=== PATIENT | female | born 1980 | race Caucasian/White ===

== ENCOUNTER → 2020-05-25 10:41 | Outpatient (BNVA) | payer MEDICAID, SELFPAY | PROVIDERS: PCP Internal Medicine; Referring Provider Internal Medicine; Visit Provider Internal Medicine Cardiovascular Disease | DX: I10 Essential (primary) hypertension (principal); G47.33 Obstructive sleep apnea (adult) (pediatric); E66.01 Morbid (severe) obesity due to excess calories; Z68.39 Body mass index [BMI] 39.0-39.9, adult; Z71.3 Dietary counseling and surveillance; Z79.899 Other long term (current) drug therapy | CPT/HCPCS: 93005; 99214 ==

== ENCOUNTER → 2020-08-18 11:28 | Outpatient (BNVA) | payer MEDICAID, SELFPAY | PROVIDERS: PCP Internal Medicine; Visit Provider Psychiatry & Neurology Neurology ==

== ENCOUNTER → 2021-02-23 08:51 | Outpatient (BNVA) | payer MEDICAID, SELFPAY | PROVIDERS: PCP Internal Medicine; Visit Provider Psychiatry & Neurology Neurology ==

== ENCOUNTER 2021-02-25 08:25 | Outpatient (REF) | payer MEDICAID, SELFPAY ==
--- NOTE | 2021-02-25 | EMG_ITS ---
Bilateral median and ulnar motor and sensory studies were performed. Bilateral radial sensory studies were performed and paraspinal muscles were tested. IMPRESSION: 1. Moderately severe bilateral median neuropathy across carpal tunnel. 2. [id number] bilateral ulnar neuropathy across cubital tunnel. MD LIZ Eagle/AHSAN / [id number]
== END 2021-02-25 08:26 | disposition home or self-care (01) ==
LOC: HO.NEURO 08:25
PROVIDERS: Visit Provider Internal Medicine
DX: R20.0 Anesthesia of skin (principal)
CPT/HCPCS: 95886; 95911

== ENCOUNTER 2021-03-12 09:06 | Outpatient (REF) | payer MEDICAID, SELFPAY ==
--- NOTE | ~2021-03-12 | US_ITS ---
EXAMINATION: US RETROPERITONEAL LIMITED (RENAL ONLY) CLINICAL INFORMATION: Dysuria, abdominal pain. COMPARISON: None TECHNIQUE: Real-time imaging of the kidneys. FINDINGS: RIGHT KIDNEY: 13.0 x 7.4 x 8.2 cm (SAG x AP x TRV). The kidney is normal in size, contour, and echogenicity. Renal cortical thickness is normal. No focal parenchymal lesions or hydronephrosis. Lower pole stone measuring up to 0.3 cm. LEFT KIDNEY: 12.2 x 7.5 x 6.8 cm (SAG x AP x TRV). The kidney is normal in size, contour, and echogenicity. Renal cortical thickness is normal. No renal calculi or focal parenchymal lesions. Minimal left-sided hydronephrosis. US/US renal BI IMPRESSION: 1. Right lower pole renal stone measuring 0.3 cm. No right-sided hydronephrosis. 2. Minimal left-sided hydronephrosis. No left-sided renal stone.
== END 2021-03-12 09:07 | disposition home or self-care (01) ==
LOC: HO.US 09:06
PROVIDERS: PCP Internal Medicine; Visit Provider Internal Medicine
DX: R30.0 Dysuria (principal); R10.9 Unspecified abdominal pain
CPT/HCPCS: 76775

== ENCOUNTER 2021-04-08 12:56 | Outpatient (REF) | payer MEDICAID, SELFPAY ==
--- NOTE | ~2021-04-08 | MM_ITS ---
EXAMINATION: MM SCREENING DIGITAL BREAST TOMOSYNTHESIS, BILATERAL CLINICAL INFORMATION: Screening. Asymptomatic. The lifetime risk of breast cancer based on the Tyrer-Cuzick Model is 16%. COMPARISON: Mammography: 07/05/2019, 04/18/2018 (new baseline) TECHNIQUE: Digital breast tomosynthesis is performed in both the craniocaudal and mediolateral oblique views along with computer-aided detection (CAD). Synthesized 2D images are generated from the tomosynthesis. Additional bilateral exaggerated CC views are provided. FINDINGS: There are scattered areas of fibroglandular density (ACR BI-RADS breast composition Category b). There are no significant masses, abnormal calcifications, or other abnormalities. Parenchymal pattern is similar to prior studies. The axilla and skin contours are unremarkable. MM/MM tomosynthesis screening BI IMPRESSION: No mammographic evidence of malignancy. ASSESSMENT: BI-RADS 1: Negative RECOMMENDATION: Routine annual mammography screening. This patient's information was entered into a reminder system with a target due date for their next mammogram.
== END 2021-04-08 12:57 | disposition home or self-care (01) ==
LOC: HO.MAMMO 12:56
PROVIDERS: Visit Provider Internal Medicine
DX: Z12.31 Encounter for screening mammogram for malignant neoplasm of breast (principal)
CPT/HCPCS: 77063; 77067

== ENCOUNTER → 2021-05-31 07:52 | Outpatient (BNVA) | payer MEDICAID, SELFPAY | PROVIDERS: PCP Internal Medicine; Referring Provider Internal Medicine; Visit Provider Physician Assistant | DX: E66.01 Morbid (severe) obesity due to excess calories (principal); G47.33 Obstructive sleep apnea (adult) (pediatric); I10 Essential (primary) hypertension | CPT/HCPCS: 99202 ==

== ENCOUNTER 2021-06-17 08:36 | Outpatient (REF) | payer MEDICAID, SELFPAY ==
[2021-06-17 08:57] LABS: MANUAL DIFF FLAG NO
[2021-06-17 09:11] LABS: Basophils Percent Auto 0.3 % (0-2); Eosinophils Percent Auto 0.2 % (0-4); Hematocrit 38.9 % (37.0-47.0); Hemoglobin 12.9 g/dl (12.0-16.0); Imm Gran Abs Auto 0.03 X10*3/uL (0.00-0.03); Imm Gran Pct Auto 0.3 % (0.0-0.4); Lymphocytes Absolute Auto 2.5 X10*3/uL (1.2-4.9); Lymphocytes Percent Auto 27.9 % (20-40); Mean Corpuscular HGB Conc 33.2 g/dl (31.0-35.0); Mean Corpuscular Hemoglobin 29.4 pg (27.0-33.0); Mean Corpuscular Volume 88.6 fL (80.0-98.0); Mean Platelet Volume 10.9 fL (9.4-12.3); Monocytes Absolute Auto 0.5 X10*3/uL (0.1-1.2); Monocytes Percent Auto 5.7 % (2-11); Neutrophils Absolute Auto 5.8 x10*3/uL (2.0-8.3); Neutrophils Percent Auto 65.6 % (45-73); Platelet Count 241 X10*3/uL (160-400); Red Blood Count 4.39 X10*6/uL (4.20-5.50); Red Cell Distribution Width 12.6 % (11.0-16.0); White Blood Count 8.8 X10*3/uL (4.8-10.8)
[2021-06-17 09:20] LABS: Estimated Average Glucose 117 mg/dL; Hemoglobin A1c % 5.7 %
[2021-06-17 09:39] LABS: Alanine Aminotransferase 48 U/L (0-31); Albumin Level 4.5 g/dL (3.5-5.0); Alkaline Phosphatase 73 U/L (39-117); Anion Gap 11 (12-20); Aspartate Amino Transferase 35 U/L (5-31); Bilirubin Total 0.8 mg/dL (0.0-1.0); Blood Urea Nitrogen 13 mg/dL (9-16); C Reactive Protein 0.49 mg/dL (< or = 0.50); Calcium 9.5 mg/dL (8.4-10.2); Carbon Dioxide 29 mmol/L (22-29); Chloride 102 mmol/L (96-108); Cholesterol 188 mg/dL; Estimated Glomerular Filt Rate > 60; Glucose Random 91 mg/dL (60-115); HDL Cholesterol 62 mg/dL; Iron 90 mcg/dL (30-160); LDL Cholesterol Calculated 112 mg/dl; Percent Iron Saturation 25 % (15-50); Potassium 4.3 mmol/L (3.3-5.1); Sodium 138 mmol/L (135-145); Total Iron Binding Capacity 361 mcg/dL (228-428); Total Protein 7.6 g/dL (6.5-8.0); Triglycerides 70 mg/dL; Unsaturated Iron Binding 271 ug/dL
[2021-06-17 10:02] LABS: Insulin 46 uU/mL (2-29); TSH reflex Free T4 0.91 uIU/mL (0.32-4.0); Vitamin D 25-OH Total 13.6 ng/mL (>30)
[2021-06-17 10:25] LABS: Folate 9.7 ng/mL (> or = 4.0); Vitamin B12 213 pg/mL (200-900)
[2021-06-17 10:33] LABS: Ferritin 86 ng/mL (10-122)
[2021-06-19 02:50] LABS: Calcium (PTHI) 9.7 mg/dL (8.6-10.2); PTHI 70 pg/mL (14-64)
[2021-06-20 14:10] LABS: Vitamin B1 7 nmol/L (8-30)
[2021-06-22 01:45] LABS: Zinc 82 mcg/dL (60-130)
[2021-06-22 02:01] LABS: Vitamin A 32 mcg/dL (38-98)
== END 2021-06-17 08:37 | disposition home or self-care (01) ==
LOC: HO.LAB 08:36
PROVIDERS: PCP Internal Medicine; Visit Provider Physician Assistant
DX: E66.01 Morbid (severe) obesity due to excess calories (principal); G47.33 Obstructive sleep apnea (adult) (pediatric); I10 Essential (primary) hypertension
CPT/HCPCS: 36415; 80053; 80061; 82306; 82607; 82728; 82746; 83036; 83525; 83540; 83970; 84425; 84443; 84590; 84630; 85025; 86140

== ENCOUNTER → 2021-06-28 09:36 | Outpatient (BNVA) | payer MEDICAID, SELFPAY | PROVIDERS: PCP Internal Medicine; Referring Provider Internal Medicine; Visit Provider Physician Assistant | DX: E66.01 Morbid (severe) obesity due to excess calories (principal); Z68.41 Body mass index [BMI] 40.0-44.9, adult | CPT/HCPCS: 99212 ==

== ENCOUNTER 2021-06-29 10:39 | Outpatient (REF) | payer MEDICAID, SELFPAY ==
--- NOTE | ~2021-06-29 | XR_ITS ---
EXAMINATION: XR CHEST CLINICAL INFORMATION: Encounter for other preprocedural examination COMPARISON: Previous chest x-ray June 2018 TECHNIQUE: 2 views of the chest were obtained. FINDINGS: The cardiac and mediastinal contours are normal. The lungs are clear. There is no pleural effusion or pneumothorax. Bony structures are unremarkable. XR/XR chest 2V IMPRESSION: Unremarkable examination.
--- NOTE | 2021-06-29 11:44 | ECG_ITS ---
Test Reason : preop Blood Pressure : / mmHG Vent. Rate : 074 BPM Atrial Rate : 074 BPM P-R Int : 168 ms QRS Dur : 074 ms QT Int : 382 ms P-R-T Axes : 054 029 018 degrees QTc Int : 424 ms Normal sinus rhythm with sinus arrhythmia Nonspecific T wave abnormality Inferior leads Abnormal ECG No significant changes seen Referred By: Alexandrea Bowman Electronically Signed By:HITESH CARRASCO MD
== END 2021-06-29 10:40 | disposition home or self-care (01) ==
LOC: HO.XRAY 10:39
PROVIDERS: Absent Provider Physician Assistant; PCP Internal Medicine; Referring Provider Internal Medicine; Visit Provider Dietitian, Registered
DX: Z01.818 Encounter for other preprocedural examination (principal); E66.01 Morbid (severe) obesity due to excess calories
CPT/HCPCS: 71046; 93005; 97802

== ENCOUNTER 2021-07-21 08:38 | Outpatient (REF) | payer MEDICAID, SELFPAY ==
--- NOTE | ~2021-07-21 | FL_ITS ---
EXAMINATION: XR FLUOROSCOPY UPPER GI WITH AIR CLINICAL INFORMATION: Moderate obesity. Patient reports prior gastric sleeve procedure. COMPARISON: None TECHNIQUE: Upper GI with air FINDINGS: Normal swallowing reflex. Normal esophageal motility. No mass or mucosal lesions are seen esophagus or stomach. There is prominent gastroesophageal reflux in the supine position. No significant hiatal hernia seen. FLUOROSCOPY TIME: 2.2 minutes DOSE AREA PRODUCT: 42.5 uGy-m2 (microgray-meter squared) FL/FL upper GI w air IMPRESSION: Prominent gastroesophageal reflux.
--- NOTE | ~2021-07-21 | US_ITS ---
EXAMINATION: US COMPLETE ABDOMEN WITH LIVER ELASTOGRAPHY CLINICAL INFORMATION: Preop. Obesity. COMPARISON: Previous renal ultrasound February 2021 TECHNIQUE: Real-time imaging of the abdominal viscera. Noninvasive ultrasound liver fibrosis assessment is performed using Teri ElastPQ point quantification shear wave elastography (pSWE) with a C5-2 MHz transducer. Multiple elastography samples are obtained. FINDINGS: PANCREAS: Normal. ABDOMINAL AORTA: The proximal, middle, and distal aortic segments are normal in caliber. INFERIOR VENA CAVA: Visualized portions are normal. LIVER: Liver echotexture is slightly increased. The liver is upper normal in size. The liver contour is normal. No focal lesion or intrahepatic biliary duct dilatation. The right lobe measures 18 cm in length. The left lobe measures 15 cm in length. Portal flow is normal/hepatopedal Shear wave liver elastography median stiffness is 2.5 m/s (reference: normal median stiffness is 1.3 m/s or less). IQR/median stiffness to assess sampling precision is 0.2 (reference: good quality data set is IQR/median stiffness of 0.15 or less). GALLBLADDER: Normal. The gallbladder is physiologically distended without evidence of stones, sludge, polyps, wall thickening or pericholecystic fluid. COMMON BILE DUCT: Normal in caliber measuring 0.3 cm in diameter. RIGHT KIDNEY: Normal. No hydronephrosis. No renal calculi or focal parenchymal lesions. The kidney measures 12.6 cm in maximum dimension. LEFT KIDNEY: Normal. No hydronephrosis. No renal calculi or focal parenchymal lesions. The kidney measures 12.2 cm in maximum dimension. SPLEEN: Normal. The spleen measures 11.2 cm in maximum dimension. FREE FLUID: None. US/US abdomen comp w elastography IMPRESSION: 1. Impression: Echogenic upper normal-size liver probably representing fatty infiltration. 2. Liver elastography: Limited due to sampling error. Liver stiffness is elevated. REFERENCE: Society of Radiologists in Ultrasound Liver Stiffness Thresholds (2020): LIVER STIFFNESS THRESHOLDS: *Liver Stiffness equal or less than 1.3 m/s: High probability of being normal. *Liver Stiffness less than 1.7 m/s: In the absence of other known clinical signs, rules out compensated advanced chronic liver disease. *Liver Stiffness 1.7-2.1 m/s: Suggestive of compensated advanced chronic liver disease but need further test for confirmation. *Liver Stiffness over 2.1 m/s: Rules in compensated advanced chronic liver disease. *Liver Stiffness over 2.4 m/s: Suggestive of clinically significant portal hypertension. QUALITY OF DATA SET: *IQR/Median value equal or less than 0.15 implies a quality data set. *IQR/Median value over 0.15 implies a poor quality data set. SIGNIFICANT CHANGE FROM PRIOR EXAM: Significant change if liver stiffness measurement is 10% or greater from prior exam. OTHER CONSIDERATIONS: The stage of liver fibrosis may be overestimated in the setting of acute hepatitis, liver inflammation, elevated liver function tests, hepatic vascular congestion, obstructive cholestasis, non-fasting state, and infiltrative diseases such as amyloidosis and lymphoma. In some patients with NAFLD, the liver stiffness thresholds for compensated advanced chronic liver disease may be lower. In causes other than viral hepatitis and NAFLD, liver stiffness thresholds are not well established.
== END 2021-07-21 08:39 | disposition home or self-care (01) ==
LOC: HO.US 08:38
PROVIDERS: PCP Internal Medicine; Visit Provider Physician Assistant
DX: Z01.818 Encounter for other preprocedural examination (principal); E66.01 Morbid (severe) obesity due to excess calories; K21.9 Gastro-esophageal reflux disease without esophagitis
CPT/HCPCS: 74246; 76705; 76981

== ENCOUNTER → 2021-07-22 08:03 | Outpatient (BNVA) | payer MEDICAID, SELFPAY | PROVIDERS: PCP Internal Medicine; Visit Provider Physician Assistant ==

== ENCOUNTER → 2021-07-28 08:58 | Outpatient (BNVA) | payer MEDICAID, SELFPAY | PROVIDERS: PCP Internal Medicine; Visit Provider Physician Assistant ==

== ENCOUNTER 2021-08-02 10:51 | Outpatient (REF) | payer MEDICAID, SELFPAY ==
[2021-08-03 11:53] LABS: H Pylori Breath Test Negative (Negative)
== END 2021-08-02 10:52 | disposition home or self-care (01) ==
LOC: HO.LNP 10:51
PROVIDERS: PCP Internal Medicine; Referring Provider Physician Assistant; Visit Provider Dietitian, Registered
DX: E66.01 Morbid (severe) obesity due to excess calories (principal); G47.33 Obstructive sleep apnea (adult) (pediatric); I10 Essential (primary) hypertension; Z11.0 Encounter for screening for intestinal infectious diseases; Z71.3 Dietary counseling and surveillance; Z68.41 Body mass index [BMI] 40.0-44.9, adult
CPT/HCPCS: 83013; 97803; 99211

== ENCOUNTER → 2021-08-10 08:58 | Outpatient (REF) | payer MEDICAID, SELFPAY | LOC: HO.SL 08:58 | PROVIDERS: PCP Internal Medicine; Visit Provider Internal Medicine | DX: G47.33 Obstructive sleep apnea (adult) (pediatric) (principal) | CPT/HCPCS: 99211 ==

== ENCOUNTER → 2021-09-02 08:27 | Outpatient (BNVA) | payer MEDICAID, SELFPAY | PROVIDERS: PCP Internal Medicine; Referring Provider Physician Assistant; Visit Provider Dietitian, Registered | DX: E66.01 Morbid (severe) obesity due to excess calories (principal); Z71.3 Dietary counseling and surveillance | CPT/HCPCS: 97803 ==

== ENCOUNTER → 2021-09-06 08:15 | Outpatient (BNVA) | payer MEDICAID, SELFPAY | PROVIDERS: PCP Internal Medicine; Referring Provider Internal Medicine; Visit Provider Physician Assistant | DX: E66.01 Morbid (severe) obesity due to excess calories (principal); G47.33 Obstructive sleep apnea (adult) (pediatric); K21.00 Gastro-esophageal reflux disease with esophagitis, without bleeding; I10 Essential (primary) hypertension; Z98.84 Bariatric surgery status; Z68.41 Body mass index [BMI] 40.0-44.9, adult | CPT/HCPCS: 99212 ==

== ENCOUNTER → 2021-09-23 08:15 | Outpatient (BNVA) | payer MEDICAID, SELFPAY | PROVIDERS: PCP Internal Medicine; Referring Provider Physician Assistant; Visit Provider Dietitian, Registered | DX: E66.01 Morbid (severe) obesity due to excess calories (principal); Z68.41 Body mass index [BMI] 40.0-44.9, adult | CPT/HCPCS: 97803 ==

== ENCOUNTER → 2021-10-01 08:17 | Outpatient (BNVA) | payer MEDICAID, SELFPAY | PROVIDERS: PCP Internal Medicine; Referring Provider Internal Medicine; Visit Provider Physician Assistant | DX: E66.01 Morbid (severe) obesity due to excess calories (principal); I10 Essential (primary) hypertension; G47.33 Obstructive sleep apnea (adult) (pediatric); Z98.84 Bariatric surgery status; Z68.41 Body mass index [BMI] 40.0-44.9, adult | CPT/HCPCS: 99212 ==

== ENCOUNTER → 2021-10-19 09:05 | Outpatient (BNVA) | payer MEDICAID, SELFPAY | PROVIDERS: PCP Internal Medicine; Referring Provider Internal Medicine; Visit Provider Internal Medicine Cardiovascular Disease | DX: Z01.818 Encounter for other preprocedural examination (principal); I10 Essential (primary) hypertension | CPT/HCPCS: 93005; 99212 ==

== ENCOUNTER → 2021-10-25 08:11 | Outpatient (BNVA) | payer MEDICAID, SELFPAY | PROVIDERS: PCP Internal Medicine; Referring Provider Physician Assistant; Visit Provider Dietitian, Registered | DX: E66.01 Morbid (severe) obesity due to excess calories (principal) | CPT/HCPCS: 97803 ==

== ENCOUNTER → 2021-10-27 08:13 | Outpatient (BNVA) | payer MEDICAID, SELFPAY | PROVIDERS: PCP Internal Medicine; Referring Provider Internal Medicine; Visit Provider Physician Assistant | DX: E66.01 Morbid (severe) obesity due to excess calories (principal); G47.33 Obstructive sleep apnea (adult) (pediatric); I10 Essential (primary) hypertension; Z98.84 Bariatric surgery status; Z68.41 Body mass index [BMI] 40.0-44.9, adult | CPT/HCPCS: 99212 ==

== ENCOUNTER → 2021-11-16 07:59 | Outpatient (BNVA) | payer MEDICAID, SELFPAY | PROVIDERS: PCP Internal Medicine; Referring Provider Physician Assistant; Visit Provider Dietitian, Registered | DX: Z71.3 Dietary counseling and surveillance (principal) | CPT/HCPCS: 97803 ==

== ENCOUNTER → 2021-11-26 08:07 | Outpatient (BNVA) | payer MEDICAID, SELFPAY | PROVIDERS: PCP Internal Medicine; Visit Provider Physician Assistant | DX: Z13.89 Encounter for screening for other disorder (principal) ==

== ENCOUNTER → 2022-03-04 09:20 | Outpatient (BNVA) | payer MEDICAID, SELFPAY | PROVIDERS: PCP Internal Medicine; Visit Provider Physician Assistant | DX: E66.01 Morbid (severe) obesity due to excess calories (principal); K21.00 Gastro-esophageal reflux disease with esophagitis, without bleeding; G47.33 Obstructive sleep apnea (adult) (pediatric); I10 Essential (primary) hypertension; Z98.84 Bariatric surgery status; Z68.41 Body mass index [BMI] 40.0-44.9, adult | CPT/HCPCS: 99212 ==

== ENCOUNTER → 2022-04-01 09:45 | Outpatient (BNVA) | payer MEDICAID, SELFPAY | PROVIDERS: PCP Internal Medicine; Visit Provider Dietitian, Registered | DX: E66.01 Morbid (severe) obesity due to excess calories (principal); Z68.39 Body mass index [BMI] 39.0-39.9, adult; Z71.3 Dietary counseling and surveillance | CPT/HCPCS: 97803 ==

== ENCOUNTER → 2022-04-11 10:54 | Outpatient (BNVA) | payer MEDICAID, SELFPAY | PROVIDERS: PCP Internal Medicine; Visit Provider Physician Assistant | DX: E66.01 Morbid (severe) obesity due to excess calories (principal); Z68.39 Body mass index [BMI] 39.0-39.9, adult; K21.00 Gastro-esophageal reflux disease with esophagitis, without bleeding; Z98.84 Bariatric surgery status | CPT/HCPCS: 99212 ==

== ENCOUNTER 2022-04-14 12:31 | Outpatient (REF) | payer MEDICAID, SELFPAY ==
--- NOTE | ~2022-04-14 | MM_ITS ---
EXAMINATION: MM SCREENING DIGITAL BREAST TOMOSYNTHESIS, BILATERAL CLINICAL INFORMATION: Screening. Asymptomatic. Family history breast cancer, mother. The lifetime risk of breast cancer based on the Tyrer-Cuzick Model is 16%. COMPARISON: Mammography: 04/08/2021, 07/05/2019, 04/18/2018 (new baseline). TECHNIQUE: Digital breast tomosynthesis is performed in both the craniocaudal and mediolateral oblique views along with computer-aided detection (CAD). Synthesized 2D images are generated from the tomosynthesis. FINDINGS: There are scattered areas of fibroglandular density (ACR BI-RADS breast composition Category b). There are no significant masses, abnormal calcifications, or other abnormalities. Parenchymal pattern is similar to prior studies. There is no developing density or architectural abnormality. The axilla and skin contours are unremarkable. No significant changes. MM/MM tomosynthesis screening BI IMPRESSION: No mammographic evidence of malignancy. ASSESSMENT: BI-RADS 1: Negative RECOMMENDATION: Routine annual mammography screening. This patient's information was entered into a reminder system with a target due date for their next mammogram.
== END 2022-04-14 12:32 | disposition home or self-care (01) ==
LOC: HO.MAMMO 12:31
PROVIDERS: PCP Internal Medicine; Visit Provider Internal Medicine
DX: Z12.31 Encounter for screening mammogram for malignant neoplasm of breast (principal)
CPT/HCPCS: 77063; 77067

== ENCOUNTER → 2022-09-05 15:40 | Outpatient (BNVA) | payer MEDICAID, SELFPAY | PROVIDERS: PCP Internal Medicine; Visit Provider Physician Assistant | DX: E66.01 Morbid (severe) obesity due to excess calories (principal); Z98.84 Bariatric surgery status; Z68.39 Body mass index [BMI] 39.0-39.9, adult | CPT/HCPCS: 99212 ==

== ENCOUNTER → 2022-09-21 11:58 | Outpatient (BNVA) | payer MEDICAID, SELFPAY | PROVIDERS: PCP Internal Medicine; Visit Provider Orthopaedic Surgery | DX: Z13.89 Encounter for screening for other disorder (principal) ==

== ENCOUNTER 2023-04-20 12:30 | Outpatient (REF) | payer MEDICAID, SELFPAY | END 2023-04-20 12:31 | disposition home or self-care (01) | LOC: HO.MAMMO 12:30 | PROVIDERS: PCP Internal Medicine; Visit Provider Internal Medicine | DX: Z12.31 Encounter for screening mammogram for malignant neoplasm of breast (principal) | CPT/HCPCS: 77063; 77067 ==

== ENCOUNTER → 2023-04-20 12:45 | Outpatient (BNV) | payer MEDICAID, SELFPAY | PROVIDERS: PCP Internal Medicine; Visit Provider Radiology Diagnostic Radiology | DX: Z12.31 Encounter for screening mammogram for malignant neoplasm of breast (principal) | CPT/HCPCS: 77063; 77067 ==

== ENCOUNTER 2023-04-27 10:15 | Outpatient (AMB) | payer MEDICAID, SELFPAY ==
--- NOTE | 2023-04-27 10:24 | A.OFFVIS_ITS ---
Intake VS Expanded 04/27/23 10:26 Height 5 ft 11 in Weight 285 lb 12 oz BMI 39.8 BP 134/72 Blood Pressure Location Rt brachial Blood Pressure Position Sitting Respiratory Rate 16 Pulse 86 Pulse Source Pulse Oximeter Temp 96.9 F Temperature Source Temporal Artery Scan Pulse Oximetry 99 Oxygen Delivery Method Room Air Body Fat 106.8 Body Fat Percentage 37.3 Free Fat Mass 179.0 Muscle Mass 170.0 Visceral Mass 10.0 Water Mass 127.8 BMR 2,499 Intake Visit Reasons: (OV) F/U SWL Allergies sulfacetamide Allergy (Unknown, Verified 04/27/23 10:29) BREATHING Medication List - Last Reconciled 04/27/23 by NIKA Crowe blood sugar diagnostic (FreeStyle Lite Strips) As directed cholecalciferol (vitamin D3) 25 mcg PO DAILY cyanocobalamin (vitamin B-12) 500 mcg PO DAILY diclofenac sodium 1% 2 grams topical BID furosemide 20 mg PO Q OTHER DAY lancets (FreeStyle Lancets) As directed loratadine 10 mg PO DAILY metformin ER 1,000 mg PO QPM metoprolol succinate ER 200 mg PO DAILY metoprolol succinate ER 100 mg PO DAILY prednisone 0 mg PO somatropin (Genotropin) 6 mg subcut DAILY thiamine HCl (vitamin B1) 50 mg (1/2 x 100 mg) PO DAILY vitamin A palmitate 20,000 units PO DAILY 2 weeks HPI HPI Comments History of Present Illness Details Pt started our SWL program in May 2021 at 294 lbs, her last appt was Aug 2022 at 283.2lbs. Today 285.8lbs with BMI 39.9. Seen in followup for possible revision of gastric bypass. [facility] ~5 years ago. Reports reflux when she eats, certain things . Found previous meal plans difficult to follow due to cutting out sugar from her diet. Takes metformin, no insulin. Likes Premier, Fairlife shakes; does not care for bars. Likes Chobani yogurts. Wakes at 6am; bedtime at 9. Dinner at 5-6pm. Exercise - went back to treadmill Requested to follow with Kenrick as she has a friend who is also seeing him and recommended him. [facility] Medical History HTN (hypertension) Morbid obesity DANIEL (obstructive sleep apnea) Surgical History History of carpal tunnel release Hx of hysterectomy History of pituitary surgery Hx of gastric bypass Family History Father No problems noted. Mother CVD (cardiovascular disease) HTN (hypertension) Diabetes Sister No problems noted. 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 Physical Exam Vital Signs: Last Vital Signs Temp 96.9 F 04/27/23 10:26 Pulse 86 04/27/23 10:26 Resp 16 04/27/23 10:26 BP 134/72 04/27/23 10:26 Pulse Ox 99 04/27/23 10:26 Oxygen Delivery Method Room Air 04/27/23 10:26 BMI result Body Mass Index 39.8 Assessment & Plan Assessment & Plan (1) Hx of gastric bypass: Code(s): Z98.84 - Bariatric surgery status (2) Morbid obesity: Comment: See above Code(s): E66.01 - Morbid (severe) obesity due to excess calories (3) DANIEL (obstructive sleep apnea): Comment: see above Code(s): G47.33 - Obstructive sleep apnea (adult) (pediatric) (4) HTN (hypertension): Comment: Code(s): I10 - Essential (primary) hypertension (5) Reflux esophagitis: Code(s): K21.00 - Gastro-esophageal reflux disease with esophagitis, without bleeding Plan New meal plan based on pt's preferences: 7-9am Premier or Fairlife shake 11am-1pm Honduran yogurt 2-4pm another shake 5 or 6pm dinner- 3oz protein, 3oz salad/vegetables 7-9pm another yogurt can use fruits from green list in between meals if she feels her blood sugar is running low Initial goal of 4d/week on treadmill with 300 calorie goal to start. Will hold off on repeating any preop testing until pt returns for next visit as she has not been reliably consistent with communication and attending all appointments. RTC 3-4 weeks, can have next visit with Kenrick. Pt will let us know if she is unable to follow the plan or has difficulty for any reason. Patient is obese and is not considered stable at this time. I spent a total of 30 minutes reviewing/updating records, examining the patient and counseling the patient on weight management as detailed above. Coding Level of Care Code Est Pt Level 4 (21058) Diagnoses Hx of gastric bypass Z98.84 Morbid obesity E66.01 DANIEL (obstructive sleep apnea) G47.33 HTN (hypertension) I10 Reflux esophagitis K21.00
[2023-04-27 10:26] VITALS: BP 134/72; PULSE 86; RESP 16; TEMP 36.1; O2SAT 99; BMI 39.8
== END 2023-04-27 11:20 | disposition home or self-care (01) ==
PROVIDERS: PCP Internal Medicine; Visit Provider Physician Assistant Surgical
DX: E66.01 Morbid (severe) obesity due to excess calories (principal); Z68.39 Body mass index [BMI] 39.0-39.9, adult; G47.33 Obstructive sleep apnea (adult) (pediatric); I10 Essential (primary) hypertension; K21.00 Gastro-esophageal reflux disease with esophagitis, without bleeding
CPT/HCPCS: 99214

== ENCOUNTER → 2023-04-27 10:15 | Outpatient (BNVA) | payer MEDICAID, SELFPAY | PROVIDERS: PCP Internal Medicine; Visit Provider Physician Assistant Surgical | DX: E66.01 Morbid (severe) obesity due to excess calories (principal); Z68.39 Body mass index [BMI] 39.0-39.9, adult; G47.33 Obstructive sleep apnea (adult) (pediatric); I10 Essential (primary) hypertension; K21.00 Gastro-esophageal reflux disease with esophagitis, without bleeding; Z98.84 Bariatric surgery status | CPT/HCPCS: 99212 ==

== ENCOUNTER 2023-05-17 15:20 | Outpatient (AMB) | payer MEDICAID, SELFPAY ==
--- NOTE | 2023-05-17 15:22 | MHC.OFFVISWM ---
Intake VS Expanded 05/17/23 15:30 BP 127/75 Blood Pressure Location Rt brachial Blood Pressure Position Sitting Pulse 112 H Pulse Source Pulse Oximeter Temp 97.4 F Temperature Source Temporal Artery Scan Pulse Oximetry 100 Oxygen Delivery Method Room Air Height 5 ft 11 in Weight 283 lb 6.4 oz BMI 39.5 Body Fat % 38.4 Body Fat Mass 108.6 Fat Free Mass 174.6 Visceral Fat Rating 11.0 Body Water % 44.0 Body Water Mass 124.6 Muscle Mass/Score 165.8 Basal Metabolic Rate/Score 2,434 Intake Visit Reasons: (OV) F/U SWL Investigations Manager Required: Yes Investigations Manager Name: office cmi Allergies sulfacetamide Allergy (Unknown, Verified 05/17/23 15:25) BREATHING Medication List - Last Reconciled 05/17/23 by NIKA Hanson blood sugar diagnostic (FreeStyle Lite Strips) As directed cholecalciferol (vitamin D3) 25 mcg PO DAILY cyanocobalamin (vitamin B-12) 500 mcg PO DAILY diclofenac sodium 1% 2 grams topical BID furosemide 20 mg PO Q OTHER DAY lancets (FreeStyle Lancets) As directed loratadine 10 mg PO DAILY metformin ER 1,000 mg PO QPM metoprolol succinate ER 200 mg PO DAILY metoprolol succinate ER 100 mg PO DAILY prednisone 0 mg PO somatropin (Genotropin) 6 mg subcut DAILY thiamine HCl (vitamin B1) 50 mg (1/2 x 100 mg) PO DAILY vitamin A palmitate 20,000 units PO DAILY 2 weeks HPI HPI Comments History of Present Illness Details The patient is a pleasant 43 year old female who returns to the clinic for pre-operative surgical weight loss management. She has a history of bariatric surgery dating back 3 or 4 years at [facility]. She returns to our office as she was looking for skin removal surgery. Her weight has been fairly stable over the last 1 year and she admittedly states she does not want to lose much weight, just several pounds and then have skin removal surgery. We discussed that she remains obese and would need to have a stable healthy weight prior to surgery. Her greater concern is her ongoing back pain and need for spine surgery. The patient reports she is seeing a landing support specialist at [facility] and [facility] [address] a surgery for her back. She is f/u 06/30/23 and has a mass in her back and nerve pinch. Current meal plan includes: RTD fairlife (26 gm) korean yogurt another shake yogurt meal, protein and not measuring, sometimes boiled potato Drinking 32 oz of water Current exercise plan includes: treadmill at the gym, 3-4 days per week, 175-200 calories. limited by back pain. [facility] Medical History HTN (hypertension) Morbid obesity DANIEL (obstructive sleep apnea) Surgical History History of carpal tunnel release Hx of hysterectomy History of pituitary surgery Hx of gastric bypass Family History Father No problems noted. Mother CVD (cardiovascular disease) HTN (hypertension) Diabetes Sister No problems noted. 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 Physical Exam Vital Signs: Last Vital Signs Temp 97.4 F 05/17/23 15:30 Pulse 112 H 05/17/23 15:30 BP 127/75 05/17/23 15:30 Pulse Ox 100 05/17/23 15:30 Oxygen Delivery Method Room Air 05/17/23 15:30 BMI result Body Mass Index 39.5 Const General: healthy appearing and no acute distress; No comfortable (Appeared to be in slight discomfort when getting up from a chair) Resp Effort & Inspection: normal respiratory effort Auscultation: clear to auscultation bilaterally Cardio Rate: regular rate Rhythm: regular rhythm GI Auscultation: normal bowel sounds Extrem General: Yes normal to inspection Assessment & Plan Assessment & Plan (1) Obesity (BMI 30-39.9): Code(s): E66.9 - Obesity, unspecified Plan: At this time, she is going to follow up with Spine surgery at [facility]. She may return to our program if she wishes to pursue skin removal surgery with the understanding that she will likely need to lose 90 lb or more and maintain a stable healthy weight. We also discussed the program guidelines of using powdered protein shake products and protein bars as meal supplements. She will return to the office if she wishes. Coding Level of Care Code Est Pt Level 3 (08862) Diagnoses Obesity (BMI 30-39.9) E66.9
[2023-05-17 15:30] VITALS: BP 127/75; PULSE 112; TEMP 36.3; O2SAT 100; BMI 39.5
== END 2023-05-17 16:02 | disposition home or self-care (01) ==
PROVIDERS: PCP Internal Medicine; Visit Provider Physician Assistant Surgical
DX: E66.9 Obesity, unspecified (principal)
CPT/HCPCS: 99213

== ENCOUNTER → 2023-05-17 15:20 | Outpatient (BNVA) | payer MEDICAID, SELFPAY | PROVIDERS: PCP Internal Medicine; Visit Provider Physician Assistant Surgical | DX: E66.01 Morbid (severe) obesity due to excess calories (principal); I10 Essential (primary) hypertension; G47.33 Obstructive sleep apnea (adult) (pediatric); Z68.39 Body mass index [BMI] 39.0-39.9, adult; Z98.84 Bariatric surgery status | CPT/HCPCS: 99212 ==

== ENCOUNTER 2024-09-17 14:23 | Outpatient (AMB) | payer MEDICAID, SELFPAY ==
--- NOTE | 2024-09-17 14:25 | A.OFFVIS_ITS ---
Vital Signs 3 09/17/24 14:34 Height 6 ft Weight 275 lb BMI 37.3 BP 145/82 H Blood Pressure Location Lt brachial Position Sitting Pulse 88 Intake Visit Reasons: abdominal hematoma Intake Note: Patient is seen in office for evaluation and treatment of an abdominal wall hematoma. Pt c/o: had an abdominoplasty done on 05/23/24 in [place], couple weeks later felt a lump in the area, ultrasound done 08/02/24, currently has fluid in the area, denies redness, discharge, Concreting Supervisor Required: No Accompanied by: Self / Same As Patient Allergies sulfacetamide Allergy (Unknown, Verified 09/17/24 14:51) BREATHING Medication List - Last Reconciled 09/17/24 by Ollie Khan MD blood sugar diagnostic (FreeStyle Lite Strips) As directed cholecalciferol (vitamin D3) 25 mcg PO DAILY cyanocobalamin (vitamin B-12) 500 mcg PO DAILY diclofenac sodium 1% 2 grams topical BID furosemide 20 mg PO Q OTHER DAY lancets (FreeStyle Lancets) As directed loratadine 10 mg PO DAILY metformin ER 1,000 mg PO QPM metoprolol succinate ER 200 mg PO DAILY metoprolol succinate ER 100 mg PO DAILY prednisone 0 mg PO somatropin (Genotropin) 6 mg subcut DAILY thiamine HCl (vitamin B1) 50 mg (1/2 x 100 mg) PO DAILY vitamin A palmitate 20,000 units PO DAILY 2 weeks HPI Comments Details: 44-year-old female patient with a previous history of abdominoplasty performed in [place] in 05/19/2024, complicated by a postoperative hematoma in the right lower quadrant. Patient reports some discomfort associated with the lump. She underwent ultrasound of the abdomen which confirmed a hematoma in the right lower quadrant (performed at [facility]). She presents today for drainage. She denies fever, chills, bleeding or discharge from the incisions. REPLACED BY [facility] Medical History DANIEL (obstructive sleep apnea) Morbid obesity HTN (hypertension) Surgical History Hx of abdominoplasty (05/23/24) History of carpal tunnel release Hx of hysterectomy History of pituitary surgery Hx of gastric bypass Family History Father No problems noted. Mother CVD (cardiovascular disease) HTN (hypertension) Diabetes Sister No problems noted. 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 Review of Systems Const All systems reviewed & are unremarkable except as noted in HPI and below Physical Exam Vital Signs: Last Vital Signs Pulse 88 09/17/24 14:34 BP 145/82 H 09/17/24 14:34 BMI result Body Mass Index 37.3 Const General: cooperative and no acute distress Nutritional Appearance: well nourished Orientation/consciousness: patient oriented x3 Limitations: no limitations HEENT Head: Yes normocephalic and Yes atraumatic Ears: hearing grossly normal bilaterally Resp Effort & Inspection: normal respiratory effort, no audible wheezes, no cough and no respiratory distress Cardio Jugular venous distension: no JVD GI Other: Well-healed abdominoplasty incisions with no evidence of infection. An obvious lump located in the right lower quadrant which is fluctuant in most consistent with a seroma/hematoma. Inspection: Yes normal to inspection Abdomen image: 2 1. Palpable seroma approximately 8 cm in diameter. Skin Other: Warm, dry, no rash Neuro General: patient oriented x3 Extrem General: Yes no clubbing, cyanosis or edema Office Procedures Aspiration of Seroma Details: After assuring informed consent and confirming the site of procedure in the right lower quadrant abdomen the skin was prepped with Betadine in draped in a sterile fashion. Local anesthesia (lidocaine 1% with epinephrine 2 mL) was infiltrated directly over the seroma. An 18 gauge needle was then inserted into the seroma. Approximately 15 mL of brown liquefied hematoma was aspirated. No further fluid could be aspirated. Sterile bandage was applied. The patient tolerated the procedure well. Aspiration of Seroma: 53418 Seroma Aspiration All charges added?: Procedure code (CPT) selection complete Assessment & Plan Assessment & Plan (1) Hematoma of abdominal wall: Code(s): S30.1XXA - Contusion of abdominal wall, initial encounter Category: Medical Plan Patient presents with a large seroma in the right lower quadrant. Attempt at percutaneous drainage at the bedside was performed today in the office. Only a small amount of fluid could be aspirated at this time. Fluid may be loculated therefore I recommended an ultrasound-guided aspiration. She should return following this procedure. Orders: Orders 2 US guided punture aspiration Today S30.1XXA - Contusion of abdominal wall, initial encounter Coding Level of Care Code New Pt Level 4 (71177) Diagnoses Hematoma of abdominal wall S30.1XXA CPT Codes Aspiration of Seroma ([id number])
[2024-09-17 14:34] VITALS: BP 145/82; PULSE 88; BMI 37.3
--- OUTSIDE RECORDS SUMMARY | 2024-09-17 15:25 | XMS_ITS | Encounter Summary ---
Author Organization [employer] Address [address] [place] [address] Care Team Providers Care Microbiological Lab Technician Name Role Phone David Bynum MD Primary Care Provider [phone] Encounter Details Date Type Department Care Team ([facility] st Contact Info) Description 12/13/2022 Orders Only [facility] [address] [place] [address] Gillian Balderrama LPN Social History Tobacco Use Types Packs/Day Years Used Date Smoking Tobacco: Never Passive Smoke Exposure: Never Smokeless Tobacco: Never Alcohol Use Standard Drinks/Week Comments Never 0 (1 standard drink = 0.6 oz pur e alcohol) Depression Answer Date Recorded Patient Health Questionnaire-9 Score 5 08/30/2022 Depression Answer Date Recorded Patient Health Questionnaire-2 Score 1 08/30/2022 Comments Unknown Sex and Gender Information Value Date Recorded Sex Assigned at Female 05/30/2022 10:32 AM EDT Legal Sex Female 10:32 AM EDT Gender Identity Female 05/30/2022 10:32 AM EDT Sexual Orientation Straight 05/30/2022 10 :32 AM EDT COVID-19 Exposure Response Date Recorded In the last 10 days, have yo u been in contact with someone who was confirmed or suspected to have Coronavirus/COVID-19? No / Unsure 11/25/2022 10:27 AM EDT documented as of this encounter Plan of Treatment Not on file documented as of this encounter Visit Diagnoses Not on filedocumented in this encounter Additional Health Concerns Assessment Noted Time PHQ-9 Depression Total Score: 5 08/30/19 23 4:09 PM EST documented as of this encounter Care Teams Microbiological Lab Technician Relationship Specialty Start Date End Date David Bynum MD [address] [place] [id number] PCP - General Internal Medicine 09/22/17 documented as of this encounter
--- OUTSIDE RECORDS SUMMARY | 2024-09-17 15:25 | XMS_ITS | Clinical Summary ---
Author Organization [employer] [facility] Address [address] [place] [address] Care Team Providers Care Tight Rope Walker Name Role Phone David Bynum MD Primary Care Provider [phone] Medical History Medical History Date Comments Hypertension DX:Hypertension Diabetes mellitus type 2, co ntrolled, with complications (CMS/HCC) DX:Diabetes mellitus type 2, controlled, with complications (HCC) Tumor DX:Tumor Social History Tobacco Use Types Packs/Day Years Used Date Smoking Tobacco: Never Smokeless Tobacco: Never Comments Unknown Sex and Gender Information Value Date Recorded Sex Assigned at Not on file Legal Sex Female 8:25 AM EST Gender Identity Not on file Sexual Orientation Not on file Obstetrics History Last Filed Vital Signs Vital Sign Reading Time Taken Comments Blood Pressure 128/76 11/29/2021 10:11 AM EDT Si tting L Arm Pulse 66 11/29/2021 10:11 AM EDT Temperature - - Respiratory Rate - - Oxygen Saturation - - Inhaled Oxygen Concentration - - Weight 135 kg (297 lb) 12/10/2021 11:01 AM EDT Height 180.3 cm (5' 11 ) 12/10/2021 11:01 AM EDT Body Mass Index 41.42 12/10/2021 11:01 AM EDT Plan of Treatment Health Maintenance Due Date Last Done Comments Breast Cancer Screening 1982 Diabetes: Annual GFR (Glomerular Filtration Rate) 1982 Diabetes: Annual Foot Exam 01/26/1992 Diabetes: Annual Retina Eye Exam 01/26/1992 Hepatitis B Vaccines (1 of 3 - 19+ 3-dose series) 2001 Cervical Cancer Screening: Pap Smear 2003 Cholesterol Screening (Lipid Panel) 07/03/2022 Social Influencers of Health Screening 07/03/2022 COVID-19 Vaccine (1 - 2024-25 season) 2024 Influenza Vaccine (#1) 2024 0, 08/05/2019, 07/07/2017, Additional history exists Diabetes: Annual Urine Albumin-Creatinine Ratio (uACR) 09/13/2024 Hypertension/CHF/CAD Annual BMP Blood Test 09/13/2024 Diabetes: Blood Sugar Control Test (HGBA1C) 12/11/2024 06/13/2024 Depression Screening 06/13/2025 06/13/2024 DTaP,Tdap,and Td Vaccines (2 - Td or Tdap) 08/10/2027 08/10/2017 Pneumococcal Vaccine: Pediatrics (0 to 5 Years) and At-Risk Patients (6 to 64 Years) Aged Out 01/17/2018, 06/18/2010 No longer eligibl e based on patient's age to complete this topic HIV Screening Completed 11/25/2022 Hepatitis C Screening Completed 11/25/2022 HIB Vaccines Aged Out No longer eligi ble based on patient's age to complete this topic HPV Vaccines Aged Out No longer eligi ble based on patient's age to complete this topic Hepatitis A Vaccines Aged Out No long er eligible based on patient's age to complete this topic IPV Vaccines Aged Out No longer eligi ble based on patient's age to complete this topic MMR Vaccines Aged Out No longer eligi ble based on patient's age to complete this topic Meningococcal ACWY Vaccine Aged Out N o longer eligible based on patient's age to complete this topic Meningococcal B Vacine Aged Out No lo nger eligible based on patient's age to complete this topic RSV Immunization Patients Under 20 months Aged Out No longer eligible based on patient's age to complete this topic Varicella Vaccines Aged Out No longer eligible based on patient's age to complete this topic Care Teams Tight Rope Walker Relationship Specialty Start Date End Date David Bynum MD [address] [place] [address] PCP - General Internal Medicine 06/22/21
--- OUTSIDE RECORDS SUMMARY | 2024-09-17 15:25 | XMS_ITS | Encounter Summary ---
Author Organization [employer] Address [address] [place] [address] 7 [place] [address] Care Team Providers Care Supervisor Beehive Kiln Name Role Phone David Bynum MD Primary Care Provider [phone] Reason for Referral * Imaging (Routine) - Closed Specialty Diagnoses / Procedures Referred By Contac t Referred To Contact Radiology Diagnoses Intervertebral disc stenosis of neural canal of lumbar region Procedures MR Lumbar Spine w/o Contrast David Bynum MD [address] [place] [address] Phone: tel: fax: [facility] Referral ID Status Reason Start Date Expiration Date Visits Re quested Visits Authorized [id number] Closed 10/16/2023 10/15/2024 1 1 Encounter Details Date Type Department Care Team (Late st Contact Info) Description 10/16/2023 Orders Only [facility] CHC MED & PEDS [address] [place] [address] David Bynum MD [address] [place] [address] Intervertebral disc stenosis of neural canal of lumbar region (Primary Dx) Social History Tobacco Use Types Packs/Day Years Used Date Smoking Tobacco: Never Passive Smoke Exposure: Never Smokeless Tobacco: Never Alcohol Use Standard Drinks/Week Comments Never 0 (1 standard drink = 0.6 oz pur e alcohol) Depression Answer Date Recorded Patient Health Questionnaire-9 Score 5 08/30/2022 Housing Stability Answer Date Recorded What is your housing situation today? I have bucky brothers 10/19/[address] you li ve. Do you have problems with any of the following? None of the above 10/19/2023 Food Insecurity Answer Date Recorded Within the past 12 months, y ou worried that your food would run out before you got money to buy more: Never True 10/19/2023 Within the past 12 months,th e food you bought just didn't last and you didn't have enough money to get more: Never True Transportation Answer Date Recorded In the past 12 months, has l ack of transportation kept you from medical appts, meetings, work or from getting things needed for daily living? No 10/19/2023 Utilities Answer Date Recorded In the past 12 months, has t he electric, gas, oil or water company threatened to shut off services in your home? No 10/19/2023 Depression Answer Date Recorded Patient Health Questionnaire-2 Score 1 08/30/2022 Comments Unknown Sex and Gender Information Value Date Recorded Sex Assigned at Female 05/30/2022 10:32 AM EDT Legal Sex Female 10:32 AM EDT Gender Identity Female 05/30/2022 10:32 AM EDT Sexual Orientation Straight 05/30/2022 10 :32 AM EDT documented as of this encounter Plan of Treatment Not on file documented as of this encounter Procedures Procedure Name Priority Date/Time Associated Diagnosis Comments MR LUMBAR SPINE WO CONTRAST Routine 10/27/2023 Intervertebral disc stenosis of neural canal of lumbar region documented in this encounter Results * MR Lumbar Spine w/o Contrast (10/27/2023) Anatomical Region Laterality Modality Spine, L-spine Magnetic Resonan ce us David Bynum MD IMG MRI PROCEDURES Final Re sult documented in this encounter Visit Diagnoses Diagnosis Intervertebral disc stenosis of neural canal of lumbar region- Primary documented in this encounter Additional Health Concerns Assessment Noted Time PHQ-9 Depression Total Score: 5 08/30/19 23 4:09 PM EST documented as of this encounter Care Teams Supervisor Beehive Kiln Relationship Specialty Start Date End Date David Bynum MD [address] [place] [address] PCP - General Internal Medicine 09/22/17 documented as of this encounter
--- OUTSIDE RECORDS SUMMARY | 2024-09-17 15:25 | XMS_ITS | Encounter Summary ---
Author Organization [employer] Address [address] [facility] 7 [place] [address] Care Team Providers Care Waterfront Director Name Role Phone David Bynum MD Primary Care Provider [phone] Reason for Visit * Reason Onset Date Comments PT1 08/27/2024 Encounter Details Date Type Department Care Team ([facility] Contact Info) Description 08/27/2024 Telephone [facility] CHC MED & PEDS [address] [place] [address] David Bynum MD [address] [place] [address] PT1 Social History Tobacco Use Types Packs/Day Years Used Date Smoking Tobacco: Never Passive Smoke Exposure: Never Smokeless Tobacco: Never Alcohol Use Standard Drinks/Week Comments Never 0 (1 standard drink = 0.6 oz pur e alcohol) Depression Answer Date Recorded Patient Health Questionnaire-9 Score 0 06/13/2024 Patient Health Questionnaire-9 Score 0 06/13/2024 Last PHQ-9: Questionnaire Data Not on file 1 08/13/2023 Housing Stability Answer Date Recorded What is [...] Answer Date Recorded Patient Health Questionnaire-2 Score 0 06/13/2024 Comments Unknown Sex and Gender Information Value Date Recorded Sex Assigned at Female 05/30/2022 10:32 AM EDT Legal Sex Female 10:32 AM EDT Gender Identity Female 05/30/2022 10:32 AM EDT Sexual Orientation Straight 05/30/2022 10 :32 AM EDT documented as of this encounter Miscellaneous Notes * Telephone Encounter - Arlyn Doran - 08/27/2024 12:16 PM EST Patient calling requesting PT1 Home Address verified: Y/N: Yes Provider name or facility name: [facility] Facility Address: [address] [place] [address] Escort needed: Y/N: Yes Do you have a wheelchair: Y/N: No If yes- Manual or electric: Visits: 1-2 times a month for 6 months Date of appt 09/17/24 at 8 am documented in this encounter Plan of Treatment Not on file documented as of this encounter Visit Diagnoses Not on filedocumented in this encounter Additional Health Concerns Assessment Noted Time PHQ-9 Depression Total Score: 0 06/13/20 24 9:57 AM EST documented as of this encounter Care Teams Waterfront Director Relationship Specialty Start Date End Date David Bynum MD [address] [place] [address] PCP - General Internal Medicine 09/22/17 documented as of this encounter
--- OUTSIDE RECORDS SUMMARY | 2024-09-17 15:25 | XMS_ITS | Encounter Summary ---
Author Organization [employer] Address [address] [facility] 7 [place] [address] Care Team Providers Care Personalized Living Manager Name Role Phone David Bynum MD Primary Care Provider [phone] Reason for Visit * Reason Onset Date Comments Nurse Triage 12/20/2023 Encounter Details Date Type Department Care Team ([facility] st Contact Info) Description 12/20/2023 Telephone [facility] MEDICINE [address] [place] [address] David Bynum MD [address] [place] [address] Nurse Triage Social History Tobacco Use Types Packs/Day Years [...] encounter Miscellaneous Notes * Telephone Encounter - Lou Ramos RN - 12/28/2023 2:35 PM EDT Returned call to pt regarding message below. Pt did not go to ED as recommended. Pt states noticingthat symptoms appeared after taking unknown abx bought in [place]. Pt states when she stopped taking this med, symptoms resolved. Pt denies any current symptoms pt was c/o last week. Pt advised if symptoms return to go to ED. Pt agrees with plan. * Telephone Encounter - Shana Meyer LPN - 12/20/2023 11:25 AM EDT Triage call returned to patient with [place] assembly lead person [id number]. Patient reports that she has chestpain right in the middle of breasts. Worsening over last several days. Pain comes and goes and worse when swallowing even last night just her saliva. Feels like when you eat a piece of bread and it is stuck no acid reflux symptoms. No vomiting. Patient with shortness of breath like asthma that is worsened with movement. Speaking in uninterrupted sentences. Chest tightness and shortness of breath resolves with rest. No history of asthma. Feels that she has lots of gas bubbling in chest. Disposition reviewed and patient in agreement with plan. Will seek cardiac evaluation at either [facility] or [facility] ED.Reviewed with pt to contact PCP office after ER evaluation for follow up appt. Pt verbalized understanding and agrees. Team messaged with patient disposition. Protocol Used: Chest Pain (Adult) Protocol-Based Disposition: Go to ED/UCC Now (or to Office with PCP Approval) Positive Triage Question: * Chest pain or angina comes and goes and is happening more often (increasing in frequency) or getting worse (increasing in severity) (Exception: Chest pains that last only a few seconds.) * All higher-acuity triage questions were negative Care Advice Discussed: * Reasons To Call Back - Chest pain increases in frequency, duration or severity - Chest pain lasts over 5 minutes - Chest pains persist over 3 days - Difficulty breathing or unusual sweating occurs - Fever over 100.4 F (38.0 C) - You become worse * Telephone Encounter - Blane Rangel - 12/20/2023 10:38 AM EDT Symptoms: Chest Pain - Adult, Abdominal Pain - Female - Not Outcome: Transfer to a nurse or provider NOW! Reason: Trouble breathing Nigerien Speaker (Accepted assembly lead person) documented in this encounter Plan of Treatment Not on file documented as of this encounter Visit Diagnoses Not on filedocumented in this encounter Additional Health Concerns Assessment Noted Time PHQ-9 Depression Total Score: 5 08/30/19 23 4:09 PM EST documented as of this encounter Care Teams Personalized Living Manager Relationship Specialty Start Date End Date David Bynum MD [address] [place] [address] PCP - General Internal Medicine 09/22/17 documented as of this encounter
--- OUTSIDE RECORDS SUMMARY | 2024-09-17 15:25 | XMS_ITS | Encounter Summary ---
Author Organization [employer] Address [address] [place] [address] 7 [place] [address] Care Team Providers Care Relay Adjuster Name Role Phone David Bynum MD Primary Care Provider [phone] Reason for Referral * Consultation (Routine) - Authorized Specialty Diagnoses / Procedures Referred By Contac t Referred To Contact General Surgery Diagnoses Abdominal wall hematoma, initial encounter Meghann Du NP [address] [place] [address] Phone: tel: fax: Ollie Khan MD [address] [place] [address] Drive [address] [place] [address] Phone: tel: fax: Referral ID Status Reason Start Date Expiration Date Visits Requested Visits Authorized [id number] Authorized Specialty Services Required 09/02/2024 09/02/2025 12 12 Encounter Details Date Type Department Care Team (Late st Contact Info) Description 08/30/2024 Orders Only [facility] MEDICINE [address] [place] [address] Meghann Du NP [address] [place], [place] [phone] Abdominal wall hematoma, initial encounter (Primary Dx) Social History Tobacco Use Types [...] as of this encounter Plan of Treatment Scheduled Referrals Name Type Priority Associated Diagnoses Orde r Schedule Referral to General Surgery Outpatient Referral Routine Abdominal wall hematoma, initial encounter Expected: 08/30/2024 (Approximate), Expires: 08/30/2025 documented as of this encounter Visit Diagnoses Diagnosis Abdominal wall hematoma, initial encounter- Primary documented in this encounter Additional Health Concerns Assessment Noted Time PHQ-9 Depression Total Score: 0 06/13/20 24 9:57 AM EST documented as of this encounter Care Teams Relay Adjuster Relationship Specialty Start Date End Date David Bynum MD [address] [place] [address] PCP - General Internal Medicine 09/22/17 documented as of this encounter
--- OUTSIDE RECORDS SUMMARY | 2024-09-17 15:25 | XMS_ITS | Encounter Summary ---
Author Organization [employer] Address [address] [facility] 7 [place] [address] Care Team Providers Care Woodworking Machine Operator Name Role Phone David Bynum MD Primary Care Provider [phone] Reason for Visit * Reason Comments Care Coordination CHW outreach for SDO H PT-1 and food needs-referral completed Encounter Details Date Type Department Care Team (Latest Contact Info) Description 08/27/2024 Patient Outreach [facility] CHC MED & PEDS [address] [place], [place] [phone] David Bynum MD [address] [place], [place] [phone] Care Coordination (CHW outreach for SDOH PT-1 and food needs-referral completed /) Social History Tobacco Use Types Packs/Day Years [...] AM EDT documented as of this encounter Progress Notes * Thong Thomas - 08/27/2024 1:05 PM EST CHW Thong Thomas, placed outbound call to patient for assistance with SDOH as a referral was received by the provider. Patient's name and were confirmed. Patient screened positive for the following SDOH food insecurities. CHW referral patient to the local list of pantries in the area for help. PT-1 requested was send out in behalf of patient for the [facility] appt. Patient verbalizes understandin g, and able to agree with plan to follow up. Patient educated on extended clinic hours on Mondays through Wednesdays, and Walk-In Urgent Care Located in [facility]. Patient provided with after-hours line for [facility], , which offer night time triage service and option to transfer to engineer gas pumping station provider if needed. documented in this encounter Plan of Treatment Not on file documented as of this encounter Visit Diagnoses Not on filedocumented in this encounter Additional Health Concerns Assessment Noted Time PHQ-9 Depression Total Score: 0 06/13/20 24 9:57 AM EST documented as of this encounter Care Teams Woodworking Machine Operator Relationship Specialty Start Date End Date David Bynum MD [address] [place] [address] PCP - General Internal Medicine 09/22/17 documented as of this encounter
--- OUTSIDE RECORDS SUMMARY | 2024-09-17 15:25 | XMS_ITS | Encounter Summary ---
Author Organization [employer] Address [address] [place] [address] 7 [place] [address] Care Team Providers Care Global Head Advertiser Solutions Name Role Phone David Bynum MD Primary Care Provider [phone]- [phone] Reason for Referral * Imaging (Routine) - Closed Specialty Diagnoses / Procedures Referred By Contac t Referred To Contact Radiology Diagnoses Right lower quadrant abdominal mass Procedures US Abdomen Limited(Soft Tissue) Meghann Du NP [address] [place] [address] Phone: tel: fax: [facility] Referral ID Status Reason Start Date Expiration Date Visits Re quested Visits Authorized [id number] Closed 08/22/2024 08/22/2025 1 1 Encounter Details Date Type Department Care Team (Late st Contact Info) Description 08/22/2024 Orders Only [facility] MEDICINE [address] [place] [address] Meghann Du NP [address] [place], [place] [phone] Right lower quadrant abdominal mass (Primary Dx) Social History Tobacco Use Types [...] as of this encounter Miscellaneous Notes * Result Encounter Note - David Bynum MD - 08/22/2024 10:09 AM EST I reviewed the ultrasound of the abdomen which shows an hematoma. If you agree I will refill to general surgery to consider drainage. documented in this encounter Plan of Treatment Not on file documented as of this encounter Procedures Procedure Name Priority Date/Time Associated Diagnosis Comments US ABDOMEN LIMITED(SOFT TISSUE) Routine 08/29/2024 Right lower quadrant abdominal mass documented in this encounter Results * US Abdomen Limited(Soft Tissue) (08/29/2024) Anatomical Region Laterality Modality Abdomen Ultrasound us Meghann Appram DRIVER LICENSE TECHNICIAN IMG US PROCEDURES Final Result documented in this encounter Visit Diagnoses Diagnosis Right lower quadrant abdominal mass- Primary Abdominal or pelvic swelling, mass, or lump, right lower quadrant documented in this encounter Additional Health Concerns Assessment Noted Time PHQ-9 Depression Total Score: 0 06/13/20 24 9:57 AM EST documented as of this encounter Care Teams Global Head Advertiser Solutions Relationship Specialty Start Date End Date David Bynum MD [address] [place] [address] PCP - General Internal Medicine 09/22/17 documented as of this encounter
--- OUTSIDE RECORDS SUMMARY | 2024-09-17 15:25 | XMS_ITS | Encounter Summary ---
Author Organization [employer] Address [address] [place] [address] [facility] [place] [address] Care Team Providers Care Summer Nanny Name Role Phone David Bynum MD Primary Care Provider [phone]- [phone] Encounter Details Date Type Department Care Team (Late st Contact Info) Description 03/09/2023 Abstract [facility] [address] [place] [address] David Bynum MD [address] [place] [address] Social History Tobacco Use Types Packs/Day Years [...] documented as of this encounter Care Teams Summer Nanny Relationship Specialty Start Date End Date David Bynum MD [address] [place] [address] PCP - General Internal Medicine 09/22/17 documented as of this encounter
--- OUTSIDE RECORDS SUMMARY | 2024-09-17 15:25 | XMS_ITS | Encounter Summary ---
Author Organization [employer] Address 75 [facility] 7t [place] [address] Care Team Providers Care Clinical Account Specialist Name Role Phone David Bynum MD Primary Care Provider [phone]- [phone] Encounter Details Date Type Department Care Team ([facility] st Contact Info) Description 09/02/2024 Telephone [facility] MEDICINE [address] [place] [address] Jennifer Gonzalez, HÉCTOR Social History Tobacco Use Types Packs/Day Years [...] encounter Miscellaneous Notes * Telephone Encounter - Jennifer Gonzalez RN - 09/02/2024 12:03 PM EST Tc to pt via s id: [id number] [id number] to let them know per covering provider Please inform a patient ofUS results revealing hematoma at area of concern. Inform her a referral to general surgery placed for potential drainage. Thanks . Pt advised someone will contact them in regards to scheduling appointment with general surgery. Pt verbalized understanding and no further questions or concerns at thistime. * Telephone Encounter - Jennifer Gonzalez RN - 09/02/2024 12:03 PM EST ----- Message from Meghann Du sent at 08/30/2024 8:28 PM EST ----- Please inform a patient of US results revealing hematoma at area of concern. Inform her a referral to general surgery placed for potential drainage. Thanks documented in this encounter Plan of Treatment Not on file documented as of this encounter Visit Diagnoses Not on filedocumented in this encounter Additional Health Concerns Assessment Noted Time PHQ-9 Depression Total Score: 0 06/13/20 24 9:57 AM EST documented as of this encounter Care Teams Clinical Account Specialist Relationship Specialty Start Date End Date David Bynum MD [address] [place] [address] PCP - General Internal Medicine 09/22/17 documented as of this encounter
--- OUTSIDE RECORDS SUMMARY | 2024-09-17 15:25 | XMS_ITS | Encounter Summary ---
Author Organization [employer] Address [address] [place] [address] [place] [address] Care Team Providers Care Photogrammetric Technician Name Role Phone David Bynum MD Primary Care Provider [phone]- [phone] Reason for Visit * Reason Onset Date Comments Referral 04/07/2023 Encounter Details Date Type Department Care Team ([facility] st Contact Info) Description 04/07/2023 Telephone [facility] CHC MED & PEDS [address] [place] [address] David Bynum MD [address] [place] [address] Referral Social History Tobacco Use Types Packs/Day Years [...] encounter Miscellaneous Notes * Telephone Encounter - Francie Miller - 04/12/2023 1:18 PM EDT referral # faxed to [employer] * Telephone Encounter - Latoya Vuong - 04/07/2023 1:11 PM EDT Tc from pt requesting renewal of referral. Location: [address] Date: n/a Time: n/a Fax: n/a Specialty: orthopedics (knee) documented in this encounter Plan of Treatment Not on file documented as of this encounter Visit Diagnoses Not on filedocumented in this encounter Additional Health Concerns Assessment Noted Time PHQ-9 Depression Total Score: 5 08/30/19 23 4:09 PM EST documented as of this encounter Care Teams Photogrammetric Technician Relationship Specialty Start Date End Date David Bynum MD [address] [place] [address] PCP - General Internal Medicine 09/22/17 documented as of this encounter
--- OUTSIDE RECORDS SUMMARY | 2024-09-17 15:25 | XMS_ITS | Clinical Summary ---
Author Organization [employer] Address [address] [place] [address] 7 [place] [address] Care Team Providers Care Meat Counter Clerk Name Role Phone David Bynum MD Primary Care Provider Allergies Active Allergy Reactions Criticality Noted Date Comments Insulin Glargine 03/26/2022 Latex 12/13/2021 Other reaction(s): skin irritation Sulfa Antibiotics Shortness of breath High 7 Other reaction(s): airway closes , DIFF BREATHING Medications furosemide (Lasix) 20 MG tablet Take 1 tablet by mouth at bed time. 2 Active hydroCHLOROthiazid e (HYDRODiuril) 12.5 MG tablet Take 12.5 mg by mouth in the morning. Active metFORMIN (Glucophage) 1000 MG tablet Take 1,000 mg by mouth 2 times daily. Active Savella 25 MG tablet Take 25 mg by mouth 2 times daily. 2 Active predniSONE (Deltasone) 1 MG tablet 2 Active omeprazole (PriLOSEC) [address] capsule Take 1 capsule by mouth at bed time. 2 Active hydrocortisone 2.5 % creamIndications:E rythema intertrigo APPLY TO THE INGUINAL AND ABDOMINAL FOLDS TWICE DAILY FOR A WEEK 30 g 1 3 Active loratadine (Claritin) 10 MG tablet take 1 tablet by oral route every day 1 Active ibuprofen 600 MG tablet Take 1 tablet (600 mg) by mouth every 8 (eight) hours if needed for mild pain or moderate pain. 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 Remove & discard patch within 12 hours or as directed by . 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 To apply to the affected area 4 times a day 100 g 3 4 Active metoprolol succinate XL (Toprol-XL) 200 MG 24 hr tabletIndications: Primary hypertension TAKE 1 TABLET(200 MG) BY MOUTH IN THE MORNING 90 tablet 3 4 Active metFORMIN XR (Glucophage-XR) 500 MG 24 hr tablet TAKE 2 TABLETS BY MOUTH EVERY DAY WITH THE EVENING MEAL 60 tablet 11 4 Active FreeStyle lancets TEST TWICE DAILY 100 each 11 4 Active glucose blood (FREESTYLE LITE) test strip USE TO TEST BLOOD SUGAR THREE TIMES DAILY 100 strip 11 4 Active gabapentin (Neurontin) 100 MG capsuleIndications :Cervical radiculopathy TAKE 1 CAPSULE(100 MG) BY MOUTH EVERY 8 HOURS 90 capsule 4 Active Active Problems Problem Noted Date Diagnosed Date Paronychia of great toe, left 11/25/2022 Assessment & Plan (11/25/2022 10:58 AM EDT): Patient with paronychia on lateral side of L great big toe and malformation of nail bed. Will refer to Podiatry and start on Keflex ans Cleocin. Routine screening for STI (sexually transmitted infection) 11/25/2022 Dysuria 11/25/2022 Assessment & Plan (11/25/2022 10:59 AM EDT): Patient with multiple urinary symptoms. Will check UA and send out swab. Generalized obesity 04/01/2021 Diabetes mellitus without complication Multinodular goiter 09/30/2019 Sleep apnea 09/30/2019 Hypertensive disorder 07/07/2017 Obesity 07/07/2017 Pituitary adenoma 06/30/2017 Encounters Date Type Department Care Team Description 09/02/2024 Telephone [facility] [address] [place] [id number] Jennifer Gonzalez, RN 08/30/2024 Orders Only [address] [address] Meghann Du NP Abdominal wall hematoma, initial encounter (Primary Dx) 08/27/2024 Patient Outreach [facility] [address] [place] [address] David Bynum MD Care Coordination (CHW outreach for SDOH PT-1 and food needs-referral completed /) 08/27/2024 Telephone [facility] [address] [place] [address] David Bynum MD PT1 08/22/2024 Orders Only [address] [address] Meghann Du NP Right lower quadrant abdominal mass (Primary Dx) 08/16/2024 Telephone [facility] [address] [place] [address] Meghann Du NP 08/02/2024 Travel 07/29/[address] [address] David Bynum MD Nurse Triage 07/19/2024 10:40 AM EST Office Visit [facility] [address] [place] [id number] Meghann Du NP Right lower quadrant abdominal mass (Primary Dx) 07/18/[address] [address] David Bynum MD Lab Orders 07/09/2024 Refill [facility] [address] [place], [place] [phone] David Bynum MD Cervical radiculopathy 06/17/2024 10:00 AM EST Clinical Support [facility] [address] [place] [address] Zan Molina, HÉCTOR Scar of skin after cosmetic surgery 06/17/2024 Travel from Last 3 Months Immunizations Name Administration Dates Next Due Influenza injectable quadriv alent IIV4 with preservative 08/05/2019,07/07/2017 Influenza injectable quadrivalent preservative f ree 07/06/2020 Influenza, IIV3, injectable 06/18/2010 Pneumococcal Polysaccharide PPSV23 01/17/2018, Tdap 08/10/2017 Social History Tobacco Use Types Packs/Day Years Used Date Smoking Tobacco: Never Passive Smoke Exposure: Never Smokeless Tobacco: Never Tobacco Cessation:Counseling Given: Not Answered Alcohol Use Standard Drinks/Week Comments Never 0 [...] Orientation Straight 05/30/2022 10 :32 AM EDT Last Filed Vital Signs Vital Sign Reading Time Taken Comments Blood Pressure 134/85 07/19/2024 10:43 AM EST Pulse 81 07/19/2024 10:43 AM EST Temperature 36.7 ??C (98.1 ??F) 07/19/2024 10:[address] Respiratory Rate 16 07/19/2024 10:43 AM EST Oxygen Saturation 99% 07/19/2024 10:43 AM EST Inhaled Oxygen Concentration - - Weight 122 kg (270 lb) 07/19/2024 10:43 AM EST Height 177.8 cm (5' 10 ) 06/13/2024 9:25 AM EST Body Mass Index 38.74 06/13/2024 9:25 AM EST Plan of Treatment Health Maintenance Due Date Last Done Comments Eye Exam 01/26/1992 Alcohol/Substance Use Screening 1994 Family Planning (PISQ) 1997 Hepatitis B Vaccines (1 of 3 - 19+ 3-dose series) 2001 Diabetes: Urine Protein Screening 07/07/2021 07/07/2020 Lipid Panel 06/17/2022 06/17/2021, 07/07/2020 SDOH Screening 10/18/2024 10/19/2023 Diabetes: Hemoglobin A1C 12/11/2024 024, 03/11/2024, 10/27/2023, Additional history exists Influenza Vaccine (#1) 2025 , 08/05/2019, 07/07/2017, Additional history exists Postponed from 03/31/2024 (Patient Refused) Mammogram 04/20/2025 04/20/2023, 03/31, 04/08/2021, Additional history exists COVID-19 Vaccine ( season) 2025 Postponed from 03/31/2024 (Patient Refused) Depression Screening 06/13/2025 06/13/2024, 06/13/20 Diabetes: Foot Exam 06/13/2025 06/13/2024 Pneumococcal Vaccine: Pediatrics (0 to 5 Years) and At-Risk Patients (6 to 49) Years) (2 of 2 - PCV) 06/13/2025 01/17/2018, 06/18/2010 Postponed f rom 01/17/2019 (Patient Refused) Tobacco Screening 06/13/2025 06/13/2024 Cervical Cancer Screening 10/06/2025 HPV/Cotest 10/06/2025 10/06/2020, 08/15/2017 Pap Smear 10/06/2025 10/06/2020 DTaP/Tdap/Td Vaccines (2 - Td or Tdap) 08/10/2027 08/10/2017 Zoster Vaccines (1 of 2) 01/26/2032 RSV Patients and Patients Aged 60 years or older (1 - 1-dose 75+ series) 2057 HIV Screening Completed 11/25/2022, 10/06/2020 Hepatitis C Screening Completed 11/25/2022, 021 HIB Vaccines Aged Out No longer eligi [...] patient's age to complete this topic Meningococcal Vaccine Aged Out No bekah refugio eligible based on patient's age to complete this topic RSV under 20 months Aged Out No longe r eligible based on patient's age to complete this topic Rotavirus Vaccines Aged Out No longer eligible based on patient's age to complete this topic Procedures Procedure Name Priority Date/Time Associated Diagnosis Comments US ABDOMEN LIMITED(SOFT TISSUE) Routine 08/29/2024 Right lower quadrant abdominal mass POCT GLYCATED HEMOGLOBIN, TOTAL Routine 06/13/2024 11:24 AM EST Diabetes mellitus without complication (CMS/HCC) BI MAMMOGRAM SCREENING TOMOSYNTHESIS BILATERAL Routine 04/20/2023 12:52 PM EDT HEPATITIS C AB W/REFL TO HCV RNA, QN, PCR Routine 11/25/2022 4:11 PM EDT Routine screening for STI (sexually transmitted infection) HIV 1/2 ANTIGEN/ANTIBODY, FOURTH GENERATION W/RFL Routine 11/25/2022 4:11 PM EDT Routine screening for STI (sexually transmitted infection) ZZZ HISTORICAL LIPID PANEL Routine 06/17/2021 8:53 AM EST HPV MRNA E6/E7 Routine 10/06/2020 12:09 PM EST THINPREP PAP Routine 10/06/2020 12:09 PM EST ALBUMIN, RANDOM URINE W/CREATININE Routine 07/07/2020 8:56 AM EST from Last 3 Months or Most Recently Relevant to Health Maintenance Results * US Abdomen Limited(Soft Tissue) (08/29/2024) Anatomical Region Laterality Modality Abdomen Ultrasound us Meghann Du NP IMG US PROCEDURES Final Result * POCT HGB A1C (06/13/2024 11:24 AM EST) Hemoglobin A1C 5.3 4.0 - 6.0 % QC Media Lot # [id number] Lot# Expiration Date [id number] Blood 06/13/2024 11:2 4 AM EST David Bynum MD POINT OF CARE TEST ENTER/ED IT ORDERABLES Final Result * BI Mammogram Screening Tomosynthesis Bilateral (04/20/2023 12:52 PM EDT) Anatomical Region Laterality Modality Breast Bilateral Mammography 04/20/2023 12:5 2 PM EDT Narrative 05/09/2023 1:00 PM EDT ? [facility] ? [address] ?[place] [address] ? Mammography Report ? Signed ? Patient: Alton Jimenez ?MR#: ?? [id number] ? : 1980 ?Acct:[id number] ? Age/Sex: 43 / F ?ADM Date: 09/21/23 ? Loc: HO.MAMMO ? Attending Dr: David Bynum MD ? Ordering Physician: David Bynum MD ?Results: 1 ?? Negative ? Date of Service: 04/20/23 ?Follow Up: 1 Year From Orig ?? inal Mammogram ? Procedure(s): MM tomosynthesis screening BI ?? Accession Number(s): [id number] ? cc: David Bynum MD ? EXAMINATION: ?? MM SCREENING DIGITAL BREAST TOMOSYNTHESIS, BILATERAL ? CLINICAL INFORMATION: ? Screening. Asymptomatic. ? COMPARISON: ?? Mammography: This study is compared with prior exams dating back to ?? 2018. ? TECHNIQUE: ?? Digital breast tomosynthesis is performed in both the craniocaudal and ?? mediolateral oblique views along with computer-aided detection (CAD). ?? Synthesized 2D images are generated from the tomosynthesis. ? FINDINGS: ?? There are scattered areas of fibroglandular density (ACR BI-RADS breast ?? composition Category b). ? There are no significant masses, abnormal calcifications, or other ?? abnormalities. ? MM/MM tomosynthesis screening BI ?? IMPRESSION: ?? No mammographic evidence of malignancy. ? ASSESSMENT: ? BI-RADS BI-RADS 1 - Negative ? RECOMMENDATION: ?? Routine annual mammography screening. ? 1 year F/U ? This examination should not preclude the clinical evaluation of a ?? suspicious palpable abnormality. ? This patient's information was entered into a reminder system with a ?? target due date for their next mammogram. ? Dictated By: ?Angle Madrid MD ? Signed By: ?<Electronically signed by Angle Madrid MD in OV> ? 10//23 1257 ? DD/ 1252 ? TD/TT: ? Post Doctoral Researcher: ? Procedure Note Donotuseinterpreter, Image - 05/09/2023 Luis Daniel [facility] [address] [place] [address] Mammography Report Signed Patient: Ronda Jimenez#: [id number] : 1980Acct:[id number] Age/Sex: 43 / FADM Date: 04/20/23 Loc: HO.MAMMO Attending Dr: David Bynum MD Ordering Physician: David Bynum MDResults: 1 Negative Date of Service: 04/20/23Follow Up: 1 Year From Orig ina Mammogram Procedure(s): MM tomosynthesis screening BI Accession Number(s): [id number] cc: David Bynum MD EXAMINATION: MM SCREENING DIGITAL BREAST TOMOSYNTHESIS, BILATERAL CLINICAL INFORMATION: Screening. Asymptomatic. COMPARISON: Mammography: This study is compared with prior exams dating back to 2018. TECHNIQUE: Digital breast tomosynthesis is performed in both the craniocaudal and mediolateral oblique views along with computer-aided detection (CAD). Synthesized 2D images are generated from the tomosynthesis. FINDINGS: There are scattered areas of fibroglandular density (ACR BI-RADS breast composition Category b). There are no significant masses, abnormal calcifications, or other abnormalities. MM/MM tomosynthesis screening BI IMPRESSION: No mammographic evidence of malignancy. ASSESSMENT: BI-RADS BI-RADS 1 - Negative RECOMMENDATION: Routine annual mammography screening. 1 year F/U This examination should not preclude the clinical evaluation of a suspicious palpable abnormality. This patient's information was entered into a reminder system with a target due date for their next mammogram. Dictated By: Angle Madrid MD Signed By: <Electronically signed by Angle Madrid MD in OV> 05/09/23 1257 DD/ 1252 TD/TT: Post Doctoral Researcher: us David Bynum MD IMG BI PROCEDURES Final Res ult * Hepatitis C Antibody with Reflex to HCV, RNA, Quantitative, Real-Time PCR (11/25/2022 4:11 PM EDT) Hepatitis C Antibody NON-REACT DEDE NON-REACT DEDE [facility] [place] [facility] Index 0.06 <1.00 [facility] [place] [facility] Comment: HCV antibody was non-reactive. There is no laboratory evidence of HCV infection. In most cases, no further action is required. However, if recent HCV exposure is suspected, a test for HCV RNA (test code 86121) is suggested. For additional information please refer to http://education.Tech.eu/faq/MZH31r3 (This link is being provided for informational/ educational purposes only.) Blood Venous blood specimen / Unknown 11/25/2022 4:11 PM EDT 11/25/2022 4:11 PM EDT Narrative [facility] - 11/28/2022 7:24 PM EDT FASTING:NO FASTING: NO us Ashlie Pang MD LAB BLOOD ORDERABLES Final Re sult [facility] [address], [place] [address] [facility] [place] [employer] [address] [place] [address] * HIV-1/2 Antigen and Antibodies, Fourth Generation, with Reflexes (11/25/2022 4:11 PM EDT) HIV Antigen/Antibody, 4th Generation NON-REAC TIVE NON-REAC TIVE [facility] [place] [facility] Comment: HIV-1 antigen and HIV-1/HIV-2 antibodies were not detected. There is no laboratory evidence of HIV infection. PLEASE NOTE: This information has been disclosed to you from records whose confidentiality may be protected by state law. ??If your state requires such protection, then the state law prohibits you from making any further disclosure of the information without the specific written consent of the person to whom it pertains, or as otherwise permitted by law. A general authorization for the release of medical or other information is NOT sufficient for this purpose. ?? For additional information please refer to http://education.MedVentive.Valneva/faq/KIH967 (This link is being provided for informational/ educational purposes only.) The performance of this assay has not been clinically validated in patients less than 2 years old. Blood Venous blood specimen / Unknown 11/25/2022 4:11 PM EDT 11/25/2022 4:11 PM EDT Narrative [facility] - 11/28/2022 7:24 PM EDT FASTING:NO FASTING: NO us Ashlie Pang MD LAB BLOOD ORDERABLES Final Re sult [facility] [address], [place] [address] [facility] [address] [place] [address] * (ABNORMAL) LIPID PANEL (06/17/2021 8:53 AM EST) Cholesterol 188 mg/dL [facility] Comment: Desirable Cholesterol: ?less than 200 mg/dL Borderline High Cholesterol: ??200-239 mg/dL High Cholesterol: ? greater than 239 mg/dL HDL Cholesterol 62 mg/dL [facility] Comment: Desirable HDL: ??greater than 40 mg/dL ?? Note: This HDL assay may give artificially ? low results in patients with liver disease. LDL Cholesterol Calculated 112 mg/dl [facility] Comment: Desirable LDL: ? less than 100 mg/dL Near Optimal/Above Optimal LDL: ??110-129 mg/dL Borderline High LDL: ? 130-159 mg/dL High LDL: ?160-189 mg/dL Very High LDL: ? greater than or equal to ?190 mg/dL Triglycerides 70 mg/dL [facility] Comment: Desirable Triglyceride: ? less than 150 mg/dL Borderline High Triglyceride ??150-199 mg/dL High Triglyceride: ?200-499 mg/dL Very High Triglyceride: ? greater than or equal to ? 5OO mg/dL Alanine Aminotransferase 48(H) 0 - 31 U/L [facility] Albumin Level 4.5 3.5 - 5.0 g/dL [facility] Alkaline Phosphatase 73 39 - 117 U/L [facility] Anion Gap 11(L) 12 - 20 [facility] Aspartate Amino Transferase 35(H) 5 - 31 U/L [facility] Bilirubin Total 0.8 0.0 - 1.0 mg/dL [facility] Blood Urea Nitrogen 13 9 - 16 mg/dL [facility] Calcium 9.5 8.4 - 10.2 mg/dL [facility] Carbon Dioxide 29 22 - 29 mmol/L [facility] Chloride 102 96 - 108 mmol/L [facility] Creatinine, Serum 0.71 0.5 - 1.4 mg/dL [facility] Estimated Glomerular Filt Rate >60 [facility] Comment: NOTE: ??For -Honduran individuals, multiply the result ?by 1.210. ?? Chronic Kidney Disease: ??Estimated GFR < 60 mL/min/1.73m2 Severe Kidney Disease: ??Estimated GFR < 15 mL/min/1.73m2 Glucose Random 91 60 - 115 mg/dL [facility] Potassium 4.3 3.3 - 5.1 mmol/L [facility] Sodium 138 135 - 145 mmol/L [facility] Total Protein 7.6 6.5 - 8.0 g/dL [facility] Iron 90 30 - 160 mcg/dL [facility] Percent Iron Saturation 25 15 - 50 % [facility] Total Iron Binding Capacity 361 228 - 428 mcg/dL [facility] Unsaturated Iron Binding 271 ug/dL [facility] C Reactive Protein 0.49 < or = 0.50 mg/dL [facility] Vitamin D 25-OH Total 13.6 >30 ng/mL [facility] Comment: Health Based Reference Values* ?? < 20 ??ng/mL ??Deficient 20-30 ng/mL ??Insufficient > 30 ??ng/mL ??Sufficient ?? *Hang PANDYA. N Engl J Med. 2007;357:266-280 ?? Care must be taken in interpreting Vitamin D results from different laboratories and methodologies. ??Published data demonstrated that results from patients undergoing hemodialysis may show a negative bias when tested with various automated 25-OH vitamin D assays when compared to LC-MS/MS. ?? When testing samples from patients whose predominant form of Vitamin D is Vitamin D2, such as patients receiving Vitamin D2 supplementation, results that are subtherapeutic should be confirmed with another method such as LC-MS/MS. TSH reflex Free T4 0.91 0.32 - 4.0 uIU/mL [facility] Insulin 46(H) 2 - 29 uU/mL [facility] Comment: ??This test was performed using the Tee chemiluminescent method. ?? Values obtained from different assay methods cannot be used interchangeably. ??This insulin assay shows a possible cross-reactivity with antibodies generated against insulin (immunoreactive insulin and some patients treated with bovine or porcine insulin). ??Insulin levels may be measured lower in patients with insulin autoimmune syndrome or familial high pro-insulinemia. 06/17/2021 8:53 AM EST us Historical Provider HISTORICAL/NON ORDERABLE LABS Final Result [facility] [address] * THINPREP PAP (10/06/2020 12:09 PM EST) Clinical Information: None given [facility] COMMENT SEE COMMENT [facility] Comment: EXPLANATORY NOTE: ? The Pap is a screening test for cervical cancer. It is ?? not a diagnostic test and is subject to false negative ?? and false positive results. It is most reliable when a ?? satisfactory sample, regularly obtained, is submitted ?? with relevant clinical findings and history, and when ?? the Pap result is evaluated along with historic and ?? current clinical information. ?? Fast Food Services Manager : SEE COMMENT [facility] Comment: RK, CT(ASCP) CT screening location: [address] ??[address] Interpretation/R esult: Negative for intraepithelial lesion or malignancy. [facility] LMP: NONE GIVEN [facility] Prev. BX: NONE GIVEN [facility] Prev. PAP: NONE GIVEN [facility] SOURCE: None given [facility] Statement Of Adequacy: SEE COMMENT [facility] Comment: Satisfactory for evaluation. Endocervical/transformation zone component absent. Age and/or menstrual status not provided 10/06/2020 12:0 9 PM EST Elana DE DIOS LAB PATHOLOGY ORDERABLES Final Result Performing Organization Address [facility] [address]/[facility] de Phone Number [facility] [address] * HPV mRNA E6/E7 (10/06/2020 12:09 PM EST) HPV nRNA E6/E7 Not Detected Not Detected [facility] Comment: Methodology: Information Services Consultant-Mediated Amplification This assay detects E6/E7 viral messenger RNA (mRNA) from 14 high-risk HPV types (16,18,31,33,35,39,45,51,52,56,58,59,66,68). ? The analytical performance characteristics of this assay have been determined by [facility]. The modifications have not been cleared or approved by the FDA. This assay has been validated pursuant to the CLIA regulations and is used for clinical purposes. ?? For additional information, please refer to http://education.Tech.eu/faq/DCH937c9 (This link if provided for information/ educational purposes only.) 10/06/2020 12:0 9 PM EST Elana DE DIOS LAB BLOOD ORDERABLES Karine l Result Performing Organization Address [facility] [address]/ZIP Co de Phone Number [facility] [address] * ALBUMIN, RANDOM URINE W/CREATININE (07/07/2020 8:56 AM EST) Microalbumin Urine 2.8 See Note: mg/dL [facility] Comment: Reference Range: ?? Reference Range Not established Microalb/Creat Ratio 15 <30 mcg/mg creat [facility] Comment: ?? The ADA defines abnormalities in albumin excretion as follows: ?? Category ? Result (mcg/mg creatinine) ?? Normal ?<30 Microalbuminuria ? 30-299 ?? Clinical albuminuria ?? > OR = 300 ?? The ADA recommends that at least two of three specimens collected within a 3-6 month period be abnormal before considering a patient to be within a diagnostic category. Creatinine, Urine 193 20 - 275 mg/dL [facility] 07/07/2020 8:56 AM EST us David Bynum MD LAB URINE ORDERABLES Final Result Performing Organization Address [facility] de Phone Number [facility] [address] from Last 3 Months or Most Recently Relevant to Health Maintenance Insurance [facility] C3 Care Teams Meat Counter Clerk Relationship Specialty Start Date End Date David Bynum MD [address] [place] [id number] PCP - General Internal Medicine 09/22/17
== END 2024-09-17 15:15 | disposition home or self-care (01) ==
PROVIDERS: PCP Internal Medicine; Referring Provider Nurse Practitioner; Visit Provider Surgery
DX: L76.34 Postprocedural seroma of skin and subcutaneous tissue following other procedure (principal)
CPT/HCPCS: 10160; 99204

== ENCOUNTER → 2024-09-17 14:23 | Outpatient (BNVA) | payer MEDICAID, SELFPAY | PROVIDERS: PCP Internal Medicine; Referring Provider Nurse Practitioner; Visit Provider Surgery | DX: S30.1XXA Contusion of abdominal wall, initial encounter (principal); X58.XXXA Exposure to other specified factors, initial encounter; Y93.9 Activity, unspecified; Y92.9 Unspecified place or not applicable; Y99.9 Unspecified external cause status | CPT/HCPCS: 10160; 99202 ==

== ENCOUNTER 2025-03-27 09:06 | Outpatient (REF) | payer MEDICAID, SELFPAY ==
--- OUTSIDE RECORDS SUMMARY | 2025-03-26 15:15 | XMS_ITS | Encounter Summary ---
Author Organization [employer] Address [address] [place] [address] Care Team Providers Care Erector Operator Name Role Phone David Bynum MD Primary Care Provider [phone] Reason for Referral * Imaging (Routine) - Authorized Specialty Diagnoses / Procedures Referred By Tanvir dick Referred To Contact Radiology Diagnoses Other dysphagia Hoarseness Procedures US Thyroid David Bynum MD [address] [place] [address] Phone: tel: fax: [facility] Referral ID Status Reason Start Date Expiration Date V isits Requested Visits Authorized [id number] Authorized 03/27/2025 03/27/2026 1 1 * Consultation (Routine) - Pending Review Specialty Diagnoses / Procedures Referred By Tanvir dick Referred To Contact Otolaryngology Diagnoses Other dysphagia Hoarseness David Bynum MD [address] [place] [address] Phone: tel: fax: Referral ID Status Reason Start Date Expiration Date Visits Requested Visits Authorized [id number] Pending Review Specialty Services Required 03/26/2025 03/26/2026 1 1 * Imaging (Routine) - Authorized Specialty Diagnoses / Procedures Referred By Tanvir dick Referred To Contact Radiology Diagnoses Other dysphagia Procedures FL Esophagus Barium Swallow David Bynum MD [address] [place] [address] Phone: tel: fax: [facility] Referral ID Status Reason Start Date Expiration Date Visits Requested Visits Authorized [id number] Authorized Perform Procedure 03/26/2025 03/26/2026 1 1 Encounter Details Date Type Department Care Team ([facility] st Contact Info) Description 03/26/2025 3:15 PM EDT Office Visit [facility] MED & PEDS [address] [place] [address] David Bynum MD [address] [place] [address] Other dysphagia (Primary Dx); Hoarseness; Controlled type 2 diabetes mellitus without complication, without long-term current use of insulin ([facility]); Routine screening for STI (sexually transmitted infection); Epistaxis; Multinodular goiter Social History Tobacco Use Types Packs/Day Years [...] housing situation today? I have bucky brothers 03/26/[address] you li ve. Do you have problems with any of the following? None of the above 03/26/2025 Food Insecurity Answer Date Recorded Within the past 12 months, y ou worried that your food would run out before you got money to buy more: Never True 03/26/2025 Within the past 12 months,th e food you bought just didn't last and you didn't have enough money to get more: Never True Transportation Answer Date Recorded In the past 12 months, has l ack of transportation kept you from medical appts, meetings, work or from getting things needed for daily living? No 03/26/2025 Utilities Answer Date Recorded In the past 12 months, has t he electric, gas, oil or water company threatened to shut off services in your home? No 03/26/2025 Depression Answer Date Recorded Patient Health Questionnaire-2 Score 0 06/13/2024 Internet Access Answer Date Recorded Internet Access Q1 Yes 03/26/2025 Internet Access Q2 Not on file 03/26/2025 Comments Unknown Sex and Gender Information Value Date Recorded Sex Assigned at Female 05/30/2022 10:32 AM EDT Legal Sex Female 10:32 AM EDT Gender Identity Female 05/30/2022 10:32 AM EDT Sexual Orientation Straight 05/30/2022 10 :32 AM EDT documented as of this encounter Last Filed Vital Signs Vital Sign Reading Time Taken Comments Blood Pressure 141/86 03/26/2025 4:10 PM EDT Pulse 80 03/26/2025 4:10 PM EDT Temperature 36.9 C (98.5 F) 03/26/2025 4:10 PM EDT Respiratory Rate 20 03/26/2025 4:10 PM EDT Oxygen Saturation - - Inhaled Oxygen Concentration - - Weight 123 kg (272 lb) 03/26/2025 4:10 PM EDT Height - - Body Mass Index 39.03 01/14/2025 3:40 PM EDT documented in this encounter Progress Notes * David Bynum MD - 03/26/2025 3:15 PM EDT SUBJECTIVE Alton Marlow is a 45 y.o. female who presents for No chief complaint on file.. HPI 1) Pt is very concerned about a finding of thyroid nodules and is c/o difficulty swallowing she feels is getting worse in the last few weeks. Has h/o pituitary adenoma and hypopituitarism, follow up / [facility] in [facility]. Ms Alton Marlow Was contacted on 02/21/25 to arrange a refill of her Genotropin and has not returned any of the calls. An ultrasound of the thyroid was performed and shows on the right lobe a complex, heterogenous vascular nodule in the midpole measuring 1.6 x 1.5 x 1.9 cm (TI-RADS 8= biopsy recommended) and a 1.0 x 1.4 x 1.3 complex but more solid vascular nodule with a small calcification inferiorly (TI-RADS 3 = follow-up recommended) on the left load: Stable heterogeneous nodule measuring 1.5 x 1.5 x 2.5 cm previously biopsied and proven to be benign follicular nodule. Order placed [place] [facility] [place] Michelet Poe. No reported follow up since then. 2) pt is concerned about having an STI. Asymptomatic but has had sexual encounters with male sexualpartners most recently. She would not provide further details. Problem List[1] Allergies[2] Medications Ordered Prior to Encounter[3] Review of Systems Constitutional: Negative for appetite change, chills and diaphoresis. Respiratory: Negative for cough, choking and shortness of breath. Gastrointestinal: Difficulty swallowing. Musculoskeletal: Positive for arthralgias. Negative for back pain, gait problem and joint swelling. OBJECTIVE Vitals: 03/26/25 1610 BP: (!) 141/86 BP Location: Left arm Patient Position: Sitting BP Cuff Size: Adult Pulse: 80 Resp: 20 Temp: 98.5 ??F (36.9 ??C) TempSrc: Oral Weight: 272 lb (123 kg) Physical Exam Constitutional: General: She is not in acute distress. Appearance: Normal appearance. She is obese. She is not ill-appearing, toxic- appearing or diaphoretic. Cardiovascular: Rate and Rhythm: Normal rate. Pulmonary: Effort: Pulmonary effort is normal. Neurological: Mental Status: She is alert. Assessment/Plan Assessment/Plan Diagnoses and all orders for this visit: Other dysphagia - FL Esophagus Barium Swallow; Future - Referral to ENT; Future - US Thyroid; Future Hoarseness - Referral to ENT; Future - US Thyroid; Future Controlled type 2 diabetes mellitus without complication, without long-term current use of insulin ([facility]) Comments: stable No intervention Low carb diet Orders: - POCT Glucose Routine screening for STI (sexually transmitted infection) Comments: safe sexual practices. Orders: - Chlamydia/N. Gonorrhoeae RNA, TMA, Urogenitial - HIV-1/2 Antigen and Antibodies, Fourth Generation, with Reflexes; Future - Hepatitis C Antibody with Reflex to HCV, RNA, Quantitative, Real-Time PCR; Future - RPR (Monitor) with Reflex to Titer; Future - Urinalysis w/reflex microscopic; Future - Trichomonas vaginalis RNA, Qualitative, TMA, Males; Future - Chlamydia/N. Gonorrhoeae, PCR, Urine Epistaxis Comments: resolved. Orders: - CBC auto differential; Future Multinodular goiter Comments: Repeat US. Further management after. [1] Patient Active Problem List Diagnosis Generalized obesity Hypertensive disorder Multinodular goiter Obesity Pituitary adenoma (CMS/HCC) Sleep apnea Diabetes mellitus without complication (CMS/HCC) Paronychia of great toe, left Routine screening for STI (sexually transmitted infection) Dysuria Epistaxis Strep pharyngitis Diarrhea Snoring [2] Allergies Allergen Reactions Sulfa Antibiotics Shortness of breath Other reaction(s): airway closes , DIFF BREATHING Insulin Glargine Latex Other reaction(s): skin irritation [3] Current Outpatient Medications on File Prior to Visit Medication Sig Dispense Refill acetaminophen (Mapap Arthritis Pain) 650 MG ER tablet Take 1 tablet (650 mg) by mouth every 8 (eight) hours if needed for mild pain. Do not crush, chew, or split.TAKE 1 TABLET BY MOUTH EVERY 8 HOURS NEEDED FOR PAIN OR FEVER 60 tablet 0 Diclofenac Sodium 1 % gel To apply to the affected area 4 times a day 100 g 3 ferrous sulfate (Fe Tabs) 325 (65 Fe) MG EC tablet Take 1 tablet (325 mg) by mouth with breakfast. Do not crush, chew, or split. 30 tablet 11 FreeStyle lancets 1 each by Other route 2 times daily. 100 each 11 furosemide (Lasix) 20 MG tablet Take 1 tablet by mouth at bed time. gabapentin (Neurontin) 100 MG capsule TAKE 1 CAPSULE(100 MG) BY MOUTH EVERY 8 HOURS 90 capsule 0 glucose blood (FREESTYLE LITE) test strip USE TO TEST BLOOD SUGAR THREE TIMES DAILY 100 strip 11 hydroCHLOROthiazide (HYDRODiuril) 12.5 MG tablet Take 12.5 mg by mouth in the morning. hydrocortisone 2.5 % cream APPLY TO THE INGUINAL AND ABDOMINAL FOLDS TWICE DAILY FOR A WEEK 30 g 1 ibuprofen 600 MG tablet Take 1 tablet (600 mg) by mouth every 8 (eight) hours if needed for mild pain or moderate pain. 90 tablet 1 lidocaine (Lidoderm) 5 % patch Apply 1 patch topically in the morning. Remove & discard patch within 12 hours or as directed by MD. 30 patch 3 loratadine (Claritin) 10 MG tablet take 1 tablet by oral route every day metFORMIN (Glucophage) 1000 MG tablet Take 1,000 mg by mouth 2 times daily. metFORMIN XR (Glucophage-XR) 500 MG 24 hr tablet TAKE 2 TABLETS BY MOUTH EVERY DAY WITH THE EVENINGMEAL 60 tablet 11 metoprolol succinate XL (Toprol-XL) 200 MG 24 hr tablet TAKE 1 TABLET(200 MG) BY MOUTH IN THE MORNING 90 tablet 3 omeprazole (PriLOSEC) [address] capsule Take 1 capsule by mouth at bed time. predniSONE (Deltasone) 1 MG tablet Savella 25 MG tablet Take 25 mg by mouth 2 times daily. sodium chloride ([place] Nasal [place]) 0.65 % nasal spray Administer 1 spray into each nostril if needed for congestion. 30 mL 12 No current facility-administered medications on file prior to visit. documented in this encounter Plan of Treatment Scheduled Orders Name Type Priority Associated Diagnoses Orde r Schedule FL Esophagus Barium Swallow Imaging Routine Other dysphagia Expected: 03/26/2025, Expires: 03/26/2026 Chlamydia/N. Gonorrhoeae RNA, TMA, Urogenitial Microbiology Routine Routine screening for STI (sexually transmitted infection) Ordered: 03/26/2025 HIV-1/2 Antigen and Antibodies, Fourth Generation, with Reflexes Lab Routine Routine screening for STI (sexually transmitted infection) Expected: 03/26/2025 (Approximate), Expires: 03/26/2026 Hepatitis C Antibody with Reflex to HCV, RNA, Quantitative, Real-Time PCR Lab Routine Routine screening for STI (sexually transmitted infection) Expected: 03/26/2025, Expires: 03/26/2026 RPR (Monitor) with Reflex to Titer Lab Routine Routine screening for STI (sexually transmitted infection) Expected: 03/26/2025, Expires: 03/26/2026 Urinalysis w/reflex microscopic Lab Routine Routine screening for STI (sexually transmitted infection) Expected: 03/26/2025, Expires: 03/26/2026 Trichomonas vaginalis RNA, Qualitative, TMA, Males Lab Routine Routine screening for STI (sexually transmitted infection) Expected: 03/26/2025, Expires: 03/26/2026 CBC auto differential Lab Routine Epistaxis Expected: 03/26/2025 (Approximate), Expires: 03/26/2026 Chlamydia/N. Gonorrhoeae, PCR, Urine Lab Routine Routine screening for STI (sexually transmitted infection) Ordered: 03/26/2025 US Thyroid Imaging Routine Other dysphagia Hoarseness Expected: 03/27/2025, Expires: 03/27/2026 Scheduled Referrals Name Type Priority Associated Diagnoses Orde r Schedule Referral to ENT Outpatient Referral Routine Other dysphagia Hoarseness Expected: 03/26/2025 (Approximate), Expires: 03/26/2026 documented as of this encounter Procedures Procedure Name Priority Date/Time Associated Diagnosis Comments POCT GLUCOSE Routine 03/26/2025 4:14 PM EDT Controlled type 2 diabetes mellitus without complication, without long-term current use of insulin ([facility]) documented in this encounter Results * POCT Glucose (03/26/2025 4:14 PM EDT) Glucose Blood, POC 140 60 - 200 mg/dL QC Media Lot # [id number] Lot# Expiration Date 122 Blood Capillary blood specimen / Unknown 03/26/2025 4:14 PM EDT David Bynum MD POINT OF CARE TEST ENTER/ED IT ORDERABLES Final Result documented in this encounter Visit Diagnoses Diagnosis Other dysphagia- Primary Hoarseness Dysphonia Controlled type 2 diabetes mellitus without complication, without long-term current use of insulin ([facility]) Routine screening for STI (sexually transmitted infection) Screening examination for venereal disease Epistaxis Multinodular goiter Nontoxic multinodular goiter documented in this encounter Additional Health Concerns Assessment Noted Time PHQ-9 Depression Total Score: 0 06/13/20 24 9:57 AM EST documented as of this encounter Care Teams Erector Operator Relationship Specialty Start Date End Date David Bynum MD [address] [place] [address] PCP - General Internal Medicine 09/22/17 documented as of this encounter
--- OUTSIDE RECORDS SUMMARY | 2025-03-27 10:04 | XMS_ITS | Clinical Summary ---
Author Organization [facility] [facility] Address [address] [place] [address] Care Team Providers Care Laboratory Technologist Name Role Phone David Bynum MD Primary Care Provider [phone] Medical History Medical History Date Comments Hypertension DX:Hypertension Diabetes mellitus type 2, co ntrolled, with complications (CMS/HCC V24, CMS/HCC V28) DX:Diabetes mellitus type 2, controlled, with complications [...] Influencers of Health Screening 07/03/2022 COVID-19 Vaccine ( season) 2024 Depression Screening 07/31/2024 Diabetes: Annual Urine Albumin-Creatinine Ratio (uACR) 09/13/2024 Hypertension/CHF/CAD Annual BMP Blood Test 09/13/2024 Diabetes: Blood Sugar Control Test (HGBA1C) 12/11/2024 06/13/2024 Influenza Vaccine (#1) 2025 , 08/05/2019, 07/07/2017, Additional history exists DTaP,Tdap,and Td Vaccines (2 - Td or Tdap) 08/10/2027 08/10/2017 Pneumococcal Vaccine: Pediatrics (0 to 5 Years) and At-Risk Patients (6 to 49 Years) Aged Out 01/17/2018, 06/18/2010 No longer [...] age to complete this topic Meningococcal B Vaccine Aged Out No l onger eligible based on patient's age to complete this topic RSV Immunization Patients Under 20 months Aged Out No longer eligible based on patient's age to complete this topic Varicella Vaccines Aged Out No longer eligible based on patient's age to complete this topic Care Teams Laboratory Technologist Relationship Specialty Start Date End Date David Bynum MD [address] [place] [address] PCP - General Internal Medicine 06/22/21
--- OUTSIDE RECORDS SUMMARY | 2025-03-27 10:04 | XMS_ITS | Encounter Summary ---
Author Organization [facility] Address [address] [facility] [address] [place] [address] Phone Care Team Providers Care National Sales Director Name Role Phone David Bynum MD Primary Care Pr ovider Hero Baltazar MD Unavailable [phone] Encounter Details Date Type Department Care Team (Late st Contact Info) Description 11/19/2018 Procedure Pass [facility] Imaging [address] [place] [address] Social History Tobacco Use Types Packs/Day Years Used Date Smoking Tobacco: Never Assessed Comments Unknown Sex and Gender Information Value Date Recorded Sex Assigned at Female 09/29/2020 7:00 AM EST Legal Sex Female 11:57 AM EDT Gender Identity Female 09/29/2020 7:00 AM EST Sexual Orientation Straight 09/29/2020 7: 00 AM EST documented as of this encounter Plan of Treatment Upcoming Encounters Date Type Department Care Team (Late st Contact Info) Description 07/14/2025 1:30 PM EST Office Visit [facility] [place] [place] [facility] [address] [place] [address], [address] [address] Corby Sanchez MD [address] [place] [phone] [email or web address] documented as of this encounter Visit Diagnoses Not on filedocumented in this encounter Care Teams National Sales Director Relationship Specialty Start Date End Date BeDavid jones MD [address] [address] PCP - General Internal Medicine 05/23/18 Hero Baltazar MD [address] [place] [address] [email or web address] Radiation Oncology 11/28/18 documented as of this encounter Additional Source Comments The information contained in this document represents components of the legal health record. It is not the complete legal health record.[facility]
--- OUTSIDE RECORDS SUMMARY | 2025-03-27 10:04 | XMS_ITS | Encounter Summary ---
Author Organization [facility] Address [address] [place] [address] Phone Care Team Providers Care Puppet Developer Name Role Phone David Bynum MD Primary Care Pr ovider Hero Baltazar MD Unavailable [phone] Encounter Details Date Type Department Care Team (Late st Contact Info) Description 02/06/2019 Procedure Pass MRI, [facility] - [place] [address] [place] [address] Social History Tobacco Use Types Packs/Day Years [...] Description 07/14/2025 1:30 PM EST Office Visit [address], [address] [place] [address] Corby Sanchez MD [address] [place] [address], [address] [place] [address] [email or web address] documented as of this encounter Visit Diagnoses Not on filedocumented in this encounter Care Teams Puppet Developer Relationship Specialty Start Date End Date David Bynum MD [address] [address] PCP - General Internal Medicine 05/23/18 Hero Baltazar MD [address] [place] [address] [email or web address] Radiation Oncology 11/28/18 documented as of this encounter Additional Source Comments The information contained in this document represents components of the legal health record. It is not the complete legal health record.[facility]
--- OUTSIDE RECORDS SUMMARY | 2025-03-27 10:04 | XMS_ITS | Encounter Summary ---
Author Organization [facility] Address [address] [facility] [address] [place] [address] Phone Care Team Providers Care Rail Car Repair Carman Name Role Phone David Bynum MD Primary Care Pr ovider Hero Baltazar MD Unavailable [phone] Encounter Details Date Type Department Care Team (Late st Contact Info) Description 11/19/2018 Procedure Pass [facility] Imaging [address] [place] [address] Social History Tobacco Use Types Packs/Day Years [...] Description 07/14/2025 1:30 PM EST Office Visit [facility] [address] [place] [address], [address] [address] Corby Sanchez MD [address] [place] [phone] [email or web address] documented as of this encounter Visit Diagnoses Not on filedocumented in this encounter Care Teams Rail Car Repair Carman Relationship Specialty Start Date End Date BeDavid jones MD [address] [address] PCP - General Internal Medicine 05/23/18 Hero Baltazar MD [address] [place] [address] [email or web address] Radiation Oncology 11/28/18 documented as of this encounter Additional Source Comments The information contained in this document represents components of the legal health record. It is not the complete legal health record.[facility]
--- OUTSIDE RECORDS SUMMARY | 2025-03-27 10:04 | XMS_ITS | Encounter Summary ---
Author Organization [employer] Address [address] [address] Care Team Providers Care Government Affairs Fellow Name Role Phone David Bynum MD Primary Care Provider [phone] Reason for Visit * Reason Onset Date Comments chart prep 03/25/2025 Encounter Details Date Type Department Care Team ([facility] Contact Info) Description 03/25/2025 Telephone [facility] CHC MED & PEDS [address] [place] [address] David Bynum MD [address] [place] [address] chart prep Social History Tobacco Use Types Packs/Day Years [...] is your housing situation today? I have buckyelsi brothers 03/26/[address] you [...] Telephone Encounter - Lou Ramos RN - 03/25/2025 2:05 PM EDT Chart Prep Labs: not done Images: done Referrals: Pt called multiple times with no return call (sleep study) Vaccines due: Hep B Screenings: LMP Overdue care gaps: SDOH and Disability screen documented in this encounter Plan of Treatment Not on file documented as of this encounter Visit Diagnoses Not on filedocumented in this encounter Additional Health Concerns Assessment Noted Time PHQ-9 Depression Total Score: 0 06/13/20 24 9:57 AM EST documented as of this encounter Care Teams Government Affairs Fellow Relationship Specialty Start Date End Date David Bynum MD [address] [place] [address] PCP - General Internal Medicine 09/22/17 documented as of this encounter
--- OUTSIDE RECORDS SUMMARY | 2025-03-27 10:04 | XMS_ITS | Encounter Summary ---
Author Organization [facility] Address [address] [facility] 7 [place] [address] Care Team Providers Care Verification Clerk Name Role Phone David Bynum MD Primary Care Provider [phone] Encounter Details Date Type Department Care Team ([facility] st Contact Info) Description 01/10/2025 Orders Only [facility] CHC MED & PEDS [address] [place], [place] [phone] David Bynum MD [address] [place] [address] Diarrhea, unspecified type (Primary Dx); Normocytic anemia Social History Tobacco Use Types Packs/Day Years [...] your housing situation today? I have bucky deneen 10/19/[address] you li [...] Procedure Name Priority Date/Time Associated Diagnosis Comments CBC WITH AUTO DIFFERENTIAL Routine 01/14/2025 Diarrhea, unspecified type documented in this encounter Results * CBC auto differential (01/14/2025) Blood Venous blood specimen / Unknown us David Bynum MD LAB BLOOD ORDERABLES Final Result [facility] [address] [place] [address] [phone] documented in this encounter Visit Diagnoses Diagnosis Diarrhea, unspecified type- Primary Normocytic anemia Unspecified anemia documented in this encounter Additional Health Concerns Assessment Noted Time PHQ-9 Depression Total Score: 0 06/13/20 24 9:57 AM EST documented as of this encounter Care Teams Verification Clerk Relationship Specialty Start Date End Date David Bynum MD [address] [place] [address] PCP - General Internal Medicine 09/22/17 documented as of this encounter
--- OUTSIDE RECORDS SUMMARY | 2025-03-27 10:04 | XMS_ITS | Encounter Summary ---
Author Organization [facility] Address [address] [facility] [address] [place] [address] Phone Care Team Providers Care Institutional Aide Name Role Phone David Bynum MD Primary Care Pr ovider Hreo Baltazar MD Unavailable [phone] Encounter Details Date Type Department Care Team (Late st Contact Info) Description 11/19/2018 Procedure Pass [facility] Imaging [address] [place] [address] Social History Tobacco Use Types Packs/Day Years [...] Description 07/14/2025 1:30 PM EST Office [place] [facility] [address] [place] [address], [address] [address] Corby Sanchez MD [address] [place] [phone] [email or web address] documented as of this encounter Visit Diagnoses Not on filedocumented in this encounter Care Teams Institutional Aide Relationship Specialty Start Date End Date BeDavid jones MD [address] [address] PCP - General Internal Medicine 05/23/18 Hero Baltazar MD [address] [place] [address] [email or web address] Radiation Oncology 11/28/18 documented as of this encounter Additional Source Comments The information contained in this document represents components of the legal health record. It is not the complete legal health record.[facility]
--- OUTSIDE RECORDS SUMMARY | 2025-03-27 10:04 | XMS_ITS | Encounter Summary ---
Author Organization [facility] Address [address] [facility] [address] [place] [address] Phone Care Team Providers Care Casting Coordinator Name Role Phone David Bynum MD Primary Care Pr ovider Hero Baltazar MD Unavailable [phone] Encounter Details Date Type Department Care Team (Late st Contact Info) Description 06/04/2018 Procedure Pass [facility] [address] [place] [address] Social History Tobacco Use Types Packs/Day Years [...] Description 07/14/2025 1:30 PM EST Office Visit [facility] [address] [place] [address], [address] [address] Corby Sanchez MD [address] [place] [phone] [email or web address] documented as of this encounter Visit Diagnoses Not on filedocumented in this encounter Care Teams Casting Coordinator Relationship Specialty Start Date End Date BeDavid jones MD [address] [address] PCP - General Internal Medicine 05/23/18 Hero Baltazar MD [address] [place] [address] [email or web address] Radiation Oncology 11/28/18 documented as of this encounter Additional Source Comments The information contained in this document represents components of the legal health record. It is not the complete legal health record.[facility]
--- OUTSIDE RECORDS SUMMARY | 2025-03-27 10:04 | XMS_ITS | Clinical Summary ---
Author Organization [facility] Address [address] [facility] [address] [place] [address] Phone Care Team Providers Care Burr Filer Name Role Phone David Bynum MD Primary Care Pr ovider Hero Baltazar MD Unavailable [phone] Allergies Active Allergy Reactions Criticality Noted Date Comments Latex 12/13/2021 Sulfa (Sulfonamide Antibiotics) 11/28 Medications metFORMIN (GLUCOPHAGE) 1000 MG tablet Take 1,000 mg by mouth 2 (two) times a day with meals. Active metoprolol succinate (TOPROL-XL) 200 MG 24 hr tablet Take 200 mg by mouth daily. Active DULoxetine (CYMBALTA) 20 MG capsule Take 20 mg by mouth daily. Active hydroCHLOROthia zide (HYDRODIURIL) 12.5 MG tablet Take 12.5 mg by mouth daily. Active estradioL (CLIMARA) 0.1 mg/[address] 1 patch onto the skin once a week. 12 patch 3 07/15/2024 Active predniSONE (DELTASONE) 1 MG tablet Take 3 tablets (3 mg total) by mouth daily with breakfast. 270 tablet 3 07/15/2024 Active insulin pen needles, disposable, 31 gauge x 5/16 Ndle Inject 1 each under the skin daily. For growth hormone injections. 26 each 11 07/22/2024 Active insulin pen needles, disposable, (BD ULTRA-FINE MINI PEN NEEDLE) 31 gauge x 3/16 Ndle Inject 1 each as directed daily. 90 each 07/22/2024 Active GENOTROPIN 12 mg/mL (36 unit/mL) Crtg INJECT 1.4MG UNDER THE SKIN DAILY 3 each 5 12/25/2024 Active Active Problems Problem Noted Date Diagnosed Date Pituitary adenoma 12/07/2018 Encounters Date Type Department Care Team Description 02/21/2025 Documentation [facility] [address] [place] [address], [address] [place] [address] Ashlie Chou RN from Last 3 Months Social History Tobacco Use Types Packs/Day Years Used Date Smoking Tobacco: Never Assessed Education Answer Date Recorded Are you interested in more education? Not on tiffanie e 11/25/2022 Are you concerned about learning? Not on file 11/25/2022 No 11/25/2022 No 11/25/2022 Digital Access Answer Date Recorded No 12/27/2022 No 12/27/2022 No 12/27/2022 Reliable internet access at home? Not on file 12/27/2022 Device with a working camera? Not on file Comments Unknown Sex and Gender Information Value Date Recorded Sex Assigned at Female 09/29/2020 7:00 AM EST Legal Sex Female 11:57 AM EDT Gender Identity Female 09/29/2020 7:00 AM EST Sexual Orientation Straight 09/29/2020 7: 00 AM EST Last Filed Vital Signs Vital Sign Reading Time Taken Comments Blood Pressure 128/74 06/01/2023 10:41 AM EDT Pulse 80 06/01/2023 10:41 AM EDT Temperature - - Respiratory Rate - - Oxygen Saturation - - Inhaled Oxygen Concentration - - Weight 133.8 kg (295 lb) 06/01/2023 10:41 AM EDT Height 175.3 cm (5' 9 ) 06/01/2023 10:41 AM EDT Body Mass Index 43.56 06/01/2023 10:41 AM EDT Plan of Treatment Upcoming Encounters Date Type Department Care Team (Late st Contact Info) Description 07/14/2025 1:30 PM EST Office Visit [facility] [address] [place] [address], [address] [place] [address] Corby Sanchez MD [address] [facility], [address] [place] [address] [email or web address] Health Maintenance Due Date Last Done Comments CREATININE LEVEL 1982 POTASSIUM LEVEL 1982 DEPRESSION SCREENING 1994 SMOKING Hx and SMOKELESS TOBACCO SCREENING 1995 HEPATITIS C SCREENING 01/26/2000 HIV ONE-TIME SCREENING (18-65 YEARS) 01/26/2000 PAP SMEAR 2003 COVID-19 VACCINE ( season) 2024 INFLUENZA VACCINE (#1) 2025 0, 08/05/2019, 07/07/2017 MAMMOGRAM 04/20/2025 04/20/2023, 12/0 03/2019, 04/19/2018 SCREENING FOR DIABETES 06/13/2027 4, 05/12/2020, 05/12/2020, Additional history exists Adult Td,Tdap Booster 08/10/2027 08/10/2017 PNEUMOCOCCAL VACCINES (0-49 years) Aged Out 01/17/2018, 06/18/2010 No longer eligibl e based on patient's age to complete this topic HEPATITIS A VACCINES Aged Out No long er eligible based on patient's age to complete this topic HIB VACCINES Aged Out No longer eligi ble based on patient's age to complete this topic MENINGOCOCCAL VACCINES (ACWY) Aged Out No longer eligible based on patient's age to complete this topic MENINGOCOCCAL VACCINES (B) Aged Out N o longer eligible based on patient's age to complete this topic Medical Devices Not on file Procedures Procedure Name Priority Date/Time Associated Diagnosis Comments GLUCOSE Routine 05/12/2020 8:00 AM EDT Pituitary adenoma Hypopituitarism from Last 3 Months or Most Recently Relevant to Health Maintenance Results * Glucose (05/12/2020 8:00 AM EDT) GLUCOSE 93 70 - 110 mg/dL [facility] 05/12/2020 8:00 AM EDT 05/12/2020 7:48 PM EDT us Corby Sanchez MD LAB BLOOD ORDERABLES Final R esult [address] [address] from Last 3 Months or Most Recently Relevant to Health Maintenance [place] [address] [place] [address] [place] [address] [place] [address] [place] [address] [address] [place] [address] [employer] Care Teams Burr Filer Relationship Specialty Start Date End Date David Bynum MD [address] [place] [address] PCP - General Internal Medicine 05/23/18 Hero Baltazar MD [address] [place] [address] [email or web address] Radiation Oncology 11/28/18 Additional Source Comments The information contained in this document represents components of the legal health record. It is not the complete legal health record.[facility]
--- OUTSIDE RECORDS SUMMARY | 2025-03-27 10:04 | XMS_ITS | Encounter Summary ---
Author Organization [facility] Address [address] [address] Care Team Providers Care Chair Spring Assembler Name Role Phone David Bynum MD Primary Care Provider [phone] Reason for Visit * Reason Onset Date Comments Appointment Request 12/26/2024 Encounter Details Date Type Department Care Team ([facility] st Contact Info) Description 12/26/2024 Telephone [facility] [address] [place] [address] David Bynum MD [address] [place] [address] Appointment Request Social History Tobacco Use Types Packs/Day Years [...] your housing situation today? I have bucky sing 10/19/[address] you li [...] encounter Miscellaneous Notes * Telephone Encounter - Jackelin Marlow - 12/26/2024 9:16 AM EDT Tc from pt requesting appt with pcp documented in this encounter Plan of Treatment Not on file documented as of this encounter Visit Diagnoses Not on filedocumented in this encounter Additional Health Concerns Assessment Noted Time PHQ-9 Depression Total Score: 0 06/13/20 24 9:57 AM EST documented as of this encounter Care Teams Chair Spring Assembler Relationship Specialty Start Date End Date David Bynum MD [address] [place] [phone] PCP - General Internal Medicine 09/22/17 documented as of this encounter
--- OUTSIDE RECORDS SUMMARY | 2025-03-27 10:04 | XMS_ITS | Encounter Summary ---
Author Organization [facility] Address [address] [address] Care Team Providers Care Oracle Adf Developer Name Role Phone David Bynum MD Primary Care Provider [phone] Reason for Visit * Reason Onset Date Comments Referral 02/24/2025 Encounter Details Date Type Department Care Team (Late st Contact Info) Description 02/24/2025 Telephone [facility] [address] [place] [address] David Bynum MD [address] [place] [address] Referral Social History Tobacco Use Types Packs/Day [...] * Telephone Encounter - Francie Miller - 02/24/2025 3:20 PM EDT Referral faxed as requested.to Dr. Childs office. Letter mailed to patient with information. * Telephone Encounter - Tavo Streeter - 02/24/2025 2:26 PM EDT TC from pt reports recently got referred to Referrals: [facility] Services Location: [address] [place] [address] [place] [address] Who are scheduling out for mid to end of April. Pt contacted a different office who would be ableto see her sooner. Pt would like referral modified so she can see : Dr Rosemary Lopez ( neurologist ) [address] [facility] (P) [phone] documented in this encounter Plan of Treatment Not on file documented as of this encounter Visit Diagnoses Not on filedocumented in this encounter Additional Health Concerns Assessment Noted Time PHQ-9 Depression Total Score: 0 06/13/20 24 9:57 AM EST documented as of this encounter Care Teams Oracle Adf Developer Relationship Specialty Start Date End Date David Bynum MD [address] [place] [address] PCP - General Internal Medicine 09/22/17 documented as of this encounter
--- OUTSIDE RECORDS SUMMARY | 2025-03-27 10:04 | XMS_ITS | Clinical Summary ---
Author Organization [employer] Address [address] [place] [address] 7 [place] [address] Care Team Providers Care Railway Signal Operator Name Role Phone David Bynum MD Primary Care Provider [phone] Allergies Active Allergy Reactions Criticality Noted Date Comments Insulin Glargine 03/26/2022 Latex 12/13/2021 Other reaction(s): skin irritation Sulfa Antibiotics Shortness of breath High 7 Other reaction(s): airway closes , DIFF BREATHING Medications furosemide (Lasix) 20 MG tablet Take 1 tablet by mouth at bed time. 02/12/20 22 Active hydroCHLOROthiaz yoselyn (HYDRODiuril) 12.5 MG tablet Take 12.5 mg by mouth in the morning. Active metFORMIN (Glucophage) 1000 MG tablet Take 1,000 mg by mouth 2 times daily. Active Savella 25 MG tablet Take 25 mg by mouth 2 times daily. 10/26/19 22 Active predniSONE (Deltasone) 1 MG tablet 05/29/20 22 Active omeprazole (PriLOSEC) [address] capsule Take 1 capsule by mouth at bed time. 10/26/19 22 Active hydrocortisone 2.5 % creamIndications :Erythema intertrigo APPLY TO THE INGUINAL AND ABDOMINAL FOLDS TWICE DAILY FOR A WEEK 30 g 1 12/14/19 23 Active loratadine (Claritin) 10 MG tablet take 1 tablet by oral route every day 01/05/20 21 Active ibuprofen 600 MG tablet Take 1 tablet (600 mg) by mouth every 8 (eight) hours if needed for mild pain or moderate pain. 90 tablet 1 03/28/20 23 Active lidocaine (Lidoderm) 5 % patchIndications :Intervertebral disc stenosis of neural canal of lumbar region Apply 1 patch topically in the morning. Remove & discard patch within 12 hours or as directed by . 30 patch 3 10/27/19 24 Active Diclofenac Sodium 1 % gelIndications:I ntervertebral disc stenosis of neural canal of lumbar region To apply to the affected area 4 times a day 100 g 3 10/27/19 24 Active metoprolol succinate XL (Toprol-XL) 200 MG 24 hr tabletIndication s:Primary hypertension TAKE 1 TABLET(200 MG) BY MOUTH IN THE MORNING 90 tablet 3 10/30/19 24 Active metFORMIN XR (Glucophage-XR) 500 MG 24 hr tablet TAKE 2 TABLETS BY MOUTH EVERY DAY WITH THE EVENING MEAL 60 tablet 11 03/18/20 24 Active glucose blood (FREESTYLE LITE) test strip USE TO TEST BLOOD SUGAR THREE TIMES DAILY 100 strip 04/23/20 24 Active gabapentin (Neurontin) 100 MG capsuleIndicatio ns:Cervical radiculopathy TAKE 1 CAPSULE(100 MG) BY MOUTH EVERY 8 HOURS 90 capsule 07/10/20 24 Active FreeStyle lancets 1 each by Other route 2 times daily. 100 each 01/01/20 25 Active sodium chloride (Bennett Nasal Sweetwater) 0.65 % nasal spray Administer 1 spray into each nostril if needed for congestion. 30 mL 01/01/20 25 2025 Active ferrous sulfate (Fe Tabs) 325 (65 Fe) MG EC tabletIndication s:Normocytic anemia Take 1 tablet (325 mg) by mouth with breakfast. Do not crush, chew, or split. 30 tablet 01/16/20 25 2025 Active acetaminophen (Mapap Arthritis Pain) 650 MG ER tablet Take 1 tablet (650 mg) by mouth every 8 (eight) hours if needed for mild pain. Do not crush, chew, or split.TAKE 1 TABLET BY MOUTH EVERY 8 HOURS NEEDED FOR PAIN OR FEVER 60 tablet 03/06/20 25 Active Mapap Arthritis Pain 650 MG ER tablet TAKE 1 TABLET BY MOUTH EVERY 8 HOURS NEEDED FOR PAIN OR FEVER 60 tablet 04/28/20 23 2024 Discontinued(R eorder (will not trigger notification to Pharmacy)) Active Problems Problem Noted Date Diagnosed Date Epistaxis 12/31/2024 Strep pharyngitis 12/31/2024 Diarrhea 12/31/2024 Snoring 12/31/2024 Paronychia of great toe, left 11/25/2022 Assessment [...] Encounters Date Type Department Care Team Description 03/26/2025 3:15 PM EDT Office Visit [facility] [address] [place] [address] David Bynum MD Other dysphagia (Primary Dx); Hoarseness; Controlled type 2 diabetes mellitus without complication, without long-term current use of insulin ([facility]); Routine screening for STI (sexually transmitted infection); Epistaxis; Multinodular goiter 03/26/2025 Travel 03/25/2025 Telephone [facility] [address] [place] [address] David Bynum MD chart prep 03/06/2025 Telephone [facility] [address] [place] [phone] David Bynum MD Referral 03/06/2025 Refill [facility] [address] [place] [phone] David Bynum MD 02/24/2025 Telephone [facility] [address] [place] [phone] David Bynum MD Referral 02/11/[address] [phone] David Bynum MD Nurse Triage 01/28/[address] [phone] David Bynum MD Nurse Triage 01/15/2025 Orders Only [facility] [address] [place] [phone] Noa Randolph MD 01/15/2025 Results Follow-Up [facility] [address] [place], [place] [phone] Lisbet Orr, HÉCTOR CBC auto differential 01/14/2025 3:40 PM EDT Office Visit [facility] [address] [place], [place] [phone] David Bynum MD Controlled type 2 diabetes mellitus without complication, without long-term current use of insulin ([facility]) (Primary Dx); Diarrhea, unspecified type; Strep pharyngitis; Dry mouth; Scar of skin after cosmetic surgery; Nasal bleeding 01/14/2025 Travel 01/13/2025 Telephone [facility] [address] [place], [place] [phone] David Bynum MD Results 01/13/[address] [phone] Davdi Bynum MD Nurse Triage 01/10/2025 Orders Only [facility] [address] [place], [place] [phone] David Bynum MD Diarrhea, unspecified type (Primary Dx); Normocytic anemia 01/10/2025 Orders Only [facility] [address] [place], [place] [phone] Noa Randolph MD 01/02/2025 Telephone [facility] [address] [place], [place] [phone] David Bynum MD Results 12/31/2024 3:15 PM EDT Office Visit [facility] [address] [place], [place] [phone] David Bynum MD Diarrhea, unspecified type (Primary Dx); Epistaxis; Strep pharyngitis; Diabetes mellitus without complication ([facility]/HCC); Snoring 12/31/2024 Travel 12/26/[address] [phone] David Bynum MD Appointment Request 12/26/[address] [phone] David Bynum MD Referral 12/25/[address] [phone] David Bynum MD Referral from Last 3 Months Immunizations Immunization Administration Dates Next Due Influenza injectable quadriv [...] 20 03/26/2025 4:10 PM EDT Oxygen Saturation 98% 01/14/2025 3:40 PM EDT Inhaled Oxygen Concentration - - Weight 123 kg (272 lb) 03/26/2025 4:10 PM EDT Height 177.8 cm (5' 10 ) 01/14/2025 3:40 PM EDT Body Mass Index 39.03 01/14/2025 3:40 PM EDT Plan of Treatment Health Maintenance Due Date Last Done Comments Family Planning (PISQ) 1997 HPV Vaccines (1 - 3-dose series) 1997 Hepatitis B Vaccines (1 of 3 - 19+ 3-dose series) 2001 Diabetes: Urine Protein Screening 07/07/2021 07/07/2020 Lipid Panel 06/17/2022 06/17/2021, 07/07/2020 Influenza Vaccine (#1) 2025 , 08/05/2019, 07/07/2017, Additional history exists Mammogram 04/20/2025 04/20/2023, 04/01, 04/14/2022, Additional history exists COVID-19 Vaccine ( season) 2025 Postponed from 03/31/2024 (Patient Refused) Depression Screening 06/13/2025 06/13/2024, 06/13/20 Diabetes: Foot Exam 06/13/2025 06/13/2024 Pneumococcal Vaccine: Pediatrics (0 to 5 Years) and At-Risk Patients (6 to 49) Years (2 of 2 - PCV) 06/13/2025 01/17/2018, 06/18/2010 Postponed fr om 01/17/2019 (Patient Refused) Diabetes: Hemoglobin A1C 07/02/2025 025, 06/13/2024, 03/11/2024, Additional history exists Cervical Cancer Screening 10/06/2025 HPV/Cotest 10/06/2025 10/06/2020, 08/15/2017 Pap Smear 10/06/2025 10/06/2020 Alcohol/Substance Use Screening 03/26/2026 03/26/2025 Disability Screening 03/26/2026 03/26/2025 SDOH Screening 03/26/2026 03/26/2025 Tobacco Screening 03/27/2026 03/27/2025 Eye Exam 12/31/2026 12/31/2024 DTaP/Tdap/Td Vaccines (2 - Td or Tdap) [...] complication, without long-term current use of insulin (CMS/HCC) POCT GLUCOSE Routine 01/14/2025 4:22 PM EDT Controlled type 2 diabetes mellitus without complication, without long-term current use of insulin (CMS/HCC) CBC WITH AUTO DIFFERENTIAL Routine 01/14/2025 Diarrhea, unspecified type CLOSTRIDIOIDES DIFFICILE TOXINS A AND B, EIA Routine 01/14/2025 Diarrhea, unspecified type CBC WITH AUTO DIFFERENTIAL Routine 01/09/2025 Diarrhea, unspecified type XR ABDOMEN COMP INC DECUB AND/OR ERECT Routine 01/01/2025 11:55 AM EDT POCT GLUCOSE Routine 12/31/2024 4:30 PM EDT Diabetes mellitus without complication (CMS/HCC) POCT GLYCATED HEMOGLOBIN, TOTAL Routine 12/31/2024 4:26 PM EDT Diabetes mellitus without complication (CMS/HCC) HM DIABETES EYE EXAM Routine 12/31/2024 9:53 AM EDT BI MAMMOGRAM SCREENING TOMOSYNTHESIS BILATERAL Routine 04/20/2023 [...] Recently Relevant to Health Maintenance Results * POCT Glucose (03/26/2025 4:14 PM EDT) Only the most recent of3 resultswithin the time period is included. Glucose Blood, POC 140 60 - 200 mg/dL QC Media Lot # [id number] Lot# Expiration Date 122 Blood Capillary blood specimen / Unknown 03/26/2025 4:14 PM EDT David Bynum MD POINT OF CARE TEST ENTER/ED IT ORDERABLES Final Result * CBC auto differential (01/14/2025) Only the most recent of2 resultswithin the time period is included. Blood Venous blood specimen / Unknown us David Bynum MD LAB BLOOD ORDERABLES Final Result Performing Organization Address [facility]/ZIP Co de Phone Number [facility] [address] [place] [address] [phone] * Clostridium difficile EIA (01/14/2025) Stool Rectal contents / Unknown us Sally SANTOSP LAB MICROBIOLOGY - GENERAL ORD ERABLES Final Result EXTERNAL LAB * XR ABDOMEN COMP INC DECUB AND/OR ERECT (01/01/2025 11:55 AM EDT) Anatomical Region Laterality Modality Abdomen Radiographic Agnes ging us Historical Provider IMG XR PROCEDURES Final R esult * POCT HGB A1C (12/31/2024 4:26 PM EDT) Hemoglobin A1C 5.7 4.0 - 6.0 % QC Media Lot # [id number] Lot# Expiration Date ,763 Blood 12/31/2024 4:26 PM EDT Sally Pereira IRRIGATIONIST DESIGNER POINT OF CARE TEST ENTER/EDIT ORDERABLES Final Result * Hm Diabetes Eye Exam (12/31/2024 9:53 AM EDT) Historical Provider HEALTH MAINTENANCE Final Result * BI Mammogram Screening Tomosynthesis Bilateral (04/20/2023 12:52 PM EDT) Anatomical Region Laterality Modality Breast Bilateral Mammography 04/20/2023 12:5 2 PM EDT Narrative 05/09/2023 1:00 PM EDT [facility] [place] [address] Mammography Report Signed Patient: Alton Jimenez MR#: [id number] : 1980 Acct:[id number] Age/Sex: 43 / F ADM Date: 04/20/23 Loc: HO.MAMMO Attending Dr: David Bynum MD Ordering Physician: David Bynum MD Results: 1 Negative Date of Service: 04/20/23 Follow Up: 1 Year From [facility] Mammogram Procedure(s): MM tomosynthesis screening BI Accession Number(s): [id number] cc: David Bynum MD EXAMINATION: MM SCREENING [...] in OV> 05/09/23 1257 DD/ 1252 TD/TT: Drill Punch Operator: Procedure Note Donotuseinterpreter, Image - 05/09/2023 [facility] [address] [place] [address] Mammography Report Signed Patient: Ronda Jimenez#: [id number] : 1980Acct:[id number] Age/Sex: 43 / FADM Date: 04/20/23 Loc: HO.MAMMO Attending Dr: David Bynum MD Ordering Physician: David Bynum MDResults: 1 Negative Date of Service: 04/20/23Follow Up: 1 Year From Orig inal Mammogram Procedure(s): MM tomosynthesis screening BI Accession Number(s): [id number] cc: David Bynum MD EXAMINATION: MM SCREENING [...] in OV> 05/09/23 1257 DD/ 1252 TD/TT: Drill Punch Operator: us David Bynum MD IMG BI PROCEDURES Final Res ult * Hepatitis C Antibody with Reflex to HCV, RNA, Quantitative, Real-Time PCR (11/25/2022 4:11 PM EDT) Hepatitis C Antibody NON-REACT DEDE NON-REACT DEDE [facility] Index 0.06 <1.00 [facility] Comment: HCV antibody was non-reactive. There is no laboratory evidence of HCV infection. In most cases, no further action is required. However, if recent HCV exposure is suspected, a test for HCV RNA (test code 15464) is suggested. For additional information please refer to http://education.[employer] L[employer]/faq/BOZ92k0 (This link is being provided for informational/ educational purposes only.) Blood Venous blood specimen / Unknown 11/25/2022 4:11 PM EDT 11/25/2022 4:11 PM EDT Narrative [facility] - 11/28/2022 7:24 PM EDT FASTING:NO FASTING: NO Ashlie Pang MD LAB BLOOD ORDERABLES Final Re sult [facility] [address], [place] [address] [employer] [place] [facility] [address] [place] [address] * HIV-1/2 Antigen and Antibodies, Fourth Generation, with Reflexes (11/25/2022 4:11 PM EDT) Pathologist [facility] HIV Antigen/Antibody, 4th Generation NON-REAC TIVE NON-REAC TIVE [facility] Comment: HIV-1 antigen and HIV-1/HIV-2 antibodies were not detected. There is no laboratory evidence of HIV infection. PLEASE NOTE: This information has been disclosed to you from records whose confidentiality may be protected by state law. If your state requires such protection, then the state law prohibits you from making any further disclosure of the information without the specific written consent of the person to whom it pertains, or as otherwise permitted by law. A general authorization for the release of medical or other information is NOT sufficient for this purpose. For additional information please refer to http://education.[employer] L[employer]/faq/AKX977 (This link is being provided for informational/ educational purposes only.) The performance of this assay has not been clinically validated in patients less than 2 years old. Blood Venous blood specimen / Unknown 11/25/2022 4:11 PM EDT 11/25/2022 4:11 PM EDT Narrative [facility] - 11/28/2022 7:24 PM EDT FASTING:NO FASTING: NO us Ashlie Pang MD LAB BLOOD ORDERABLES Final Re sult [facility] [address], [place] [address] [facility] [address] [place] [address] * (ABNORMAL) LIPID PANEL (06/17/2021 8:53 AM EST) Cholesterol 188 mg/dL [facility] Comment: Desirable Cholesterol: less than 200 mg/dL Borderline High Cholesterol: 200-239 mg/dL High Cholesterol: greater than 239 mg/dL HDL Cholesterol 62 mg/dL [facility] Comment: Desirable HDL: greater than 40 mg/dL Note: This HDL assay may give artificially low results in patients with liver disease. LDL Cholesterol Calculated 112 mg/dl [facility] Comment: Desirable LDL: less than 100 mg/dL Near Optimal/Above Optimal LDL: 110-129 mg/dL Borderline High LDL: 130-159 mg/dL High LDL: 160-189 mg/dL Very High LDL: greater than or equal to 190 mg/dL Triglycerides 70 mg/dL [facility] Comment: Desirable Triglyceride: less than 150 mg/dL Borderline High Triglyceride 150-199 mg/dL High Triglyceride: 200-499 mg/dL Very High Triglyceride: greater than or equal to 5OO mg/dL Alanine Aminotransferase 48(H) 0 - 31 U/L [facility] Albumin Level 4.5 3.5 - 5.0 g/dL [facility] Alkaline Phosphatase 73 39 - 117 U/L [facility] Anion Gap 11(L) 12 - 20 [facility] Aspartate Amino Transferase 35(H) 5 - 31 U/L [facility] Bilirubin Total 0.8 0.0 - 1.0 mg/dL [facility] Blood Urea Nitrogen 13 9 - 16 mg/dL [facility] Calcium 9.5 8.4 - 10.2 mg/dL [facility] Carbon Dioxide 29 22 - 29 mmol/L [facility] Chloride 102 96 - 108 mmol/L [facility] Creatinine, Serum 0.71 0.5 - 1.4 mg/dL [facility] Estimated Glomerular Filt Rate >60 [facility] Comment: NOTE: For -Indian individuals, multiply the result by 1.210. Chronic Kidney Disease: Estimated GFR < 60 mL/min/1.73m2 Severe Kidney Disease: Estimated GFR < 15 mL/min/1.73m2 Glucose Random 91 [...] Binding Capacity 361 228 - 428 mcg/dL [facility] Unsaturated Iron Binding 271 ug/dL [facility] C Reactive Protein 0.49 < or = 0.50 mg/dL [facility] Vitamin D 25-OH Total 13.6 >30 ng/mL [facility] Comment: Health Based Reference Values* < 20 ng/mL Deficient 20-30 ng/mL Insufficient > 30 ng/mL Sufficient *Hang PANDYA. N Engl J Med. 2007;357:266-280 Care must be taken in interpreting Vitamin D results from different laboratories and methodologies. Published data demonstrated that results from patients undergoing hemodialysis may show a negative bias when tested with various automated 25-OH vitamin D assays when compared to LC-MS/MS. When testing samples from patients whose predominant form of Vitamin D is Vitamin D2, such as patients receiving Vitamin D2 supplementation, results that are subtherapeutic should be confirmed with another method such as LC-MS/MS. TSH reflex Free T4 0.91 0.32 - 4.0 uIU/mL [facility] Insulin 46(H) 2 - 29 uU/mL [facility] Comment: This test was performed using the Tee chemiluminescent method. Values obtained from different assay methods cannot be used interchangeably. This insulin assay shows a possible cross-reactivity with antibodies generated against insulin (immunoreactive insulin and some patients treated with bovine or porcine insulin). Insulin levels may be measured lower in patients with insulin autoimmune syndrome or familial high pro-insulinemia. 06/17/2021 8:53 AM EST Historical Provider MD HISTORICAL/NON ORDERABLE LABS Final Result Performing Organization Address [facility] Co de Phone Number [facility] [address] [place] [address], * THINPREP PAP (10/06/2020 12:09 PM EST) Clinical Information: None given [facility] COMMENT SEE COMMENT [facility] Comment: EXPLANATORY NOTE: The Pap is a screening test for cervical cancer. It is not a diagnostic test and is subject to false negative and false positive results. It is most reliable when a satisfactory sample, regularly obtained, is submitted with relevant clinical findings and history, and when the Pap result is evaluated along with historic and current clinical information. Mentally Retarded Teacher : SEE COMMENT [facility] Comment: RK, CT(ASCP) CT screening location: [place] [address] Interpretation/R esult: Negative for intraepithelial lesion or malignancy. [facility] LMP: NONE GIVEN [facility] Prev. BX: NONE GIVEN [facility] Prev. PAP: NONE GIVEN [facility] SOURCE: None given [facility] Statement Of Adequacy: SEE COMMENT [facility] Comment: Satisfactory for evaluation. Endocervical/transformation zone component absent. Age and/or menstrual status not provided 10/06/2020 12:0 9 PM EST Elana Patricio CNM LAB PATHOLOGY ORDERABLES Final Result Performing Organization Address City/[facility]/ZIP Co de Phone Number [facility] [address] * HPV mRNA E6/E7 (10/06/2020 12:09 PM EST) HPV nRNA E6/E7 Not Detected Not Detected [facility] Comment: Methodology: Research Technologist-Mediated Amplification This assay detects E6/E7 viral messenger RNA (mRNA) from 14 high-risk HPV types (16,18,31,33,35,39,45,51,52,56,58,59,66,68). The analytical performance characteristics of this assay have been determined by [facility]. The modifications have not been cleared or approved by the FDA. This assay has been validated pursuant to the CLIA regulations and is used for clinical purposes. For additional information, please refer to http://education.Gold Lasso/faq/LSB211d6 (This link if provided for information/ educational purposes only.) 10/06/2020 12:0 9 PM EST Elana DE DIOS LAB BLOOD ORDERABLES Karine l Result Performing Organization Address [facility] Phone Number [facility] [address] * ALBUMIN, RANDOM URINE W/CREATININE (07/07/2020 8:56 AM EST) Pathologist [facility] Microalbumin Urine 2.8 See Note: mg/dL [facility] Comment: Reference Range: Reference Range Not established Microalb/Creat Ratio 15 <30 mcg/mg creat [facility] Comment: The ADA defines abnormalities in albumin excretion as follows: Category Result (mcg/mg creatinine) Normal <30 Microalbuminuria 30-299 Clinical albuminuria > OR = 300 The ADA recommends that at least two of three specimens collected within a 3-6 month period be abnormal before considering a patient to be within a diagnostic category. Creatinine, Urine 193 20 - 275 mg/dL [facility] 07/07/2020 8:56 AM EST David Bynum MD LAB URINE ORDERABLES Final Result Performing Organization Address [facility]/ZIP Co de Phone Number [facility] [address] from Last 3 Months or Most Recently Relevant to Health Maintenance [place] [address] [place] [address] C3 Care Teams Railway Signal Operator Relationship Specialty Start Date End Date David Bynum MD [address] [place] [phone] PCP - General Internal Medicine 09/22/17
--- OUTSIDE RECORDS SUMMARY | 2025-03-27 10:04 | XMS_ITS | Encounter Summary ---
Author Organization [employer] Address [address] [facility] [address] [place] [address] Care Team Providers Care Routing Machine Operator Name Role Phone David Bynum MD Primary Care Provider [phone] Encounter Details Date Type Department Care Team ([facility] st Contact Info) Description 01/10/2025 Orders Only [facility] [address] [place] [address] Provider, MD Noa Social History Tobacco Use Types Packs/Day Years [...] Procedure Name Priority Date/Time Associated Diagnosis Comments DIABETES EYE EXAM Routine 12/31/2024 9:53 AM EDT documented in this encounter Results * Diabetes Eye Exam (12/31/2024 9:53 AM EDT) us Historical Provider HEALTH MAINTENANCE Final Result documented in this encounter Visit Diagnoses Not on filedocumented in this encounter Additional Health Concerns Assessment Noted Time PHQ-9 Depression Total Score: 0 06/13/20 24 9:57 AM EST documented as of this encounter Care Teams Routing Machine Operator Relationship Specialty Start Date End Date David Bynum MD [address] [place] [phone] PCP - General Internal Medicine 09/22/17 documented as of this encounter
--- OUTSIDE RECORDS SUMMARY | 2025-03-27 10:04 | XMS_ITS | Encounter Summary ---
Author Organization [facility] Address [address] [employer] [facility] [address] [place] [address] Phone Care Team Providers Care Science And Operations Officer Name Role Phone David Bynum MD Primary Care Pr ovider Hero Baltazar MD Unavailable [phone] Encounter Details Date Type Department Care Team (Late st Contact Info) Description 12/14/2018 Radiation Completion Encounter [facility] [place] of Radiation Oncology [facility], [address] [address] Hero Baltazar MD [address] [place] [address] [email or web address] Social History Tobacco Use Types Packs/Day Years [...] Encounters Date Type Department Care Team (Late Contact Info) Description 07/14/2025 1:30 PM EST Office Visit [facility] [address] [place] [address], [facility] [address] [place] [address] Corby Sanchez MD 100 [facility], [facility] [address] [place] [address] [email or web address] documented as of this encounter Visit Diagnoses Not on filedocumented in this encounter Care Teams Science And Operations Officer Relationship Specialty Start Date End Date David Bynum MD [address] [place] [address] PCP - General Internal Medicine 05/23/18 Hero Baltazar MD [address] [place] [address] [email or web address] Radiation Oncology 11/28/18 documented as of this encounter Additional Source Comments The information contained in this document represents components of the legal health record. It is not the complete legal health record.[facility]
--- OUTSIDE RECORDS SUMMARY | 2025-03-27 10:04 | XMS_ITS | Encounter Summary ---
Author Organization [employer] Address [address] [address] Care Team Providers Care Family And Marriage Counsellor Name Role Phone David Bynum MD Primary Care Provider [phone] Reason for Visit * Reason Onset Date Comments Referral 12/26/2024 Encounter Details Date Type Department Care Team ([facility] st Contact Info) Description 12/26/2024 Telephone [facility] 230 [place] [address] David Bynum MD 505 [place] [address] Referral Social History Tobacco Use Types Packs/Day [...] housing situation today? I have buckyelsi brothers 10/19/[address] you [...] Telephone Encounter - Jackelin Marlow - 12/26/2024 9:05 AM EDT TC from pt requesting new referral : DATE: n/a TIME: n/a Address: [address] [place] [address] [address], [place] [address] Visits: 2 x Year Facility Name: Type of Specialist: Neurologist DX: Sleep omnia Provider : Dr. Rosemary Lopez Provider NPI : [id number] Facility NPI: [id number] Phone # : n/a Fax #: n/a Pt stated that , advised that the referral needs to say that she was seen once before in 2020, needs to be send as Follow up. documented in this encounter Plan of Treatment Not on file documented as of this encounter Visit Diagnoses Not on filedocumented in this encounter Additional Health Concerns Assessment Noted Time PHQ-9 Depression Total Score: 0 06/13/20 9:57 AM EST documented as of this encounter Care Teams Family And Marriage Counsellor Relationship Specialty Start Date End Date David Bynum MD [address] [place] [address] PCP - General Internal Medicine 09/22/17 documented as of this encounter
--- OUTSIDE RECORDS SUMMARY | 2025-03-27 10:05 | XMS_ITS | Encounter Summary ---
Author Organization [employer] Address [address] [address] Care Team Providers Care Library Information Technician Name Role Phone David Bynum MD Primary Care Provider [phone]- [phone] Reason for Visit * Reason Onset Date Comments PT1 08/27/2024 Encounter Details Date Type Department Care Team ([facility] Contact Info) Description 08/27/2024 Telephone [facility] MED & PEDS [address] [place], [place] [phone] David Bynum MD 505 [place] [address] PT1 Social History Tobacco Use Types Packs/Day [...] facility name: [facility] Facility Address: [address] [place] [address] Escort needed: Y/N: Yes Do you have [...] documented as of this encounter Care Teams Library Information Technician Relationship Specialty Start Date End Date David Bynum MD [address] [place] [address] PCP - General Internal Medicine 09/22/17 documented as of this encounter
--- OUTSIDE RECORDS SUMMARY | 2025-03-27 10:05 | XMS_ITS | Encounter Summary ---
Author Organization [facility] Address [address] [place] [address] Phone Care Team Providers Care Tattoo And Body Artist Name Role Phone David Bynum MD Primary Care Pr ovider Hero Baltazar MD Unavailable [phone] Encounter Details Date Type Department Care Team (Late st Contact Info) Description 08/06/2021 Procedure Pass MRI, [facility] - [place] [address] [place] [address] Social History Tobacco Use Types Packs/Day Years [...] Description 07/14/2025 1:30 PM EST Office Visit [address], [address] [place] [address] Corby Sanchez MD [address] [place] [address], [address] [place] [address] [email or web address] documented as of this encounter Visit Diagnoses Not on filedocumented in this encounter Care Teams Tattoo And Body Artist Relationship Specialty Start Date End Date David Bynum MD [address] [address] PCP - General Internal Medicine 05/23/18 Hero Baltazar MD 100 [place] [address] [email or web address] Radiation Oncology 11/28/18 documented as of this encounter Additional Source Comments The information contained in this document represents components of the legal health record. It is not the complete legal health record.[facility]
--- OUTSIDE RECORDS SUMMARY | 2025-03-27 10:05 | XMS_ITS | Encounter Summary ---
Author Organization [employer] Address [address] [place] [address] Care Team Providers Care Bagger And Stock Handler Helper Name Role Phone David Bynum MD Primary Care Provider [phone] Reason for Visit * Reason Onset Date Comments Referral 04/07/2023 Encounter Details Date Type Department Care Team ([facility] st Contact Info) Description 04/07/2023 Telephone [facility] CH[facility] MED & PEDS 505 [place], [place] [phone] David Bynum MD 505 [place] [address] Referral Social History Tobacco Use Types Packs/Day [...] 1:18 PM EDT referral # faxed to [employer] * Telephone Encounter - Latoya Vuong - 04/07/2023 1:11 PM EDT Tc from pt requesting renewal of referral. Location: [address] Date: n/a Time: n/a Fax: n/a Specialty: orthopedics (knee) documented in this encounter Plan of Treatment Not on file documented as of this encounter Visit Diagnoses Not on filedocumented in this encounter Additional Health Concerns Assessment Noted Time PHQ-9 Depression Total Score: 5 08/30/19 23 4:09 PM EST documented as of this encounter Care Teams Bagger And Stock Handler Helper Relationship Specialty Start Date End Date David Bynum MD [address] [place] [address] PCP - General Internal Medicine 09/22/17 documented as of this encounter
--- OUTSIDE RECORDS SUMMARY | 2025-03-27 10:05 | XMS_ITS | Encounter Summary ---
Author Organization [employer] Address 75 [facility] 7 [place] [address] Care Team Providers Care Belt Splicer Name Role Phone David Bynum MD Primary Care Provider [phone] Encounter Details Date Type Department Care Team (Latest Contact Info) Description 03/26/2025 Travel Social History Tobacco Use Types Packs/Day Years [...] documented as of this encounter Care Teams Belt Splicer Relationship Specialty Start Date End Date David Bynum MD 505 [place] [address] PCP - General Internal Medicine 09/22/17 documented as of this encounter
--- OUTSIDE RECORDS SUMMARY | 2025-03-27 10:05 | XMS_ITS | Encounter Summary ---
Author Organization [employer] Address 75 [facility] [address] [address] Care Team Providers Care Tube Filler Name Role Phone David Bynum MD Primary Care Provider [phone] Reason for Visit * Reason Onset Date Comments Nurse Triage 12/20/2023 Encounter Details Date Type Department Care Team ([facility] st Contact Info) Description 12/20/2023 Telephone [facility] 230 [place] [address] David Bynum MD 505 [place] [address] Nurse Triage Social History Tobacco Use Types [...] appeared after taking unknown abx bought in [place]. Pt states when she stopped taking this med, symptoms resolved. Pt denies any current symptoms pt was c/o last week. Pt advised if symptoms return to go to ED. Pt agrees with plan. * Telephone Encounter - Shana Meyer LPN - 12/20/2023 11:25 AM EDT Triage call returned to patient with [place] planimeter operator [id number]. Patient reports that she has chestpain right [...] plan. Will seek cardiac evaluation at either [facility] or [facility] ED.Reviewed with pt to contact PCP office [...] nurse or provider NOW! Reason: Trouble breathing Uzbek Speaker (Accepted planimeter operator) documented in this encounter Plan of Treatment Not on file documented as of this encounter Visit Diagnoses Not on filedocumented in this encounter Additional Health Concerns Assessment Noted Time PHQ-9 Depression Total Score: 5 08/30/19 23 4:09 PM EST documented as of this encounter Care Teams Tube Filler Relationship Specialty Start Date End Date David Bynum MD [address] [place] [address] PCP - General Internal Medicine 09/22/17 documented as of this encounter
--- OUTSIDE RECORDS SUMMARY | 2025-03-27 10:05 | XMS_ITS | Encounter Summary ---
Author Organization [employer] Address [address] [place] [address] [facility] [place] [address] Care Team Providers Care Affiliate Marketing Specialist Name Role Phone David Bynum MD Primary Care Provider [phone] Reason for Referral * Imaging (Routine) - Closed Specialty Diagnoses / Procedures Referred By Contac t Referred To Contact Radiology Diagnoses Intervertebral disc stenosis of neural canal of lumbar region Procedures MR Lumbar Spine w/o Contrast David Bynum MD [address] [place] [address] Phone: tel: fax: [facility] Referral ID Status Reason Start Date Expiration Date Visits Re quested Visits Authorized [id number] Closed 10/16/2023 10/15/2024 1 1 Encounter Details Date Type Department Care Team (Late st Contact Info) Description 10/16/2023 Orders Only [facility] CHC MED & PEDS 505 [place] [address] David Bynum MD 505 [place] [address] Intervertebral disc stenosis of neural canal of [...] documented as of this encounter Care Teams Affiliate Marketing Specialist Relationship Specialty Start Date End Date David Bynum MD [address] [place] [phone] PCP - General Internal Medicine 09/22/17 documented as of this encounter
--- OUTSIDE RECORDS SUMMARY | 2025-03-27 10:05 | XMS_ITS | Encounter Summary ---
Author Organization [employer] Address 75 [facility] 7 [place] [address] Care Team Providers Care Epidemiologist Name Role Phone David Bynum MD Primary Care Provider [phone] Encounter Details Date Type Department Care Team ([facility] st Contact Info) Description 12/13/2022 Orders Only [facility] CHC MED & PEDS 505 [place] [address] Gillian Balderrama LPN Social History Tobacco Use [...] documented as of this encounter Care Teams Epidemiologist Relationship Specialty Start Date End Date David Bynum MD [address] [place] [address] PCP - General Internal Medicine 09/22/17 documented as of this encounter
--- OUTSIDE RECORDS SUMMARY | 2025-03-27 10:05 | XMS_ITS | Encounter Summary ---
Author Organization [employer] Address 75 [facility] 7 [place] [address] Care Team Providers Care Weather Algorithm Scientist Name Role Phone David Bynum MD Primary Care Provider [phone] Encounter Details Date Type Department Care Team ([facility] st Contact Info) Description 01/15/2025 Orders Only [facility] [address] [place] [address] ProviderNoa MD Social History Tobacco Use Types Packs/Day Years [...] Procedure Name Priority Date/Time Associated Diagnosis Comments XR ABDOMEN COMP INC DECUB AND/OR ERECT Routine 01/01/2025 11:55 AM EDT documented in this encounter Results * XR ABDOMEN COMP INC DECUB AND/OR ERECT (01/01/2025 11:55 AM EDT) Anatomical Region Laterality Modality Abdomen Radiographic Agnes ging us Historical Provider MD ROJAS XR PROCEDURES Final R esult documented in this encounter Visit Diagnoses Not on filedocumented in this encounter Additional Health Concerns Assessment Noted Time PHQ-9 Depression Total Score: 0 06/13/20 24 9:57 AM EST documented as of this encounter Care Teams Weather Algorithm Scientist Relationship Specialty Start Date End Date David Bynum MD [address] [place] [address] PCP - General Internal Medicine 09/22/17 documented as of this encounter
--- OUTSIDE RECORDS SUMMARY | 2025-03-27 10:05 | XMS_ITS | Encounter Summary ---
Author Organization [employer] Address [address] [place] [address] Care Team Providers Care Rx Specialist Name Role Phone David Bynum MD Primary Care Provider [phone] Encounter Details Date Type Department Care Team (Late st Contact Info) Description 03/09/2023 [facility] 230 [place] [address] David Bynum MD 505 [place] [address] Social History Tobacco Use Types Packs/Day Years [...] documented as of this encounter Care Teams Rx Specialist Relationship Specialty Start Date End Date David Bynum MD [address] [place] [address] PCP - General Internal Medicine 09/22/17 documented as of this encounter
[2025-03-27 14:52] LABS: MANUAL DIFF FLAG NO
[2025-03-27 15:00] LABS: Hematocrit 35.9 % (37.0-47.0); Hemoglobin 11.9 g/dl (12.0-16.0); Imm Gran Abs Auto 0.01 X10*3/uL (0.00-0.03); Imm Gran Pct Auto 0.2 % (0.0-0.4); Lymphocytes Absolute Auto 2.2 X10*3/uL (1.2-4.9); Mean Corpuscular HGB Conc 33.1 g/dl (31.0-35.0); Mean Corpuscular Hemoglobin 30.2 pg (27.0-33.0); Mean Corpuscular Volume 91.1 fL (80.0-98.0); NRBC Abs Auto 0.020 X10*3/uL (0.0-0.012); NRBC Pct Auto 0.5 /100WBC (0.0-0.2); Platelet Count 111 X10*3/uL (160-400); Red Blood Count 3.94 X10*6/uL (4.20-5.50); White Blood Count 4.4 X10*3/uL (4.8-10.8)
[2025-03-28 03:48] LABS: HIV Num 1 0.08 S/CO (0.00-0.99); ~HepC Num1 0.15 S/CO (0.00-0.79); ~Hepatitis C Antibody Nonreactive (Nonreactive)
== END 2025-03-27 09:07 | disposition home or self-care (01) ==
LOC: HO.CHCLDS 09:06
PROVIDERS: Visit Provider Internal Medicine
DX: Z11.3 Encounter for screening for infections with a predominantly sexual mode of transmission (principal); Z11.4 Encounter for screening for human immunodeficiency virus [HIV]; Z11.59 Encounter for screening for other viral diseases; R04.0 Epistaxis
CPT/HCPCS: 36415; 85025; 86592; 86803; 87389

== ENCOUNTER 2025-04-01 14:10 | Outpatient (REF) | payer MEDICAID, SELFPAY ==
[2025-04-01 14:20] LABS: Appearance Urine Clear; Glucose Urine UA Negative (Negative); PH 6.0 (5.0-9.0); Specific Gravity - Urine 1.020 (1.005-1.025); UMIC TRIGGER UACC YES
--- OUTSIDE RECORDS SUMMARY | 2025-04-01 15:25 | XMS_ITS | Encounter Summary ---
Author Organization [facility] Address 399 [facility] [address] [place] [address] Phone Care Team Providers Care Card Hand Name Role Phone David Bynum MD Primary Care Pr ovider Hero Baltazar MD Unavailable [phone] Encounter Details Date Type Department Care Team (Late st Contact Info) Description 11/19/2018 Procedure Pass [facility] [address] [place] [address] Social History Tobacco Use Types Packs/Day Years [...] Description 07/14/2025 1:30 PM EST Office Visit [facility] [place] [facility] [address] [place] [address], [address] [address] Corby Sanchez MD [address] [place] [address] [email or web address] documented as of this encounter Visit Diagnoses Not on filedocumented in this encounter Care Teams Card Hand Relationship Specialty Start Date End Date BeDavid jones MD [address] [address] PCP - General Internal Medicine 05/23/18 Hero Baltazar MD [address] [place] [phone] [email or web address] Radiation Oncology 11/28/18 documented as of this encounter Additional Source Comments The information contained in this document represents components of the legal health record. It is not the complete legal health record.[facility]
--- OUTSIDE RECORDS SUMMARY | 2025-04-01 15:25 | XMS_ITS | Encounter Summary ---
Author Organization [facility] Address 399 [facility] [address] [place] [address] Phone Care Team Providers Care Military Personnel Specialist Name Role Phone David Bynum MD Primary Care Pr ovider Hero Baltazar MD Unavailable [phone] Encounter Details Date Type Department Care Team (Late st Contact Info) Description 12/14/2018 Radiation Completion Encounter [facility] [place] [facility], [address] [address] Hero Baltazar MD [address] [place] [address] [email or web address] Social History Tobacco Use Types Packs/Day Years [...] 1:30 PM EST Office Visit [facility] [address] [place] [address], [facility] 140 [place] [address] Corby Sanchez MD 100 [facility], [facility] [address] [place] [address] [email or web address] u documented as of this encounter Visit Diagnoses Not on filedocumented in this encounter Care Teams Military Personnel Specialist Relationship Specialty Start Date End Date David Bynum MD [address] [place] [address] PCP - General Internal Medicine 05/23/18 Hero Baltazar MD [address] [place] [address] [email or web address] Radiation Oncology 11/28/18 documented as of this encounter Additional Source Comments The information contained in this document represents components of the legal health record. It is not the complete legal health record.[facility]
--- OUTSIDE RECORDS SUMMARY | 2025-04-01 15:25 | XMS_ITS | Encounter Summary ---
Author Organization [facility] Address 399 [facility] [address] [place] [address] Phone Care Team Providers Care Administrative Underwriter Name Role Phone David Bynum MD Primary Care Pr ovider Hero Baltazar MD Unavailable [phone] Encounter Details Date Type Department Care Team (Late st Contact Info) Description 11/19/2018 Procedure Pass [facility] [address] [place] [address] Social History Tobacco Use Types Packs/Day Years [...] Description 07/14/2025 1:30 PM EST Office Visit [facility] [address] [place] [address], [address] [address] Corby Sanchez MD [address] [place] [address] [email or web address] documented as of this encounter Visit Diagnoses Not on filedocumented in this encounter Care Teams Administrative Underwriter Relationship Specialty Start Date End Date BeDavid jones MD [address] [address] PCP - General Internal Medicine 05/23/18 Hero Baltazar MD [address] [place] [address] [email or web address] Radiation Oncology 11/28/18 documented as of this encounter Additional Source Comments The information contained in this document represents components of the legal health record. It is not the complete legal health record.[facility]
--- OUTSIDE RECORDS SUMMARY | 2025-04-01 15:25 | XMS_ITS | Encounter Summary ---
Author Organization [employer] Address [address] [place] [address] Care Team Providers Care Category Director Name Role Phone David Bynum MD Primary Care Provider [phone] Reason for Referral * Consultation (Routine) - Pending Review Specialty Diagnoses / Procedures Referred By Contac t Referred To Contact Hematology and Oncology Diagnoses Pancytopenia (CMS/HCC) David Bynum MD 505 [place] [address] Phone: tel: fax: Referral ID Status Reason Start Date Expiration Date Visits Requested Visits Authorized [id number] Pending Review Specialty Services Required 03/28/2025 03/28/2026 1 1 Encounter Details Date Type Department Care Team ([facility] st Contact Info) Description 03/28/2025 Orders Only [facility] CH[facility] MED & PEDS [address] [place] [address] David Bynum MD 505 [place] [address] Pancytopenia (CMS/HCC) (Primary Dx) Social History Tobacco Use Types [...] Upcoming Encounters Date Type Department Care Team ([facility] st Contact Info) Description 05/09/2025 2:30 PM EDT Office Visit [facility] MED & PEDS [address] [place] [address] David Bynum MD 505 [place] [address] Scheduled Referrals Name Type Priority Associated Diagnoses Order Schedule Referral to Hematology / Oncology Outpatient Referral Routine Pancytopenia (CMS/HCC) Expected: 03/28/2025 (Approximate), Expires: 03/28/2026 documented as of this encounter Visit Diagnoses Diagnosis Pancytopenia (CMS/HCC)- Primary documented in this encounter Additional Health Concerns Assessment Noted Time PHQ-9 Depression Total Score: 0 06/13/20 24 9:57 AM EST documented as of this encounter Care Teams Category Director Relationship Specialty Start Date End Date David Bynum MD [address] [place] [address] PCP - General Internal Medicine 09/22/17 documented as of this encounter
--- OUTSIDE RECORDS SUMMARY | 2025-04-01 15:25 | XMS_ITS | Encounter Summary ---
Author Organization [employer] Address 75 [facility] 7 [place] [address] Care Team Providers Care Attorney General Name Role Phone David Bynum MD Primary Care Provider [phone] Encounter Details Date Type Department Care Team ([facility] st Contact Info) Description 04/01/2025 Orders Only [facility] CHC MED & PEDS 505 [place], [place] [phone] David Bynum MD 505 [place] [address] Social History Tobacco Use Types Packs/Day Years [...] Care Team (Late st Contact Info) Description 05/09/2025 2:30 PM EDT Office Visit [facility] MED & PEDS [address] [place] [address] David Bynum MD [address] [place] [address] documented as of this encounter Procedures Procedure Name Priority Date/Time Associated Diagnosis Comments URINALYSIS, COMPLETE, WITH REFLEX TO CULTURE Routine 04/01/2025 8:55 AM EDT documented in this encounter Results * (ABNORMAL) Urinalysis, Complete, with Reflex to Culture (04/01/2025 8:55 AM EDT) Color Urine Yellow [facility] Appearance Urine Clear [facility] PH 6.0 5.0 - 9.0 [facility] Glucose Urine UA Negative Negative mg/dL [facility] Urine Blood Trace(A) Negative [facility] Specific [place] - Urine 1.020 1.005 - 1.025 [facility] Urine Protein Negative Neg-Trace mg/dL [facility] Urine Ketones Negative Negative mg/dL [facility] Nitrite Urine Negative Negative [facility] Leukocyte Esterase Urine Negative Negative [facility] RBC Urine 0-2 0 - 2 /HPF [facility] Urine WBC 0-5 0 - 5 /HPF [facility] Urine Squamous Epithelial Cell 0-2 0 - 2 /HPF [facility] Urine Bacteria None Seen None Seen [facility] Hyaline Casts, Urine 0-2 0 - 2 /LPF [facility] 04/01/2025 8:55 AM EDT 04/01/2025 2:11 PM EDT Narrative [facility] - 04/01/2025 2:23 PM EDT Urine, Clean Catch us David Bynum MD LAB URINE ORDERABLES Final Result [facility] [address] [place] [address] [phone] documented in this encounter Visit Diagnoses Not on filedocumented in this encounter Additional Health Concerns Assessment Noted Time PHQ-9 Depression Total Score: 0 06/13/20 24 9:57 AM EST documented as of this encounter Care Teams Attorney General Relationship Specialty Start Date End Date David Bynum MD [address] [place] [address] PCP - General Internal Medicine 09/22/17 documented as of this encounter
--- OUTSIDE RECORDS SUMMARY | 2025-04-01 15:25 | XMS_ITS | Clinical Summary ---
Author Organization [facility] Address [address] [place] [address] Care Team Providers Care Parts Person Name Role Phone David Bynum MD Primary Care Provider [phone] Medical History Medical History Date Comments Hypertension [...] 07/03/2022 Social Influencers of Health Screening 07/03/2022 Depression Screening 07/31/2024 Diabetes: Annual Urine Albumin-Creatinine Ratio (uACR) 09/13/2024 Hypertension/CHF/CAD Annual BMP Blood Test 09/13/2024 Diabetes: Blood Sugar Control Test (HGBA1C) 12/11/2024 06/13/2024 COVID-19 Vaccine ( season) 2025 Influenza Vaccine (#1) 2025 , 08/05/2019, 07/07/2017, [...] age to complete this topic Care Teams Parts Person Relationship Specialty Start Date End Date David Bynum MD [address] [place] [address] PCP - General Internal Medicine 06/22/21
--- OUTSIDE RECORDS SUMMARY | 2025-04-01 15:25 | XMS_ITS | Encounter Summary ---
Author Organization [facility] Address [address] [facility] [address] [place] [address] Phone Care Team Providers Care Clip Loading Machine Adjuster Name Role Phone David Bynum MD Primary Care Pr ovider Hero Baltazar MD Unavailable [phone] Encounter Details Date Type Department Care Team (Late st Contact Info) Description 06/04/2018 Procedure [facility] [address] [place] [address] Social History Tobacco Use Types Packs/Day Years [...] Description 07/14/2025 1:30 PM EST Office Visit [facility] [address] [place] [address], [address] [address] Corby Sanchez MD [address] [place] [address] [email or web address] documented as of this encounter Visit Diagnoses Not on filedocumented in this encounter Care Teams Clip Loading Machine Adjuster Relationship Specialty Start Date End Date BeDavid jones MD [address] [address] PCP - General Internal Medicine 05/23/18 Hero Baltazar MD [address] [place] [address] [email or web address] Radiation Oncology 11/28/18 documented as of this encounter Additional Source Comments The information contained in this document represents components of the legal health record. It is not the complete legal health record.[facility]
--- OUTSIDE RECORDS SUMMARY | 2025-04-01 15:25 | XMS_ITS | Clinical Summary ---
Author Organization [facility] Address [address] [facility] [facility] [address] [place] [address] Phone Care Team Providers Care Coach Mechanic Name Role Phone David Bynum MD Primary Care Pr ovider Hero Baltazar MD Unavailable [phone] Allergies Active Allergy Reactions Criticality Noted Date [...] Type Department Care Team Description 02/21/2025 Documentation [facility] [address] [place] [address], [address] [place] [address] Ashlie Chou RN from Last 3 Months [...] Description 07/14/2025 1:30 PM EST Office Visit [facility] [address] [place] [address], [address] [place] [address] Corby Sanchez MD [address] [facility], [address] [place] [address] [email or web address] Health Maintenance Due Date Last Done [...] EDT) GLUCOSE 93 70 - 110 mg/dL [facility] 05/12/2020 8:00 AM EDT 05/12/2020 7:48 PM EDT us Corby Sanchez MD LAB BLOOD ORDERABLES Final R esult [address] [address] from Last 3 Months or Most Recently Relevant to Health Maintenance [place] [address] [address] [address] [place] [address] [place] [address] [place] [address] [address] [place] [address] C3 ACO Care Teams Coach Mechanic Relationship Specialty Start Date End Date David Bynum MD [address] [place] [address] PCP - General Internal Medicine 05/23/18 Hero Baltazar MD [address] [place] [address] [email or web address] Radiation Oncology 11/28/18 Additional Source Comments The information contained in this document represents components of the legal health record. It is not the complete legal health record.[facility]
--- OUTSIDE RECORDS SUMMARY | 2025-04-01 15:25 | XMS_ITS | Clinical Summary ---
Author Organization [employer] Address [address] [place] [address] 7 [place] [address] Care Team Providers Care Linen Folder Name Role Phone David Bynum MD Primary Care Provider [phone] Allergies Active Allergy Reactions Criticality Noted Date [...] 100 each 01/01/20 25 Active sodium chloride (Ward Nasal [place]) 0.65 % nasal spray Administer 1 spray [...] Encounters Date Type Department Care Team Description 04/01/2025 Orders Only [facility] [address] [place] [address] David Bynum MD 03/28/2025 Orders Only [facility] [address] [place] [address] David Bynum MD Pancytopenia (CMS/HCC) (Primary Dx) 03/26/2025 3:15 PM EDT Office Visit [facility] [address] [place] [address] David Bynum MD Other dysphagia (Primary Dx); Hoarseness; Controlled type 2 diabetes mellitus without complication, without long-term current use of insulin (CMS/HCC); Routine screening for STI (sexually transmitted infection); Epistaxis; Multinodular goiter 03/26/2025 Travel 03/25/2025 Telephone [facility] [address] [place] [address] David Bynum MD chart prep 03/06/[address] [phone] David Bynum MD Referral 03/06/[address] [address] David Bynum MD 02/24/[address] [address] David Bynum MD Referral 02/11/[address] [address] David Bynum MD Nurse Triage 01/28/[address] [address] David Bynum MD Nurse Triage 01/15/2025 Orders Only [facility] [address] [place] [address] Noa Randolph MD 01/15/2025 Results Follow-Up [facility] [address] [place] [address] Lisbet Orr, HÉTCOR CBC auto differential 01/14/2025 3:40 PM EDT Office Visit [facility] [address] [place] [address] David Bynum MD Controlled type 2 diabetes mellitus without complication, without long-term current use of insulin ([facility]) (Primary Dx); Diarrhea, unspecified type; Strep pharyngitis; Dry mouth; Scar of skin after cosmetic surgery; Nasal bleeding 01/14/2025 Travel 01/13/2025 Telephone [facility] [address] [place] [address] David Bynum MD Results 01/13/[address] [phone] David Bynum MD Nurse Triage 01/10/2025 Orders Only [facility] [address] [place] [address] David Bynum MD Diarrhea, unspecified type (Primary Dx); Normocytic anemia 01/10/2025 Orders Only [facility] [address] [place], [place] Ash[place] [phone] ProviderNoa MD 01/02/2025 Telephone [facility] [address] [facility] LJ Rice [phone] David Bynum MD Results 12/31/2024 3:15 PM EDT Office Visit [facility] [address] [facility] [address] [place] [phone] David Bynum MD Diarrhea, unspecified type (Primary Dx); Epistaxis; Strep pharyngitis; Diabetes mellitus without complication ([facility]/HCC); Snoring 12/31/2024 Travel from Last 3 Months Immunizations Immunization Administration [...] 01/14/2025 3:40 PM EDT Plan of Treatment Upcoming Encounters Date Type Department Care Team (Late st Contact Info) Description 05/09/2025 2:30 PM EDT Office Visit [facility] [address] [place] [address] David Bynum MD [address] [place] [address] Health Maintenance Due Date Last Done Comments Family Planning (PISQ) 1997 HPV Vaccines (1 - 3-dose series) 1997 Hepatitis B Vaccines (1 of 3 - 19+ 3-dose series) 2001 Diabetes: Urine Protein Screening 07/07/2021 07/07/2020 Lipid Panel 06/17/2022 06/17/2021, 07/07/2020 COVID-19 Vaccine (1 - season) 2025 Influenza Vaccine (#1) 2025 , 08/05/2019, 07/07/2017, Additional history exists Mammogram 04/20/2025 04/20/2023, 04/01, 04/14/2022, Additional history exists Depression Screening 06/13/2025 06/13/2024, 06/13/20 Diabetes: Foot [...] 1-dose 75+ series) 2057 HIV Screening Completed 03/27/2025, 10/30, 10/06/2020 Hepatitis C Screening Completed 03/27/2025 , 11/25/2022, 10/06/2020 HIB Vaccines Aged Out No longer eligi [...] TO CULTURE Routine 04/01/2025 8:55 AM EDT CBC WITH AUTO DIFFERENTIAL Routine 03/27/2025 9:08 AM EDT Epistaxis RPR (MONITOR) W/REFL TITER Routine 03/27/2025 9:08 AM EDT Routine screening for STI (sexually transmitted infection) HEPATITIS C AB W/REFL TO HCV RNA, QN, PCR Routine 03/27/2025 9:08 AM EDT Routine screening for STI (sexually transmitted infection) HIV 1/2 ANTIGEN/ANTIBODY, FOURTH GENERATION W/RFL Routine 03/27/2025 9:08 AM EDT Routine screening for STI (sexually transmitted infection) POCT GLUCOSE Routine 03/26/2025 4:14 PM EDT Controlled type 2 diabetes mellitus without complication, without long-term current use of insulin (CMS/[facility]) POCT GLUCOSE Routine 01/14/2025 4:22 PM EDT [...] TOMOSYNTHESIS BILATERAL Routine 04/20/2023 12:52 PM EDT ZZZ HISTORICAL LIPID PANEL Routine 06/17/2021 8:53 AM EST HPV MRNA E6/E7 Routine 10/06/2020 12:09 PM EST THINPREP PAP Routine 10/06/2020 12:09 PM EST ALBUMIN, RANDOM URINE W/CREATININE Routine 07/07/2020 8:56 AM EST from Last 3 Months or Most Recently Relevant to Health Maintenance Results * (ABNORMAL) Urinalysis, Complete, with Reflex to Culture (04/01/2025 8:55 AM EDT) Color Urine Yellow [facility] Appearance Urine Clear [facility] PH 6.0 5.0 - 9.0 [facility] Glucose Urine UA Negative Negative mg/dL [facility] Urine Blood Trace(A) Negative [facility] Specific [place] - Urine 1.020 1.005 - 1.025 [facility] Urine Protein Negative Neg-Trace mg/dL [facility] Urine Ketones Negative Negative mg/dL [facility] Nitrite Urine Negative Negative [facility] Leukocyte Esterase Urine Negative Negative [facility] RBC Urine 0-2 0 - 2 /HPF [facility] Urine WBC 0-5 0 - 5 /HPF [facility] Urine Squamous Epithelial Cell 0-2 0 - 2 /HPF [facility] Urine Bacteria None Seen None Seen [facility] Hyaline Casts, Urine 0-2 0 - 2 /LPF [facility] 04/01/2025 8:55 AM EDT 04/01/2025 2:11 PM EDT Narrative [facility] - 04/01/2025 2:23 PM EDT Urine, Clean Catch us David Bynum MD LAB URINE ORDERABLES Final Result [facility] [address] [place], [place] [phone] * (ABNORMAL) CBC auto differential (03/27/2025 9:08 AM EDT) Only the most recent of3 resultswithin the time period is included. White Blood Count 4.4(L) 4.8 - 10.8 X10*3/uL [facility] Red Blood Count 3.94(L) 4.20 - 5.50 X10*6/uL [facility] Hemoglobin 11.9(L) 12.0 - 16.0 g/dl [facility] Hematocrit 35.9(L) 37.0 - 47.0 % [facility] Mean Corpuscular Volume 91.1 80.0 - 98.0 fL [facility] Mean Corpuscular Hemoglobin 30.2 27.0 - 33.0 pg [facility] Mean Corpuscular HGB Conc 33.1 31.0 - 35.0 g/dl [facility] Red Cell Distribution Width 12.6 11.0 - 16.0 % [facility] Platelet Count 111(L) 160 - 400 X10*3/uL [facility] Mean Platelet Volume 11.4 9.4 - 12.3 fL [facility] Neutrophils Percent Auto 42.9(L) 45 - 73 % [facility] Imm Gran Pct Auto 0.2 0.0 - 0.4 % [facility] Lymphocytes Percent Auto 50.1(H) 20 - 40 % [facility] Monocytes Percent Auto 5.6 2 - 11 % [facility] Eosinophils Percent Auto 0.7 0 - 4 % [facility] Basophils Percent Auto 0.5 0 - 2 % [facility] NRBC Pct Auto 0.5(H) 0.0 - 0.2 /100WBC [facility] Neutrophils Absolute Auto 1.9(L) 2.0 - 8.3 x10*3/uL [facility] Imm Gran Abs Auto 0.01 0.00 - 0.03 X10*3/uL [facility] Lymphocytes Absolute Auto 2.2 1.2 - 4.9 X10*3/uL [facility] Monocytes Absolute Auto 0.3 0.1 - 1.2 X10*3/uL [facility] Eosinophils Absolute Auto 0.0 0.0 - 0.4 X10*3/uL [facility] Basophils Absolute Auto 0.0 0.0 - 0.2 X10*3/uL [facility] NRBC Abs Auto 0.020(H) 0.0 - 0.012 X10*3/uL [facility] Blood Venous blood specimen / Unknown 03/27/2025 9:08 AM EDT 03/27/2025 2:41 PM EDT us David Bynum MD LAB BLOOD ORDERABLES Final Result Performing Organization Address [facility] de Phone Number [facility] [address] [place] [phone] * Hepatitis C Antibody with Reflex to HCV, RNA, Quantitative, Real-Time PCR (03/27/2025 9:08 AM EDT) Hepatitis C Antibody Nonreactive Nonreactive [facility] Comment:Antibodies to HCV no t detected; does not exclude early acuteHCV infection. Blood Venous blood specimen / Unknown 03/27/2025 9:08 AM EDT 03/27/2025 2:41 PM EDT David Bynum MD LAB BLOOD ORDERABLES Final Result Performing Organization Address [facility]/ZIP Co de Phone Number [facility] [address] [place] [phone] * RPR (Monitor) with Reflex to??Titer (03/27/2025 9:08 AM EDT) RPR (Monitor) w/Refl Titer NON-REACTI VE NON-REACT DEDE [facility] Comment:THIS TEST WAS PERFOR MED AT:[facility] [place] [phone] STAPLES MD Rapid Plasma Reagin Ab Titer TNP [facility] Blood Venous blood specimen / Unknown 03/27/2025 9:08 AM EDT 03/27/2025 2:41 PM EDT us David Bynum MD LAB BLOOD ORDERABLES Final Result [facility] [address] [place] [address] [phone] * HIV-1/2 Antigen and Antibodies, Fourth Generation, with Reflexes (03/27/2025 9:08 AM EDT) HIV AB/AG Nonreactive Nonreactive [facility] Comment:HIV-1 p24 Ag and/or HIV-1/HIV-2 Ab not detected.A test result that is nonreactive does not exclude thepossibility of exposure to or infection with HIV-1 and/orHIV-2. Nonreactive results in this assay for individualswith prior exposure to HIV-1 and/or HIV-2 may be due toantigen and antibody levels that are below the limit ofdetection of this assay.The TransactivniAddThis HIV Ag/Ab Combo assay result andsupplemental assay results should be interpreted inconjunction with the patient's clinical presentation,history and other laboratory results. If the results areinconsistent with clinical evidence, additional testing issuggested to confirm the result. Blood Venous blood specimen / Unknown 03/27/2025 9:08 AM EDT 03/27/2025 2:41 PM EDT us David Bynum MD LAB BLOOD ORDERABLES Final Result [facility] [address] [place] [address] [phone] * POCT Glucose (03/26/2025 4:14 PM EDT) Only the most recent of3 resultswithin the time period is included. Glucose Blood, POC 140 60 - 200 mg/dL QC Media Lot # [id number] Lot# Expiration Date [id number] Blood Capillary blood specimen / Unknown 03/26/2025 4:14 PM EDT David Bynum MD POINT OF CARE TEST ENTER/ED IT ORDERABLES Final Result * Clostridium difficile EIA (01/14/2025) Stool Rectal contents / Unknown Sally Pereira [facility] MICROBIOLOGY - GENERAL ORD ERABLES Final Result Performing Organization Address City/[facility] Co de Phone Number EXTERNAL LAB * XR ABDOMEN COMP INC DECUB AND/OR ERECT (01/01/2025 11:55 AM EDT) Anatomical Region Laterality Modality Abdomen Radiographic Agnes ging Historical Provider IMG XR PROCEDURES Final R esult * POCT HGB A1C (12/31/2024 4:26 PM EDT) Hemoglobin A1C 5.7 4.0 - 6.0 % QC Media Lot # [id number] Lot# Expiration Date [id number] Blood 12/31/2024 4:26 PM EDT Sally AMOS POINT OF CARE TEST ENTER/EDIT ORDERABLES Final Result * Hm Diabetes Eye Exam (12/31/2024 9:53 AM EDT) Historical Provider HEALTH MAINTENANCE Final Result * BI Mammogram Screening Tomosynthesis Bilateral (04/20/2023 12:52 PM EDT) Anatomical Region Laterality Modality Breast Bilateral Mammography 04/20/2023 12:5 2 PM EDT Narrative 05/09/2023 1:00 PM EDT [facility] [address] [place] [address] Mammography Report Signed Patient: Alton Jimenez MR#: [id number] : 1980 Acct:[id number] Age/Sex: 43 / F ADM Date: 04/20/23 Loc: HO.MAMMO Attending Dr: David Bynum MD Ordering Physician: David Bynum MD Results: 1 Negative Date of Service: 04/20/23 Follow Up: 1 Year From Orig inal Mammogram Procedure(s): MM tomosynthesis screening BI Accession Number(s): [id number] cc: David Bynum MD EXAMINATION: MM SCREENING [...] in OV> 05/09/23 1257 DD/ 1252 TD/TT: Entry Level Receptionist: Procedure Note Donotuseinterpreter, Image - 10/10/2023 [facility] [address] [place] [address] [place] [address] Mammography Report Signed Patient: Ronda Jimenez#: [id number] : 1980Acct:[id number] Age/Sex: 43 / FADM Date: 04/20/23 Loc: HO.MAMMO Attending Dr: David Bynum MD Ordering Physician: David Bynum MDResults: 1 Negative Date of Service: 04/20/23Follow Up: 1 Year From Orig ina Mammogram Procedure(s): MM tomosynthesis screening BI Accession Number(s): [id number] cc: David Bynum MD EXAMINATION: MM SCREENING [...] in OV> 05/09/23 1257 DD/ 1252 TD/TT: Entry Level Receptionist: David Bynum MD IMG BI PROCEDURES Final Res ult * (ABNORMAL) LIPID PANEL (06/17/2021 8:53 AM [...] liver disease. LDL Cholesterol Calculated 112 mg/dl [facility] Comment: Desirable LDL: less than [...] >60 [facility] Comment: NOTE: For -Kittitian individuals, multiply the result by 1.210. Chronic [...] Binding Capacity 361 228 - 428 mcg/dL [facility] Unsaturated Iron Binding 271 ug/dL [facility] C Reactive Protein 0.49 < or = 0.50 mg/dL [facility] Vitamin D 25-OH Total 13.6 >30 ng/mL [facility] Comment: Health Based Reference Values* [...] Free T4 0.91 0.32 - 4.0 uIU/mL [facility] Insulin 46(H) 2 - 29 uU/mL [facility] Comment: This test was performed [...] Historical Provider HISTORICAL/NON ORDERABLE LABS Final Result [facility] [address] * THINPREP PAP (10/06/2020 12:09 PM EST) Clinical Information: None given [facility] COMMENT SEE COMMENT [facility] [...] along with historic and current clinical information. Resident Assistant : SEE COMMENT [facility] Comment: RK, CT(ASCP) CT screening location: [address] [address] Interpretation/R esult: Negative for intraepithelial lesion or malignancy. [facility] LMP: NONE GIVEN [facility] Prev. BX: NONE GIVEN [facility] Prev. PAP: NONE GIVEN [facility] SOURCE: None given [facility] Statement Of Adequacy: SEE COMMENT [facility] Comment: Satisfactory for evaluation. Endocervical/transformation zone component absent. Age and/or menstrual status not provided 10/06/2020 12:0 9 PM EST Elana DE DIOS LAB PATHOLOGY ORDERABLES Final Result Performing Organization Address [facility] de Phone Number [facility] [address] * HPV mRNA E6/E7 (10/06/2020 12:09 PM EST) HPV nRNA E6/E7 Not Detected Not Detected [facility] Comment: Methodology: Extrusion Die Corrector-Mediated Amplification This assay detects E6/E7 viral messenger RNA (mRNA) from 14 high-risk HPV types (16,18,31,33,35,39,45,51,52,56,58,59,66,68). The analytical performance characteristics of this assay have been determined by [employer]. The modifications have not been cleared or approved by the FDA. This assay has been validated pursuant to the CLIA regulations and is used for clinical purposes. For additional information, please refer to http://education.Gig[employer].sendwithus/faq/AXQ638x8 (This link if provided for information/ educational purposes only.) 10/06/2020 12:0 9 PM EST Elana Patricio [facility] LAB BLOOD ORDERABLES Karine l Result Performing Organization Address [facility] de Phone Number [facility] [address] [place] [address], * ALBUMIN, RANDOM URINE W/CREATININE (07/07/2020 8:56 AM EST) Pathologist [facility] Microalbumin Urine 2.8 See Note: mg/dL [facility] [...] Bynum MD LAB URINE ORDERABLES Final Result [facility] [address] from Last 3 Months or Most Recently Relevant to Health Maintenance [place] [address] [address] C3 Care Teams Linen Folder Relationship Specialty Start Date End Date David Bynum MD [address] [place] [phone] PCP - General Internal Medicine 09/22/17
--- OUTSIDE RECORDS SUMMARY | 2025-04-01 15:25 | XMS_ITS | Encounter Summary ---
Author Organization [facility] Address [address] [facility] [address] [place] [phone] Phone Care Team Providers Care Car Examiner Name Role Phone David Bynum MD Primary Care Pr ovider Hero Baltazar MD Unavailable [phone] Encounter Details Date Type Department Care Team (Late st Contact Info) Description 11/19/2018 Procedure Pass [facility] Imaging [address] [place] [address] Social History Tobacco Use Types Packs/Day Years [...] Description 07/14/2025 1:30 PM EST Office Visit [facility] [address] [place] [address], [address] [address] Corby Sanchez MD [address] [place] [phone] [email or web address] documented as of this encounter Visit Diagnoses Not on filedocumented in this encounter Care Teams Car Examiner Relationship Specialty Start Date End Date BeDavid jones MD [address] [address] PCP - General Internal Medicine 05/23/18 Hero Baltazar MD [address] [place] [phone] [email or web address] Radiation Oncology 11/28/18 documented as of this encounter Additional Source Comments The information contained in this document represents components of the legal health record. It is not the complete legal health record.[facility]
--- OUTSIDE RECORDS SUMMARY | 2025-04-01 15:26 | XMS_ITS | Encounter Summary ---
Author Organization [employer] Address [address] [address] Care Team Providers Care Iron Melter Name Role Phone David Bynum MD Primary Care Provider [phone]- [phone] Reason for Visit * Reason Onset Date Comments Nurse Triage 12/20/2023 Encounter Details Date Type Department Care Team ([facility] st Contact Info) Description 12/20/2023 Telephone [facility] MEDICINE [address] [place] [address] David Bynum MD 505 [place] [address] Nurse Triage Social History Tobacco Use Types [...] appeared after taking unknown abx bought in [place]. Pt states when she stopped taking this med, symptoms resolved. Pt denies any current symptoms pt was c/o last week. Pt advised if symptoms return to go to ED. Pt agrees with plan. * Telephone Encounter - Shana Meyer LPN - 12/20/2023 11:25 AM EDT Triage call returned to patient with [place] wash driller [id number]. Patient reports that she has chestpain right [...] plan. Will seek cardiac evaluation at either [facility] or [facility] ED.Reviewed with pt to contact PCP office after ER evaluation for follow up appt. Pt verbalized understanding and agrees. Team messaged with patient disposition. Protocol Used: Chest Pain (Adult) Protocol-Based Disposition: Go to ED/C Now (or to Office with PCP Approval) [...] nurse or provider NOW! Reason: Trouble breathing Macedonian Speaker (Accepted wash driller) documented in this encounter Plan of Treatment Upcoming Encounters Date Type Department Care Team (Late st Contact Info) Description 05/09/2025 2:30 PM EDT Office Visit [facility] MED & PEDS [address] [place] [address] David Bynum MD 505 [place] [address] documented as of this encounter Visit Diagnoses Not on filedocumented in this encounter Additional Health Concerns Assessment Noted Time PHQ-9 Depression Total Score: 5 08/30/19 23 4:09 PM EST documented as of this encounter Care Teams Iron Melter Relationship Specialty Start Date End Date David Bynum MD 505 [place] [address] PCP - General Internal Medicine 09/22/17 documented as of this encounter
--- OUTSIDE RECORDS SUMMARY | 2025-04-01 15:26 | XMS_ITS | Encounter Summary ---
Author Organization [facility] Address [address] [place] [address] Phone Care Team Providers Care Leather Repairer Name Role Phone David Bynum MD Primary Care Pr ovider Hero Baltazar MD Unavailable [phone] Encounter Details Date Type Department Care Team (Late st Contact Info) Description 08/06/2021 Procedure Pass MRI, [facility] Imaging - [place] [address] [place] [address] Social History Tobacco Use Types Packs/Day Years [...] Description 07/14/2025 1:30 PM EST Office Visit [address], [address] [place] [address] Corby Sanchez MD [address] [place] [address], [address] [place] [address] [email or web address] documented as of this encounter Visit Diagnoses Not on filedocumented in this encounter Care Teams Leather Repairer Relationship Specialty Start Date End Date David Bynum MD [address] [address] PCP - General Internal Medicine 05/23/18 Hero Baltazar MD [address] [place] [address] [email or web address] Radiation Oncology 11/28/18 documented as of this encounter Additional Source Comments The information contained in this document represents components of the legal health record. It is not the complete legal health record.[facility]
--- OUTSIDE RECORDS SUMMARY | 2025-04-01 15:26 | XMS_ITS | Encounter Summary ---
Author Organization [employer] Address [address] [place] [address] Care Team Providers Care Band Instrument Repairer Name Role Phone David Bynum MD Primary Care Provider [phone] Encounter Details Date Type Department Care Team ([facility] Contact Info) Description 03/09[facility]23 [email or web address] [address] [place], [place] [phone] David Bynum MD [address] [place], [place] [phone] Social History Tobacco Use Types Packs/Day Years [...] Upcoming Encounters Date Type Department Care Team ([facility] Contact Info) Description 05/09/2025 2:30 PM EDT Office Visit [facility] CHC MED & PEDS [address] [place], [place] [phone] David Bynum MD [address] [place] [address] documented as of this encounter Visit Diagnoses Not on filedocumented in this encounter Additional Health Concerns Assessment Noted Time PHQ-9 Depression Total Score: 5 08/30/19 23 4:09 PM EST documented as of this encounter Care Teams Band Instrument Repairer Relationship Specialty Start Date End Date David Bynum MD [address] [place] [address] PCP - General Internal Medicine 09/22/17 documented as of this encounter
--- OUTSIDE RECORDS SUMMARY | 2025-04-01 15:26 | XMS_ITS | Encounter Summary ---
Author Organization [facility] Address [address] [place] [address] Phone Care Team Providers Care Bioinformatics Computer Scientist Name Role Phone David Bynum MD Primary Care Pr ovider Hero Baltazar MD Unavailable [phone] Encounter Details Date Type Department Care Team (Late st Contact Info) Description 02/06/2019 Procedure Pass MRI, [facility] Imaging - [place] [address] [place] [address] Social History Tobacco Use Types Packs/Day Years [...] Description 07/14/2025 1:30 PM EST Office Visit [address], [address] [place] [address] Corby Sanchez MD [address] [place] [address], [address] [place] [address] [email or web address] documented as of this encounter Visit Diagnoses Not on filedocumented in this encounter Care Teams Bioinformatics Computer Scientist Relationship Specialty Start Date End Date David Bynum MD [address] [address] PCP - General Internal Medicine 05/23/18 Hero Baltazar MD [address] [place] [address] [email or web address] Radiation Oncology 11/28/18 documented as of this encounter Additional Source Comments The information contained in this document represents components of the legal health record. It is not the complete legal health record.[facility]
--- OUTSIDE RECORDS SUMMARY | 2025-04-01 15:26 | XMS_ITS | Encounter Summary ---
Author Organization [employer] Address [address] [address] Care Team Providers Care Heel Burnisher Name Role Phone David Bynum MD Primary Care Provider [phone] Reason for Visit * Reason Onset Date Comments Referral 02/24/2025 Encounter Details Date Type Department Care Team (Late st Contact Info) Description 02/24/2025 Telephone [facility] MEDICINE 230 [place] [address] David Bynum MD [address] [place] [address] Referral Social History Tobacco Use Types Packs/Day [...] Evaluate and treat Sleep Medicine Services Location: [address] [place] [address] 2nd Floor [address] [place] [address] Who are scheduling out for mid to end of April. Pt contacted a different office who would be ableto see her sooner. Pt would like referral modified so she can see : Dr Rosemary Lopez ( neurologist ) [address] [facility] (P) [phone] documented in this encounter Plan of Treatment Upcoming Encounters Date Type Department Care Team ([facility] st Contact Info) Description 05/09/2025 2:30 PM EDT Office Visit [facility] MED & PEDS [address] [place] [address] David Bynum MD [address] [place] [address] documented as of this encounter Visit Diagnoses Not on filedocumented in this encounter Additional Health Concerns Assessment Noted Time PHQ-9 Depression Total Score: 0 06/13/20 24 9:57 AM EST documented as of this encounter Care Teams Heel Burnisher Relationship Specialty Start Date End Date David Bynum MD [address] [place] [address] PCP - General Internal Medicine 09/22/17 documented as of this encounter
--- OUTSIDE RECORDS SUMMARY | 2025-04-01 15:26 | XMS_ITS | Encounter Summary ---
Author Organization [employer] Address [address] [place] [address] [place] [address] Care Team Providers Care Venetian Blind Tape Cutter Name Role Phone David Bynum MD Primary Care Provider [phone]- [phone] Reason for Referral * Imaging (Routine) - Closed Specialty Diagnoses / Procedures Referred By Contac t Referred To Contact Radiology Diagnoses Intervertebral disc stenosis of neural canal of lumbar region Procedures MR Lumbar Spine w/o Contrast David Bynum MD [address] [place] [address] Phone: tel: fax: [facility] Referral ID Status Reason Start Date Expiration Date Visits Re quested Visits Authorized [id number] Closed 10/16/2023 10/15/2024 1 1 Encounter Details Date Type Department Care Team (Late st Contact Info) Description 10/16/2023 Orders Only [facility] CHC MED & PEDS [address] [place] [address] David Bynum MD [address] [place] [address] Intervertebral disc stenosis of neural canal of [...] Upcoming Encounters Date Type Department Care Team ([facility] st Contact Info) Description 05/09/2025 2:30 PM EDT Office Visit [facility] MED & PEDS [address] [place] [address] David Bynum MD [address] [place] [address] documented as of this encounter Procedures Procedure [...] documented as of this encounter Care Teams Venetian Blind Tape Cutter Relationship Specialty Start Date End Date David Bynum MD [address] [place] [address] PCP - General Internal Medicine 09/22/17 documented as of this encounter
--- OUTSIDE RECORDS SUMMARY | 2025-04-01 15:26 | XMS_ITS | Encounter Summary ---
Author Organization [employer] Address [address] [place] [address] [address] [place] [address] Care Team Providers Care Workers Compensation Attorney Name Role Phone David Bynum MD Primary Care Provider [phone] Encounter Details Date Type Department Care Team ([facility] Contact Info) Description 12/13/2022 Orders Only [facility] MED & PEDS [address] [place] [address] Gillian Balderrama LPN Social History Tobacco Use [...] Upcoming Encounters Date Type Department Care Team ([facility] Contact Info) Description 05/09/2025 2:30 PM EDT Office Visit [facility] MED & PEDS [address] [place] [address] David Bynum MD 505 [place] [address] documented as of this encounter Visit Diagnoses Not on filedocumented in this encounter Additional Health Concerns Assessment Noted Time PHQ-9 Depression Total Score: 5 08/30/19 23 4:09 PM EST documented as of this encounter Care Teams Workers Compensation Attorney Relationship Specialty Start Date End Date David Bynum MD 505 [place] [address] PCP - General Internal Medicine 09/22/17 documented as of this encounter
--- OUTSIDE RECORDS SUMMARY | 2025-04-01 15:26 | XMS_ITS | Encounter Summary ---
Author Organization [employer] Address 75 [facility] 7 [place] [address] Care Team Providers Care Big Data Admin Name Role Phone David Bynum MD Primary Care Provider [phone] Encounter Details Date Type Department Care Team ([facility] st Contact Info) Description 01/15/2025 Orders Only [facility] Information Management [address] [place] [address] ProviderNoa MD Social History Tobacco Use Types [...] Description 05/09/2025 2:30 PM EDT Office Visit [facility] MED & PEDS 505 [place] [address] David Bynum MD [address] [place] [address] documented as of this encounter Procedures Procedure Name Priority Date/Time Associated Diagnosis Comments XR ABDOMEN COMP INC DECUB AND/OR ERECT Routine 01/01/2025 11:55 AM EDT documented in this encounter Results * XR ABDOMEN COMP INC DECUB AND/OR ERECT (01/01/2025 11:55 AM EDT) Anatomical Region Laterality Modality Abdomen Radiographic Agnes ging Historical Provider MD ROJAS XR PROCEDURES Final R esult documented in this encounter Visit Diagnoses Not on filedocumented in this encounter Additional Health Concerns Assessment Noted Time PHQ-9 Depression Total Score: 0 06/13/20 24 9:57 AM EST documented as of this encounter Care Teams Big Data Admin Relationship Specialty Start Date End Date David Bynum MD [address] [place] [address] PCP - General Internal Medicine 09/22/17 documented as of this encounter
--- OUTSIDE RECORDS SUMMARY | 2025-04-01 15:26 | XMS_ITS | Encounter Summary ---
Author Organization [employer] Address 75 [facility] 7t [place] [address] Care Team Providers Care Production Material Coordinator Name Role Phone David Bynum MD Primary Care Provider [phone] Encounter Details Date Type Department Care Team ([facility] st Contact Info) Description 01/10/2025 Orders Only [facility] CHC MED & PEDS [address] [place] [address] Provider, MD Noa Social History Tobacco Use [...] 05/09/2025 2:30 PM EDT Office Visit [facility] MED & PEDS 505 [place] [address] David Bynum MD 505 [place] [address] documented as of this encounter Procedures Procedure Name Priority Date/Time Associated Diagnosis Comments DIABETES EYE EXAM Routine 12/31/2024 9:53 AM EDT documented in this encounter Results * Diabetes Eye Exam (12/31/2024 9:53 AM EDT) Historical Provider HEALTH MAINTENANCE Final Result documented in this encounter Visit Diagnoses Not on filedocumented in this encounter Additional Health Concerns Assessment Noted Time PHQ-9 Depression Total Score: 0 06/13/20 24 9:57 AM EST documented as of this encounter Care Teams Production Material Coordinator Relationship Specialty Start Date End Date David Bynum MD [address] [place] [address] PCP - General Internal Medicine 09/22/17 documented as of this encounter
--- OUTSIDE RECORDS SUMMARY | 2025-04-01 15:26 | XMS_ITS | Encounter Summary ---
Author Organization [employer] Address [address] [address] Care Team Providers Care Lace Roller Operator Name Role Phone David Bynum MD Primary Care Provider [phone] Reason for Visit * Reason Onset Date Comments Referral 12/26/2024 Encounter Details Date Type Department Care Team ([facility] st Contact Info) Description 12/26/2024 Telephone [facility] MEDICINE [address] [place] [address] David Bynum MD [address] [place] [address] Referral Social History Tobacco Use Types Packs/Day [...] referral : DATE: n/a TIME: n/a Address: [address] [place] [address] [address], [place] [address] Visits: 2 x Year Facility Name: Type of Specialist: Neurologist DX: Sleep omnia Provider : Dr. Rosemary Lopez Provider NPI : [phone] Facility NPI: [id number] Phone # : n/a Fax #: n/a Pt stated that , advised that the referral needs to say that she was seen once before in 2020, needs to be send as Follow up. documented in this encounter Plan of Treatment Upcoming Encounters Date Type Department Care Team ([facility] st Contact Info) Description 05/09/2025 2:30 PM EDT Office Visit [facility] CHC MED & PEDS [address] [place] [address] David Bynum MD [address] [place] [address] documented as of this encounter Visit Diagnoses Not on filedocumented in this encounter Additional Health Concerns Assessment Noted Time PHQ-9 Depression Total Score: 0 06/13/20 24 9:57 AM EST documented as of this encounter Care Teams Lace Roller Operator Relationship Specialty Start Date End Date David Bynum MD [address] [place] [address] [place] [address] PCP - General Internal Medicine 09/22/17 documented as of this encounter
--- OUTSIDE RECORDS SUMMARY | 2025-04-01 15:26 | XMS_ITS | Encounter Summary ---
Author Organization [employer] Address 75 [facility] [address] [place] [address] Care Team Providers Care Stock Holder Name Role Phone David Bynum MD Primary Care Provider [phone]- [phone] Encounter Details Date Type Department Care Team ([facility] st Contact Info) Description 01/10/2025 Orders Only [facility] CHC MED & PEDS [address] [place], [place] [phone] David Bynum MD [address] [place] [address] Diarrhea, unspecified type (Primary Dx); Normocytic anemia [...] 2:30 PM EDT Office Visit [facility] MED & PEDS [address] [place] [address] David Bynum MD [address] [place] [address] documented as of this encounter Procedures Procedure Name Priority Date/Time Associated Diagnosis Comments CBC WITH AUTO DIFFERENTIAL Routine 01/14/2025 Diarrhea, unspecified type documented in this encounter Results * CBC auto differential (01/14/2025) Blood Venous blood specimen / Unknown David Bynum MD LAB BLOOD ORDERABLES Final Result [facility] [address] [place] [address] [phone] documented in this encounter Visit Diagnoses Diagnosis Diarrhea, unspecified type- Primary Normocytic anemia Unspecified anemia documented in this encounter Additional Health Concerns Assessment Noted Time PHQ-9 Depression Total Score: 0 06/13/20 24 9:57 AM EST documented as of this encounter Care Teams Stock Holder Relationship Specialty Start Date End Date David Bynum MD [address] [place] [address] PCP - General Internal Medicine 09/22/17 documented as of this encounter
--- OUTSIDE RECORDS SUMMARY | 2025-04-01 15:26 | XMS_ITS | Encounter Summary ---
Author Organization [employer] Address [address] [address] Care Team Providers Care Sales Lead Name Role Phone David Bynum MD Primary Care Provider [phone]- [phone] Reason for Visit * Reason Onset Date Comments PT1 08/27/2024 Encounter Details Date Type Department Care Team ([facility] Contact Info) Description 08/27/2024 Telephone [facility] CHC MED & PEDS [address] [place], [place] [phone] David Bynum MD 505 [place] [address] PT1 Social History Tobacco Use Types Packs/Day [...] facility name: [facility] Facility Address: [address] [place] [address] Escort needed: Y/N: Yes Do you have a wheelchair: Y/N: No If yes- Manual or electric: Visits: 1-2 times a month for 6 months Date of appt 09/17/24 at 8 am documented in this encounter Plan of Treatment Upcoming Encounters Date Type Department Care Team ([facility] st Contact Info) Description 05/09/2025 2:30 PM EDT Office Visit [facility] MED & PEDS [address] [place] [address] David Bynum MD [address] [place] [address] documented as of this encounter Visit Diagnoses Not on filedocumented in this encounter Additional Health Concerns Assessment Noted Time PHQ-9 Depression Total Score: 0 06/13/20 24 9:57 AM EST documented as of this encounter Care Teams Sales Lead Relationship Specialty Start Date End Date David Bynum MD [address] [place] [address] PCP - General Internal Medicine 09/22/17 documented as of this encounter
--- OUTSIDE RECORDS SUMMARY | 2025-04-01 15:26 | XMS_ITS | Encounter Summary ---
Author Organization [employer] Address [address] [place] [address] Care Team Providers Care Customer Loyalty Representative Name Role Phone David Bynum MD Primary Care Provider [phone]- [phone] Reason for Visit * Reason Onset Date Comments Referral 04/07/2023 Encounter Details Date Type Department Care Team ([facility] st Contact Info) Description 04/07/2023 Telephone [facility] CHC MED & PEDS [address] [place], [place] [phone] David Bynum MD [address] [place] [address] Referral Social History Tobacco Use Types Packs/Day [...] 1:18 PM EDT referral # faxed to [employer] * Telephone Encounter - Latoya Vuong - 04/07/2023 1:11 PM EDT Tc from pt requesting renewal of referral. Location: [address] Date: n/a Time: n/a Fax: n/a Specialty: orthopedics (knee) documented in this encounter Plan of Treatment Upcoming Encounters Date Type Department Care Team (Late st Contact Info) Description 05/09/2025 2:30 PM EDT Office Visit [facility] CHC MED & PEDS [address] [place] [address] David Bynum MD [address] [place] [address] documented as of this encounter Visit Diagnoses Not on filedocumented in this encounter Additional Health Concerns Assessment Noted Time PHQ-9 Depression Total Score: 5 08/30/19 23 4:09 PM EST documented as of this encounter Care Teams Customer Loyalty Representative Relationship Specialty Start Date End Date David Bynum MD [address] [place] [address] PCP - General Internal Medicine 09/22/17 documented as of this encounter
--- OUTSIDE RECORDS SUMMARY | 2025-04-01 15:26 | XMS_ITS | Encounter Summary ---
Author Organization [employer] Address [address] [address] Care Team Providers Care Bi Manager Name Role Phone David Bynum MD Primary Care Provider +1- [phone] Reason for Visit * Reason Onset Date Comments Appointment Request 12/26/2024 Encounter Details Date Type Department Care Team ([facility] st Contact Info) Description 12/26/2024 Telephone [facility] MEDICINE [address] [place] [address] David Bynum MD [address] [place] [address] Appointment Request Social History Tobacco Use Types [...] housing situation today? I have bucky sing 03/26/[address] you li [...] Upcoming Encounters Date Type Department Care Team ([facility] st Contact Info) Description 05/09/2025 2:30 PM EDT Office Visit [facility] MED & PEDS [address] [place] [address] David Bynum MD [address] [place] [address] documented as of this encounter Visit Diagnoses Not on filedocumented in this encounter Additional Health Concerns Assessment Noted Time PHQ-9 Depression Total Score: 0 06/13/20 24 9:57 AM EST documented as of this encounter Care Teams Bi Manager Relationship Specialty Start Date End Date David Bynum MD [address] [place] [address] PCP - General Internal Medicine 09/22/17 documented as of this encounter
== END 2025-04-01 14:11 | disposition home or self-care (01) ==
LOC: HO.HHCLNP 14:10
PROVIDERS: Visit Provider Internal Medicine
DX: Z11.3 Encounter for screening for infections with a predominantly sexual mode of transmission (principal)
CPT/HCPCS: 81001

== ENCOUNTER 2025-04-25 13:25 | Outpatient (REF) | payer MEDICAID, SELFPAY ==
--- OUTSIDE RECORDS SUMMARY | 2025-04-25 14:43 | XMS_ITS | Clinical Summary ---
Author Organization [employer] Address [address] [place] [address] 7 [place] [address] Care Team Providers Care Merchandising Lead Name Role Phone David Bynum MD Primary Care Provider [phone] Allergies Active Allergy Reactions Criticality Noted Date Comments Insulin Glargine 03/26/2022 Latex 12/13/2021 Other reaction(s): skin irritation Sulfa Antibiotics Shortness of breath High 7 Other reaction(s): airway closes , DIFF BREATHING Medications furosemide (Lasix) 20 MG tablet Take 1 tablet by mouth at bed time. 2 Active hydroCHLOROthiazi de (HYDRODiuril) 12.5 MG tablet Take 12.5 mg [...] bed time. 2 Active hydrocortisone 2.5 % creamIndications: Erythema intertrigo APPLY TO THE INGUINAL AND ABDOMINAL FOLDS TWICE DAILY FOR A WEEK 30 g 1 3 Active loratadine (Claritin) 10 MG tablet take 1 tablet by oral route every day 1 Active ibuprofen 600 MG tablet Take 1 tablet (600 mg) by mouth every 8 (eight) hours if needed for mild pain or moderate pain. 90 tablet 1 3 Active lidocaine (Lidoderm) 5 % patchIndications: Intervertebral disc stenosis of neural canal of lumbar region Apply 1 patch topically in the morning. Remove & discard patch within 12 hours or as directed by . 30 patch 3 4 Active Diclofenac Sodium 1 % gelIndications:In tervertebral disc stenosis of neural canal of lumbar region To apply to the affected area 4 times a day 100 g 3 4 Active metoprolol succinate XL (Toprol-XL) 200 MG 24 hr tabletIndications :Primary hypertension TAKE 1 TABLET(200 MG) BY MOUTH IN THE MORNING 90 tablet 3 4 Active metFORMIN XR (Glucophage-XR) 500 MG 24 hr tablet TAKE 2 TABLETS BY MOUTH EVERY DAY WITH THE EVENING MEAL 60 tablet 11 4 Active glucose blood (FREESTYLE LITE) test strip USE TO TEST BLOOD SUGAR THREE TIMES DAILY 100 strip 11 4 Active gabapentin (Neurontin) 100 MG capsuleIndication s:Cervical radiculopathy TAKE 1 CAPSULE(100 MG) BY MOUTH EVERY 8 HOURS 90 capsule 4 Active FreeStyle lancets 1 each by Other route 2 times daily. 100 each 11 5 Active sodium chloride (Titus Nasal [place]) 0.65 % nasal spray Administer 1 spray into each nostril if needed for congestion. 30 mL 12 5 01/01/20 26 Active ferrous sulfate (Fe Tabs) 325 (65 Fe) MG EC tabletIndications :Normocytic anemia Take 1 tablet (325 mg) by mouth with breakfast. Do not crush, chew, or split. 30 tablet 11 5 01/16/20 26 Active acetaminophen (Mapap Arthritis Pain) 650 MG ER tablet Take 1 tablet (650 mg) by mouth every 8 (eight) hours if needed for mild pain. Do not crush, chew, or split.TAKE 1 TABLET BY MOUTH EVERY 8 HOURS NEEDED FOR PAIN OR FEVER 60 tablet 5 Active Active Problems Problem Noted Date Diagnosed [...] Encounters Date Type Department Care Team Description 04/21/2025 Results Follow-Up [facility] [address] [place] [address] Carmencita Boyd RN Urinalysis, Complete, with Reflex to Culture 04/18/2025 Orders Only [facility] 505 [facility] [place] Ashleigh Vogel [phone] David Bynum MD Dysuria (Primary Dx) 04/08/2025 Telephone [facility] [place] Ash[place] Vogel [phone] Street MD 04/04/2025 Telephone [facility] 505 [facility] [place] Ash[place] Vogel [phone] Rojas MD 04/01/2025 Orders Only [facility] [place] [phone] Rojas MD 03/28/2025 Orders Only [facility] 505 [facility] [place] Ashleigh Vogel [phone] Street MD Pancytopenia ([facility]) (Primary Dx) 03/26/2025 3:15 PM EDT Office Visit [facility] [place] Ash[place] Vogel [phone] Street MD Other dysphagia (Primary Dx); Hoarseness; Controlled type 2 diabetes mellitus without complication, without long-term current use of insulin ([facility]); Routine screening for STI (sexually transmitted infection); Epistaxis; Multinodular goiter 03/26/2025 Travel 03/25/2025 Telephone [facility] [address] [place] [address] David Bynum MD chart prep 03/06/[address] [address] David Bynum MD Referral 03/06/[address] [address] David Bynum MD 02/24/[address] [address] David Bynum MD Referral 02/11/[address] [address] David Bynum MD Nurse Triage 01/28/[address] [address] David Bynum MD Nurse Triage from Last 3 Months Immunizations Immunization Administration [...] 2:30 PM EDT Office Visit [facility] [address] [place] [address] David Bynum MD [address] [place] [address] Health Maintenance Due Date Last Done Comments Family Planning (PISQ) 1997 HPV Vaccines (1 - 3-dose series) 1997 Hepatitis B Vaccines (1 of 3 - 19+ 3-dose series) 2001 Diabetes: Urine Protein Screening 07/07/2021 07/07/2020 Lipid Panel 06/17/2022 06/17/2021, 07/07/2020 COVID-19 Vaccine ( season) 2025 Influenza Vaccine [...] Name Priority Date/Time Associated Diagnosis Comments US THYROID Routine 04/15/2025 Other dysphagia Hoarseness URINALYSIS, COMPLETE, WITH REFLEX TO CULTURE Routine [...] complication, without long-term current use of insulin ([facility]) POCT GLYCATED HEMOGLOBIN, TOTAL Routine 12/31/2024 4:26 [...] Relevant to Health Maintenance Results * US Thyroid (04/15/2025) Anatomical Region Laterality Modality Head, Neck Ultrasound us David Bynum MD IMG US PROCEDURES Final Res ult * (ABNORMAL) Urinalysis, Complete, with Reflex to Culture (04/01/2025 8:55 AM EDT) Color Urine Yellow [facility] Appearance Urine Clear [facility] PH 6.0 5.0 - 9.0 [facility] Glucose Urine UA Negative Negative mg/dL [facility] Urine Blood Trace(A) Negative [facility] Specific [place] - Urine 1.020 1.005 - 1.025 [facility] Urine Protein Negative Neg-Trace mg/dL [facility] Urine Ketones Negative Negative mg/dL [facility] Nitrite Urine Negative Negative [facility] Leukocyte Esterase Urine Negative Negative [facility] RBC Urine 0-2 0 - 2 /HPF [facility] Urine WBC 0-5 0 - 5 /HPF [facility] Urine Squamous Epithelial Cell 0-2 0 - 2 /HPF [facility] Urine Bacteria None Seen None Seen [facility] Hyaline Casts, Urine 0-2 0 - 2 /LPF [facility] 04/01/2025 8:55 AM EDT 04/01/2025 2:11 PM EDT Narrative [facility] - 04/01/2025 2:23 PM EDT Urine, Clean Catch David Bynum MD LAB URINE ORDERABLES Final Result [facility] [address] [place] [address] [phone] * (ABNORMAL) CBC auto differential (03/27/2025 9:08 AM EDT) White Blood Count 4.4(L) 4.8 - 10.8 X10*3/uL [facility] Red Blood Count 3.94(L) 4.20 - 5.50 X10*6/uL [facility] Hemoglobin 11.9(L) 12.0 - 16.0 g/dl [facility] Hematocrit 35.9(L) 37.0 - 47.0 % [facility] Mean Corpuscular Volume 91.1 80.0 - 98.0 fL [facility] Mean Corpuscular Hemoglobin 30.2 27.0 - 33.0 pg [facility] Mean Corpuscular HGB Conc 33.1 31.0 - 35.0 g/dl [facility] Red Cell Distribution Width 12.6 11.0 - 16.0 % [facility] Platelet Count 111(L) 160 - 400 X10*3/uL [facility] Mean Platelet Volume 11.4 9.4 - 12.3 fL [facility] Neutrophils Percent Auto 42.9(L) 45 - 73 % [facility] Imm Gran Pct Auto 0.2 0.0 - 0.4 % [facility] Lymphocytes Percent Auto 50.1(H) 20 - 40 % [facility] Monocytes Percent Auto 5.6 2 - 11 % [facility] Eosinophils Percent Auto 0.7 0 - 4 % [facility] Basophils Percent Auto 0.5 0 - 2 % [facility] NRBC Pct Auto 0.5(H) 0.0 - 0.2 /100WBC [facility] Neutrophils Absolute Auto 1.9(L) 2.0 - 8.3 x10*3/uL [facility] Imm Gran Abs Auto 0.01 0.00 - 0.03 X10*3/uL [facility] Lymphocytes Absolute Auto 2.2 1.2 - 4.9 X10*3/uL [facility] Monocytes Absolute Auto 0.3 0.1 - 1.2 X10*3/uL [facility] Eosinophils Absolute Auto 0.0 0.0 - 0.4 X10*3/uL [facility] Basophils Absolute Auto 0.0 0.0 - 0.2 X10*3/uL [facility] NRBC Abs Auto 0.020(H) 0.0 - 0.012 X10*3/uL [facility] Blood Venous blood specimen / Unknown 03/27/2025 9:08 AM EDT 03/27/2025 2:41 PM EDT David yBnum MD LAB BLOOD ORDERABLES Final Result [facility] [address] [place] [phone] * Hepatitis C Antibody with Reflex to HCV, RNA, Quantitative, Real-Time PCR (03/27/2025 9:08 AM EDT) Hepatitis C Antibody Nonreactive Nonreactive [facility] Comment:Antibodies to HCV no t detected; does not exclude early acuteHCV infection. Blood Venous blood specimen / Unknown 03/27/2025 9:08 AM EDT 03/27/2025 2:41 PM EDT David Bynum MD LAB BLOOD ORDERABLES Final Result [facility] [address] [place] [address] [phone] * RPR (Monitor) with Reflex to??Titer (03/27/2025 9:08 AM EDT) RPR (Monitor) w/Refl Titer NON-REACTI VE NON-REACT DEDE [facility] Comment:THIS TEST WAS PERFOR MED AT:[employer] [place] [id number] STAPLES MD Rapid Plasma Reagin Ab Titer TNP [facility] Blood Venous blood specimen / Unknown 03/27/2025 9:08 AM EDT 03/27/2025 2:41 PM EDT David Bynum MD LAB BLOOD ORDERABLES Final Result [facility] [address] [place] [address] [phone] * HIV-1/2 Antigen and Antibodies, Fourth Generation, with Reflexes (03/27/2025 9:08 AM EDT) HIV AB/AG Nonreactive Nonreactive [facility] Comment:HIV-1 p24 Ag and/or HIV-1/HIV-2 Ab not detected.A test result that is nonreactive does not exclude thepossibility of exposure to or infection with HIV-1 and/orHIV-2. Nonreactive results in this assay for individualswith prior exposure to HIV-1 and/or HIV-2 may be due toantigen and antibody levels that are below the limit ofdetection of this assay.[employer] HIV Ag/Ab Combo assay result andsupplemental assay results should be interpreted inconjunction with the patient's clinical presentation,history and other laboratory results. If the results areinconsistent with clinical evidence, additional testing issuggested to confirm the result. Blood Venous blood specimen / Unknown 03/27/2025 9:08 AM EDT 03/27/2025 2:41 PM EDT David Bynum MD LAB BLOOD ORDERABLES Final Result [facility] [address] [place] [address] [phone] * POCT Glucose (03/26/2025 4:14 PM EDT) Glucose Blood, POC 140 60 - 200 mg/dL [employer] Lot # [id number] Lot# Expiration Date 122,025 Blood Capillary blood specimen / Unknown 03/26/2025 4:14 PM EDT David Bynum MD POINT OF CARE TEST ENTER/ED IT ORDERABLES Final Result * POCT HGB A1C (12/31/2024 4:26 PM EDT) Hemoglobin A1C 5.7 4.0 - 6.0 % [employer] Lot # [id number] Lot# Expiration Date , Blood 12/31/2024 4:26 PM EDT Sally Pereira GUARD RANGE POINT OF CARE TEST ENTER/EDIT ORDERABLES Final Result * Hm Diabetes Eye Exam (12/31/2024 9:53 AM EDT) Historical Provider HEALTH MAINTENANCE Final Result * BI Mammogram Screening Tomosynthesis Bilateral (04/20/2023 12:52 PM EDT) Anatomical Region Laterality Modality Breast Bilateral Mammography 04/20/2023 12:5 2 PM EDT Narrative 05/09/2023 1:00 PM EDT [facility] [address] [place] [address] Mammography Report Signed Patient: Alton Jimenez MR#: [id number] : 1980 Acct:[id number] Age/Sex: 43 / F ADM Date: 04/20/23 Loc: MAMMO Attending Dr: David Bynum MD Ordering Physician: David Bynum MD Results: 1 Negative Date of Service: 04/20/23 Follow Up: 1 Year From Orig ina Mammogram Procedure(s): MM tomosynthesis screening BI Accession Number(s): [id number] cc: David Bynum MD EXAMINATION: MM SCREENING [...] in OV> 05/09/23 1257 DD/ 1252 TD/TT: Cnc Mill Programmer: Procedure Note Donotuseinterpreter, Image - 05/09/2023 [facility] [address] [place] [address] [place] [address] Mammography Report Signed Patient: Ronda Jimenez#: [id number] : 1980Acct:[id number] Age/Sex: 43 / FADM Date: 04/20/23 Loc: DIANA Attending Dr: David Bynum MD Ordering Physician: David Bynum MDResults: 1 Negative Date of Service: 04/20/23Follow Up: 1 Year From Orig inal Mammogram Procedure(s): MM tomosynthesis screening BI Accession Number(s): [id number] cc: David Bynum MD EXAMINATION: MM SCREENING [...] in OV> 05/09/23 1257 DD/ 1252 TD/TT: Cnc Mill Programmer: David Bynum MD IMG BI PROCEDURES Final [...] SYSTEM Chloride 102 96 - 108 mmol/L [facility] Creatinine, Serum 0.71 0.5 - 1.4 mg/dL [facility] Estimated Glomerular Filt Rate >60 [facility] Comment: NOTE: For -Bahraini individuals, multiply the result by 1.210. Chronic [...] Binding Capacity 361 228 - 428 mcg/dL [facility] Unsaturated Iron Binding 271 ug/dL [facility] C Reactive Protein 0.49 < or = 0.50 mg/dL [facility] Vitamin D 25-OH Total 13.6 [...] Free T4 0.91 0.32 - 4.0 uIU/mL [facility] Insulin 46(H) 2 - 29 [...] 06/17/2021 8:53 AM EST us Historical Provider MD HISTORICAL/NON ORDERABLE LABS Final Result Performing Organization Address City/State/[facility] Co de Phone Number [facility] [address] * THINPREP PAP (10/06/2020 12:09 PM EST) Clinical Information: None given [facility] COMMENT SEE COMMENT [facility] [...] along with historic and current clinical information. Battery Wrecker Operator : SEE COMMENT [facility] Comment: RK CT(ASCP) CT screening location: [place] [address] Interpretation/R esult: Negative for intraepithelial lesion or malignancy. [facility] LMP: NONE GIVEN [facility] Prev. BX: NONE GIVEN [facility] Prev. PAP: NONE GIVEN [facility] SOURCE: None given [facility] Statement Of Adequacy: SEE COMMENT [facility] Comment: Satisfactory for evaluation. Endocervical/transformation zone component absent. Age and/or menstrual status not provided 10/06/2020 12:0 9 PM EST Elana Samskarma [facility] LAB PATHOLOGY ORDERABLES Final Result Performing Organization Address [facility] Phone Number [facility] [address] * HPV mRNA E6/E7 (10/06/2020 12:09 PM EST) HPV nRNA E6/E7 Not Detected Not Detected [facility] Comment: Methodology: Endodontics Dentist-Mediated Amplification This assay detects E6/E7 viral messenger RNA (mRNA) from 14 high-risk HPV types (16,18,31,33,35,39,45,51,52,56,58,59,66,68). The analytical performance characteristics of this assay have been determined by [employer]. The modifications have not been cleared or approved by the FDA. This assay has been validated pursuant to the CLIA regulations and is used for clinical purposes. For additional information, please refer to http://education.HubChilla/faq/UPM162u3 (This link if provided for information/ educational purposes only.) 10/06/2020 12:0 9 PM EST [facility]LOOD ORDERABLES Karine l Result Performing Organization Address [facility] Phone Number [facility] [address] * ALBUMIN, RANDOM URINE W/CREATININE (07/07/2020 8:56 AM EST) Pathologist [facility] Microalbumin Urine 2.8 See Note: mg/dL [facility] Comment: Reference Range: Reference Range [...] Bynum MD LAB URINE ORDERABLES Final Result [facility] [address] from Last 3 Months or Most Recently Relevant to Health Maintenance Insurance [id number] Care Teams Merchandising Lead Relationship Specialty Start Date End Date David Bynum MD [address] [place] [phone] PCP - General Internal Medicine 09/22/17
--- OUTSIDE RECORDS SUMMARY | 2025-04-25 14:43 | XMS_ITS | Encounter Summary ---
Author Organization [employer] Address [address] [place] [address] Care Team Providers Care Hot Frame Tender Name Role Phone David Bynum MD Primary Care Provider [phone]- [phone] Encounter Details Date Type Department Care Team ([facility] Contact Info) Description [facility] [address] [place], [place] [phone] David Bynum MD [address] [place], [place] [phone] Social History Tobacco Use Types Packs/Day Years [...] Upcoming Encounters Date Type Department Care Team ([facility] Contact Info) Description 05/09/2025 2:30 PM EDT Office Visit [facility] MED & PEDS [address] [place], [place] [phone] David Bynum MD [address] [place] [address] documented as of this encounter Visit Diagnoses Not on filedocumented in this encounter Additional Health Concerns Assessment Noted Time PHQ-9 Depression Total Score: 5 08/30/19 23 4:09 PM EST documented as of this encounter Care Teams Hot Frame Tender Relationship Specialty Start Date End Date David Bynum MD [address] [place] [address] PCP - General Internal Medicine 09/22/17 documented as of this encounter
--- OUTSIDE RECORDS SUMMARY | 2025-04-25 14:43 | XMS_ITS | Encounter Summary ---
Author Organization [employer] Address [address] [facility] 7t [place] [address] Care Team Providers Care Director Business Development Name Role Phone David Bynum MD Primary Care Provider [phone] Encounter Details Date Type Department Care Team ([facility] st Contact Info) Description 01/10/2025 Orders Only [facility] & PEDS [address] [place] [address] Provider, MD Noa Social History Tobacco Use [...] 05/09/2025 2:30 PM EDT Office Visit [facility] [address] [place] [address] David Bynum MD [address] [place] [address] documented as of this encounter Procedures Procedure [...] documented as of this encounter Care Teams Director Business Development Relationship Specialty Start Date End Date David Bynum MD [address] [place] [address] PCP - General Internal Medicine 09/22/17 documented as of this encounter
--- OUTSIDE RECORDS SUMMARY | 2025-04-25 14:43 | XMS_ITS | Clinical Summary ---
Author Organization [employer] [facility] Address [address] [place] [address] Care Team Providers Care Sorting Machine Attendant Name Role Phone David Bynum MD Primary Care Provider [phone] Medical History Medical History Date Comments Hypertension [...] age to complete this topic Care Teams Sorting Machine Attendant Relationship Specialty Start Date End Date David Bynum MD [address] [place] [address] PCP - General Internal Medicine 06/22/21
--- OUTSIDE RECORDS SUMMARY | 2025-04-25 14:44 | XMS_ITS | Encounter Summary ---
Author Organization [employer] Address [address] [address] Care Team Providers Care Card Grinder Helper Name Role Phone David Bynum MD Primary Care Provider [phone]- [phone] Reason for Visit * Reason Onset Date Comments Nurse Triage 12/20/2023 Encounter Details Date Type Department Care Team ([facility] st Contact Info) Description 12/20/2023 Telephone [facility] MEDICINE [address] [place] [address] David Bynum MD [address] [place] [address] Nurse Triage Social History Tobacco Use Types [...] appeared after taking unknown abx bought in ID. Pt states when she stopped taking this med, symptoms resolved. Pt denies any current symptoms pt was c/o last week. Pt advised if symptoms return to go to ED. Pt agrees with plan. * Telephone Encounter - Shana Meyer LPN - 12/20/2023 11:25 AM EDT Triage call returned to patient with [facility] respiratory care program director [id number]. Patient reports that she has chestpain right [...] plan. Will seek cardiac evaluation at either [facility] or [facility] ED.Reviewed with pt to contact PCP office [...] nurse or provider NOW! Reason: Trouble breathing Kinyarwanda Speaker (Accepted respiratory care program director) documented in this encounter Plan of Treatment Upcoming Encounters Date Type Department Care Team (Late st Contact Info) Description 05/09/2025 2:30 PM EDT Office Visit [facility] MED & PEDS [address] [place] [address] David Bynum MD [address] [place] [address] documented as of this encounter Visit Diagnoses Not on filedocumented in this encounter Additional Health Concerns Assessment Noted Time PHQ-9 Depression Total Score: 5 08/30/19 23 4:09 PM EST documented as of this encounter Care Teams Card Grinder Helper Relationship Specialty Start Date End Date David Bynum MD [address] [place] [address] PCP - General Internal Medicine 09/22/17 documented as of this encounter
--- OUTSIDE RECORDS SUMMARY | 2025-04-25 14:44 | XMS_ITS | Encounter Summary ---
Author Organization [employer] Address [address] [address] Care Team Providers Care Law Office Receptionist Name Role Phone David Bynum MD Primary Care Provider [phone]- [phone] Reason for Visit * Reason Onset Date Comments PT1 08/27/2024 Encounter Details Date Type Department Care Team ([facility] Contact Info) Description 08/27/2024 Telephone [facility] CHC MED & PEDS [address] [place], [place] [phone] David Bynum MD [address] [place] [address] PT1 Social History Tobacco Use Types Packs/Day [...] facility name: [facility] Facility Address: [address] [place] [address] Escort needed: Y/N: Yes Do you have a wheelchair: Y/N: No If yes- Manual or electric: Visits: 1-2 times a month for 6 months Date of appt 09/17/24 at 8 am documented in this encounter Plan of Treatment Upcoming Encounters Date Type Department Care Team ([facility] st Contact Info) Description 05/09/2025 2:30 PM EDT Office Visit [facility] MED & PEDS [address] [place] [address] David Bynum MD [address] [place] [address] documented as of this encounter Visit Diagnoses Not on filedocumented in this encounter Additional Health Concerns Assessment Noted Time PHQ-9 Depression Total Score: 0 06/13/20 24 9:57 AM EST documented as of this encounter Care Teams Law Office Receptionist Relationship Specialty Start Date End Date David Bynum MD [address] [place] [phone] PCP - General Internal Medicine 09/22/17 documented as of this encounter
--- OUTSIDE RECORDS SUMMARY | 2025-04-25 14:44 | XMS_ITS | Encounter Summary ---
Author Organization [employer] Address [address] [facility] [address] [place] [address] Care Team Providers Care Automotive Lot Attendant Name Role Phone David Bynum MD Primary Care Provider +1- [phone] Encounter Details Date Type Department Care Team ([facility] st Contact Info) Description 01/10/2025 Orders Only [facility] CH[facility] MED & PEDS [address] [place], [place] [phone] David Bynum MD [address] [place] [address] Diarrhea, unspecified type (Primary Dx); Normocytic anemia [...] 2:30 PM EDT Office Visit [facility] MED & PEDS [address] [place] [address] David Bynum MD [address] [place] [address] documented as of this encounter Procedures Procedure Name Priority Date/Time Associated Diagnosis Comments CBC WITH AUTO DIFFERENTIAL Routine 01/14/2025 Diarrhea, unspecified type documented in this encounter Results * CBC auto differential (01/14/2025) Blood Venous blood specimen / Unknown David Bynum MD LAB BLOOD ORDERABLES Final Result [facility] [address] [place] [address] [phone] documented in this encounter Visit Diagnoses Diagnosis Diarrhea, unspecified type- Primary Normocytic anemia Unspecified anemia documented in this encounter Additional Health Concerns Assessment Noted Time PHQ-9 Depression Total Score: 0 06/13/20 24 9:57 AM EST documented as of this encounter Care Teams Automotive Lot Attendant Relationship Specialty Start Date End Date David Bynum MD [address] [place] [address] PCP - General Internal Medicine 09/22/17 documented as of this encounter
--- OUTSIDE RECORDS SUMMARY | 2025-04-25 14:44 | XMS_ITS | Encounter Summary ---
Author Organization [employer] Address [address] [facility] 7t [place] [address] Care Team Providers Care Top Waddy Name Role Phone David Bynum MD Primary Care Provider +1 [phone] Encounter Details Date Type Department Care Team ([facility] st Contact Info) Description 04/21/2025 Results Follow-Up [facility] CH[facility] MED & PEDS [address] [place] [address] Carmencita Boyd RN Urinalysis, Complete, with Reflex to Culture Social History Tobacco Use Types Packs/Day Years [...] encounter Miscellaneous Notes * Telephone Encounter - Carmencita Boyd RN - 04/21/2025 1:21 PM EDT TC to pt. Pt stated completing US of thyroid, author advised will obtain result and have provider review. Pt stated that ENT appointment is very far away and wondering if PCP can expedite appointment. Advised of outside office having their own triage system and advised for pt to see if office has cancellation list pt can be added to. Pt verbalized understanding and agreement with plan. * Telephone Encounter - Carmencita Boyd RN - 04/21/2025 1:21 PM EDT ----- Message from David Bynum MD sent at 04/18/2025 12:12 PM EDT ----- FYI. Mrs. Alton Marlow was called: 1) the result of the ultrasound was reported to her. She is aware that she has some new nodules. The results will be given to her to make her wire galvanizer aware. She is to follow-up in 1,2, 3, 4, 5 years. She will get volume swallow as well. The order is placed in the EHR. 2) GC chlamydia is missing from the chart. Ms. Alton Marlow will come to the office to get it done Monday. ----- Message ----- From: Interface, Lab Results In Sent: 04/01/2025 2:22 PM EDT To: David Bynum MD documented in this encounter Plan of Treatment Upcoming Encounters Date Type Department Care Team ([facility] st Contact Info) Description 05/09/2025 2:30 PM EDT Office Visit [facility] MED & PEDS [address] [place] [address] David Bynum MD [address] [place] [address] documented as of this encounter Visit Diagnoses Not on filedocumented in this encounter Additional Health Concerns Assessment Noted Time PHQ-9 Depression Total Score: 0 06/13/20 24 9:57 AM EST documented as of this encounter Care Teams Top Waddy Relationship Specialty Start Date End Date David Bynum MD [address] [place] [address] PCP - General Internal Medicine 09/22/17 documented as of this encounter
--- OUTSIDE RECORDS SUMMARY | 2025-04-25 14:44 | XMS_ITS | Encounter Summary ---
Author Organization [employer] Address [address] [place] [address] [place] [address] Care Team Providers Care Tenderizer Tender Name Role Phone David Bynum MD Primary Care Provider [phone]- [phone] Reason for Referral * Imaging (Routine) - Closed Specialty Diagnoses / Procedures Referred By Contac t Referred To Contact Radiology Diagnoses Intervertebral disc stenosis of neural canal of lumbar region Procedures MR Lumbar Spine w/o Contrast David Bynum MD [address] [place] [address] Phone: tel: fax: [facility] Referral ID Status Reason Start Date Expiration Date Visits Re quested Visits Authorized [id number] Closed 10/16/2023 10/15/2024 1 1 Encounter Details Date Type Department Care Team (Late st Contact Info) Description 10/16/2023 Orders Only [facility] CHC MED & PEDS [address] [place] [address] David Bynum MD [address] [place] [address] Intervertebral disc stenosis of neural canal of [...] Upcoming Encounters Date Type Department Care Team ([facility] st Contact Info) Description 05/09/2025 2:30 PM EDT Office Visit [facility] MED & PEDS [address] [place] [address] David Bynum MD [address] [place] [address] documented as of this encounter Procedures Procedure [...] documented as of this encounter Care Teams Tenderizer Tender Relationship Specialty Start Date End Date David Bynum MD [address] [place] [address] PCP - General Internal Medicine 09/22/17 documented as of this encounter
--- OUTSIDE RECORDS SUMMARY | 2025-04-25 14:44 | XMS_ITS | Encounter Summary ---
Author Organization [employer] Address [address] [place] [address] Care Team Providers Care Street Sweeper Operator Name Role Phone David Bynum MD Primary Care Provider [phone]- [phone] Reason for Visit * Reason Onset Date Comments Referral 04/07/2023 Encounter Details Date Type Department Care Team ([facility] st Contact Info) Description 04/07/2023 Telephone [facility] CHC MED & PEDS [address] [place], [place] [phone] David Bynum MD [address] [place] [address] Referral Social History Tobacco Use Types Packs/Day [...] 1:18 PM EDT referral # faxed to [employer] * Telephone Encounter - Latoya Vuong - 04/07/2023 1:11 PM EDT Tc from pt requesting renewal of referral. Location: [address] Date: n/a Time: n/a Fax: n/a Specialty: orthopedics (knee) documented in this encounter Plan of Treatment Upcoming Encounters Date Type Department Care Team (Late st Contact Info) Description 05/09/2025 2:30 PM EDT Office Visit [facility] CHC MED & PEDS [address] [place] [address] David Bynum MD [address] [place] [address] documented as of this encounter Visit Diagnoses Not on filedocumented in this encounter Additional Health Concerns Assessment Noted Time PHQ-9 Depression Total Score: 5 08/30/19 23 4:09 PM EST documented as of this encounter Care Teams Street Sweeper Operator Relationship Specialty Start Date End Date David Bynum MD [address] [place] [address] PCP - General Internal Medicine 09/22/17 documented as of this encounter
--- OUTSIDE RECORDS SUMMARY | 2025-04-25 14:44 | XMS_ITS | Encounter Summary ---
Author Organization [employer] Address [address] [address] Care Team Providers Care Cat Operator Name Role Phone David Bynum MD Primary Care Provider [phone]- [phone] Reason for Visit * Reason Onset Date Comments Referral 02/24/2025 Encounter Details Date Type Department Care Team (Late st Contact Info) Description 02/24/2025 Telephone [facility] MED[facility] [address] [place] [address] David Bynum MD [address] [place] [address] Referral Social History Tobacco Use Types Packs/Day [...] Evaluate and treat Sleep Medicine Services Location: [address] [place] [address] 2nd [address] [place] [address] Who are scheduling out for mid to end of April. Pt contacted a different office who would be ableto see her sooner. Pt would like referral modified so she can see : Dr Rosemary Lopez ( neurologist ) [address] [facility] (P) [phone] documented in this encounter Plan of Treatment Upcoming Encounters Date Type Department Care Team ([facility] st Contact Info) Description 05/09/2025 2:30 PM EDT Office Visit [facility] MED & PEDS [address] [place] [address] David Bynum MD [address] [place] [address] documented as of this encounter Visit Diagnoses Not on filedocumented in this encounter Additional Health Concerns Assessment Noted Time PHQ-9 Depression Total Score: 0 06/13/20 24 9:57 AM EST documented as of this encounter Care Teams Cat Operator Relationship Specialty Start Date End Date David Bynum MD [address] [place] [address] PCP - General Internal Medicine 09/22/17 documented as of this encounter
--- OUTSIDE RECORDS SUMMARY | 2025-04-25 14:44 | XMS_ITS | Encounter Summary ---
Author Organization [employer] Address [address] [facility] 7 [place] [address] Care Team Providers Care Chief Media Officer Name Role Phone David Bynum MD Primary Care Provider +1 [phone] Encounter Details Date Type Department Care Team ([facility] st Contact Info) Description 01/15/2025 Orders Only [facility] [address] [place] [address] ProviderNoa MD Social History Tobacco Use Types [...] [facility] MED & PEDS [address] [place] [address] David Bynum MD [address] [place] [address] documented as of this encounter Procedures Procedure [...] documented as of this encounter Care Teams Chief Media Officer Relationship Specialty Start Date End Date David Bynum MD [address] [place] [address] PCP - General Internal Medicine 09/22/17 documented as of this encounter
--- OUTSIDE RECORDS SUMMARY | 2025-04-25 14:44 | XMS_ITS | Encounter Summary ---
Author Organization [email or web address] Address [address] [facility] 7 [place] [address] Care Team Providers Care Library Acquisitions Technician Name Role Phone David Bynum MD Primary Care Provider +1- [phone] Encounter Details Date Type Department Care Team ([facility] st Contact Info) Description 04/18/2025 Orders Only [facility] CHC MED & PEDS [address] [place], [place] [phone] David Bynum MD [address] [place] [address] Dysuria (Primary Dx) Social History Tobacco Use Types [...] Upcoming Encounters Date Type Department Care Team ([facility] st Contact Info) Description 05/09/2025 2:30 PM EDT Office Visit [facility] CHC MED & PEDS [address] [place] [address] David Bynum MD [address] [place] [address] Scheduled Orders Name Type Priority Associated Diagnoses Orde r Schedule Urinalysis, Complete, with Reflex to Culture Lab Routine Dysuria Expected: 04/18/2025 (Approximate), Expires: 04/18/2026 documented as of this encounter Visit Diagnoses Diagnosis Dysuria- Primary documented in this encounter Additional Health Concerns Assessment Noted Time PHQ-9 Depression Total Score: 0 06/13/20 24 9:57 AM EST documented as of this encounter Care Teams Library Acquisitions Technician Relationship Specialty Start Date End Date David Bynum MD [address] [place] [address] PCP - General Internal Medicine 09/22/17 documented as of this encounter
--- OUTSIDE RECORDS SUMMARY | 2025-04-25 14:44 | XMS_ITS | Encounter Summary ---
Author Organization [employer] Address [address] [place] [address] [address] [place] [address] Care Team Providers Care Powerhouse Tender Name Role Phone David Bynum MD Primary Care Provider +1- [phone] Encounter Details Date Type Department Care Team ([facility] Contact Info) Description 12/13/2022 Orders Only [facility] MED & PEDS [address] [place] [address] Gillian Balderrama LPN Social History Tobacco Use [...] Upcoming Encounters Date Type Department Care Team ([facility] Contact Info) Description 05/09/2025 2:30 PM EDT Office Visit [facility] MED & PEDS [address] [place] [address] David Bynum MD [address] [place] [address] documented as of this encounter Visit Diagnoses Not on filedocumented in this encounter Additional Health Concerns Assessment Noted Time PHQ-9 Depression Total Score: 5 08/30/19 23 4:09 PM EST documented as of this encounter Care Teams Powerhouse Tender Relationship Specialty Start Date End Date David Bynum MD [address] [place] [address] PCP - General Internal Medicine 09/22/17 documented as of this encounter
[2025-04-25 19:21] LABS: Appearance Urine Hazy; Glucose Urine UA Negative (Negative); PH 6.5 (5.0-9.0); Specific Gravity - Urine 1.010 (1.005-1.025); UMIC TRIGGER UACC YES
== END 2025-04-25 13:26 | disposition home or self-care (01) ==
LOC: HO.CHCLDS 13:25
PROVIDERS: PCP Internal Medicine; Visit Provider Internal Medicine
DX: R30.0 Dysuria (principal)
CPT/HCPCS: 81001

== ENCOUNTER → 2025-05-14 13:32 | Outpatient (BNV) | payer MEDICAID, SELFPAY | PROVIDERS: PCP Internal Medicine; Referring Provider Internal Medicine; Visit Provider Internal Medicine | DX: D69.6 Thrombocytopenia, unspecified (principal) | CPT/HCPCS: 99204 ==

== ENCOUNTER 2025-06-02 12:27 | Emergency (ER) | payer MEDICAID, SELFPAY ==
[2025-06-02 12:47] VITALS: BP 146/68; PULSE 81; RESP 16; TEMP 36.4; O2SAT 98; BMI 38.3
--- NOTE | 2025-06-02 12:47 | ED.GENADULT ---
HPI - General Adult General Chief complaint: General Medical Stated complaint: bleeding from nose, mouth Time Seen by Provider: 06/02/25 19:36 Source: patient Mode of arrival: ambulatory Limitations: no limitations History of Present Illness ED Provider: HPI narrative: 45-year-old woman with a history of pituitary adenoma, had surgery with entrance to the space through the left Beauchamp, for the past 3 months has been having recurrent nosebleeds, and also has had some painless rectal bleeding bright red blood when she moves her bowels without abdominal pain no fevers or chills, her PCP referred her to a community organization worker and she was seen of the hematology, patient states she felt palpitations and lightheaded and sounds like she called her PCP or Hematology office and they told her to go to the ER, she denies chest pain or shortness of breath no palpitations. Not on blood thinners Related Data Home Medications ?Medication ?Instructions ?Recorded ?Confirmed metoprolol succinate 200 mg 200 mg PO DAILY 05/25/20 05/14/25 tablet,extended release 24 hr blood sugar diagnostic (FreeStyle #10 ea 05/31/21 05/14/25 Lite Strips) cholecalciferol (vitamin D3) 25 25 mcg PO DAILY 05/31/21 05/14/25 mcg (1,000 unit) capsule lancets 28 gauge (FreeStyle #100 ea 05/31/21 05/14/25 Lancets) loratadine 10 mg tablet 10 mg PO DAILY 05/31/21 05/14/25 somatropin 12 mg/mL (36 unit/mL) 6 mg subcut DAILY 05/31/21 05/14/25 subcutaneous cartridge (Genotropin) furosemide 20 mg tablet 20 mg PO Q OTHER DAY 10/27/21 05/14/25 metformin 500 mg tablet,extended 1,000 mg PO QPM 09/05/22 05/14/25 release 24 hr prednisone 1 mg tablet 0 mg PO DIRECTED 09/21/22 05/14/25 Previous Rx's ?Medication ?Instructions ?Recorded metoprolol succinate 100 mg 100 mg PO DAILY #30 tabs 12/07/20 tablet,extended release 24 hr cyanocobalamin (vitamin B-12) 500 500 mcg PO DAILY #30 tabs 06/18/21 mcg tablet Allergies Allergy/AdvReac Type Severity Reaction Status Date / Time sulfacetamide Allergy Unknown BREATHING Verified 06/02/25 12:48 latex Allergy Hives Verified 06/02/25 12:48 Review of Systems Constitutional: Constitutional: Reports as per [facility] Past Medical History Medical History (Updated 06/02/25 @ 20:21 by Andres Meyers DO) Cancer of uterus DANIEL (obstructive sleep apnea) Morbid obesity HTN (hypertension) Surgical History (Updated 05/14/25 @ 16:49 by Ivette Dietz MD) Hx of abdominoplasty (05/23/24) History of carpal tunnel release Hx of hysterectomy History of pituitary surgery Hx of gastric bypass Family History Family History (Updated 05/14/25 @ 14:19 by Janie Osorio) Father No problems noted. Mother Diabetes CVD (cardiovascular disease) HTN (hypertension) Sister No problems noted. 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 examination of the nose reveals inflamed left anterior septum ? Neck: Supple, no LAD ? ?CV: RRR, no obvious murmurs appreciated radial pulses +2 ? ?Resp: ?No wheezing rales rhonchi no stridor moving air well ? Abd: ?Bowel sounds are present, no tenderness no rebound no rigidity ? ?MSK: FROM, strength 5/5 all extremities ? Skin: Warm, dry, intact, ? ?Neuro: ?Alert and oriented x3, moving upper and lower extremities symmetrically, no obvious facial asymmetry noted, cranial nerves 2-12 intact, no dysmetria upper or lower extremities no nystagmus Vital Signs: Vital Signs - 24 hr 06/02/25 12:47 06/02/25 18:41 Temperature 97.6 F Pulse Rate 81 70 Respiratory Rate 16 18 Blood Pressure 146/68 H 130/77 Pulse Oximetry 98 100 Oxygen Delivery Method Room Air Room Air BMI result Body Mass Index 38.3 Course Course Course Narrative: Rapid medical examination performed in triage by Meredith Salomon PA-C: Patient is a 45 year old assigned female at presenting to the emergency department with bloody nose, blood in her stool. Patient states that she has had bloody noses and blood in her stool over the last 3 months (on and off). Detailed physical exam and review of systems are deferred to the saddle stitching machine operator. Labs ordered. Patient placed back in the waiting room pending room availability and results. Procedures Epistaxis Control Nostril: Yes left Direct inspection: Yes anterior source identified Direct inspection method: Yes nasal speculum Clots removed by: Yes manually Epistaxis treatment: Yes silver nitrate cautery Results of treatment: Yes bleeding controlled Complications: Yes none Medical Decision Making Medical Decision Making [facility] Narrative: 8:29 PM 06/02/2025 (Dr. Andres Meyers): Patient presented with rectal bleeding, I spoke to her regarding really not necessitating rectal exam she has stable H&H this is a recurrent issue when she moves her bowels with a past 3 months with a benign abdominal exam did not feel CT imaging is indicated, blood pressure is stable, she has no tachycardia no hypoxia do not suspect underlying dysrhythmia or ACS I spoke to the patient and refer her to PCP she needs a GI referral for colonoscopy make sure this is not related to either polyps or cancer, likely internal hemorrhoids however, otherwise she can also be referred to ENT as this is a recurrent issue and not related to bleeding disorder and she just had a visit with community organization worker Differential Diagnosis Differential Diagnoses: The differential diagnosis associated with the presentation includes (Anemia, thrombocytopenia, blood dyscrasias, dehydration, dysrhythmia) Anemia Admission/Observation Consideration of admission/observation: Escalation of care including admission/observation considered Lab Data [facility] Lab Attestation statement: I reviewed the patient's lab results. 06/02/25 13:07 06/02/25 13:07 Labs: Lab Results 06/02/25 Range/Units 13:07 WBC 6.0 (4.8-10.8) X10*3/uL RBC 3.89 L (4.20-5.50) X10*6/uL Hgb 11.9 L (12.0-16.0) g/dl Hct 35.3 L (37.0-47.0) % MCV 90.7 (80.0-98.0) fL MCH 30.6 (27.0-33.0) pg MCHC 33.7 (31.0-35.0) g/dl RDW 12.5 (11.0-16.0) % Plt Count 114 L (160-400) X10*3/uL MPV 11.0 (9.4-12.3) fL Immature Gran % (Auto) 0.2 (0.0-0.4) % Neut % (Auto) 47.2 (45-73) % Lymph % (Auto) 43.8 H (20-40) % Wirt % (Auto) 7.7 (2-11) % Eos % (Auto) 0.8 (0-4) % Baso % (Auto) 0.3 (0-2) % Lymph # (Auto) 2.6 (1.2-4.9) X10*3/uL Wirt # (Auto) 0.5 (0.1-1.2) X10*3/uL Eos # (Auto) 0.1 (0.0-0.4) X10*3/uL Baso # (Auto) 0.0 (0.0-0.2) X10*3/uL Abs Immat Gran (auto) 0.01 (0.00-0.03) X10*3/uL Absolute Neuts (auto) 2.8 (2.0-8.3) x10*3/uL Absolute Nucleated RBC 0.000 (0.0-0.012) X10*3/uL Nucleated RBC % (auto) 0.0 (0.0-0.2) /100WBC PT 15.6 H (10.9-12.4) SEC INR 1.4 H (0.9-1.1) Sodium 141 (135-145) mmol/L Potassium 3.6 (3.3-5.1) mmol/L Chloride 108 (96-108) mmol/L Carbon Dioxide 27 (22-29) mmol/L Anion Gap 10 L (12-20) BUN 10 (9-16) mg/dL Creatinine 0.60 (0.5-1.4) mg/dL Estim Creat Clear Calc 176.1 Estimated GFR > 60 Random Glucose 72 (60-115) mg/dL Calcium 9.0 D (8.4-10.2) mg/dL Total Bilirubin 0.8 (0.0-1.0) mg/dL AST 57 H (5-31) U/L ALT 43 H (0-31) U/L Alkaline Phosphatase 69 (39-117) U/L Total Protein 7.4 (6.5-8.0) g/dL Albumin 4.0 (3.5-5.0) g/dL Tests considered The following testing was considered but not selected: CT abdomen pelvis, Hemoccult stool, ECG, cardiac enzymes Discharge Plan Discharge Clinical Impression: Epistaxis, recurrent, Painless rectal bleeding Patient Disposition: Home, Self-Care Instructions: Rectal Bleeding (ED), Nosebleed (ED) Additional Instructions: I recommend that you are referred by her primary care doctor to an ENT and a medical technologist hematology, ENT can address your recurrent nasal bleeding, in the meantime we cauterize the area on the left nostril that has been irritated and I saw that this was the area that was bleeding, as discussed continue with clearing your nose using saline, do not blow your nose do not pick at it, just be very gentle it it and get yourself and humidifier to make sure that the air around your bad when you sleep is moist so it prevents from drying out of the mucosa, as far as rectal bleeding, most common cause is internal hemorrhoids, but I do refer command that you follow up with a PCP for GI referral you may need colonoscopy to evaluate for any underlying polyps or any other concerning findings. Your blood work today has been reassuring, your platelets are slightly low but nothing that would cause spontaneous bleeding and the anemia is extremely mild and stable for you. Prescriptions: No Action metoprolol succinate 100 mg tablet extended release 24 hr 100 mg PO DAILY Qty: 30 4RF cyanocobalamin (vitamin B-12) 500 mcg tablet 500 mcg PO DAILY Qty: 30 0RF metoprolol succinate 200 mg tablet extended release 24 hr 200 mg PO DAILY cholecalciferol (vitamin D3) 25 mcg (1,000 unit) capsule 25 mcg PO DAILY (DME) lancets [FreeStyle Lancets] 28 gauge misc See Rx Instructions topical BID Qty: 100 Rx Instructions: As directed loratadine 10 mg tablet 10 mg PO DAILY (DME) FreeStyle Lite Strips Strip See Rx Instructions Not Applicable TID Qty: 10 Rx Instructions: As directed Genotropin 12 mg/mL (36 unit/mL) cartridge 6 mg subcut DAILY metformin 500 mg tablet extended release 24 hr 1,000 mg PO QPM furosemide 20 mg tablet 20 mg PO Q OTHER DAY prednisone 1 mg tablet 0 mg PO DIRECTED Referrals: David Bynum MD [Primary Care Provider, Medical] - 2 weeks Clinical Impression: Painless rectal bleeding Print Language: Uruguayan
[2025-06-02 13:19] LABS: MANUAL DIFF FLAG NO
[2025-06-02 13:22] LABS: Hematocrit 35.3 % (37.0-47.0); Hemoglobin 11.9 g/dl (12.0-16.0); Imm Gran Abs Auto 0.01 X10*3/uL (0.00-0.03); Imm Gran Pct Auto 0.2 % (0.0-0.4); Lymphocytes Absolute Auto 2.6 X10*3/uL (1.2-4.9); Mean Corpuscular HGB Conc 33.7 g/dl (31.0-35.0); Mean Corpuscular Hemoglobin 30.6 pg (27.0-33.0); Mean Corpuscular Volume 90.7 fL (80.0-98.0); NRBC Abs Auto 0.000 X10*3/uL (0.0-0.012); NRBC Pct Auto 0.0 /100WBC (0.0-0.2); Platelet Count 114 X10*3/uL (160-400); Red Blood Count 3.89 X10*6/uL (4.20-5.50); White Blood Count 6.0 X10*3/uL (4.8-10.8)
[2025-06-02 13:30] LABS: INTERNATIONAL NORM RATIO 1.4 (0.9-1.1); Prothrombin Time 15.6 SEC (10.9-12.4)
[2025-06-02 13:36] LABS: Alanine Aminotransferase 43 U/L (0-31); Albumin Level 4.0 g/dL (3.5-5.0); Alkaline Phosphatase 69 U/L (39-117); Anion Gap 10 (12-20); Aspartate Amino Transferase 57 U/L (5-31); Blood Urea Nitrogen 10 mg/dL (9-16); Calcium 9.0 mg/dL (8.4-10.2); Carbon Dioxide 27 mmol/L (22-29); Chloride 108 mmol/L (96-108); Creatinine Clr Calc Pharmacy 176.1; Estimated Glomerular Filt Rate > 60; Potassium 3.6 mmol/L (3.3-5.1); Sodium 141 mmol/L (135-145); Total Protein 7.4 g/dL (6.5-8.0)
--- OUTSIDE RECORDS SUMMARY | 2025-06-02 17:52 | XMS_ITS | Encounter Summary ---
Author Organization [facility] Address [address] [place] [address] Phone Care Team Providers Care Multiple Sclerosis Nurse Name Role Phone David Bynum MD Primary Care Pr ovider Hero Baltazar MD Unavailable [phone] Encounter Details Date Type Department Care Team (Late st Contact Info) Description 02/06/2019 Procedure Pass MRI, [facility] - [place] [place] [address] Social History Tobacco Use Types Packs/Day Years [...] Description 07/14/2025 1:30 PM EST Office Visit [address], [address] [place] [address] Corby Sanchez MD [address] [facility] [address] [place] [phone] [email or web address] documented as of this encounter Visit Diagnoses Not on filedocumented in this encounter Care Teams Multiple Sclerosis Nurse Relationship Specialty Start Date End Date David Bynum MD [address] [address] PCP - General Internal Medicine 05/23/18 Hero Baltazar MD [address] [place] [address] [email or web address] Radiation Oncology 11/28/18 documented as of this encounter Additional Source Comments The information contained in this document represents components of the legal health record. It is not the complete legal health record.[facility]
--- OUTSIDE RECORDS SUMMARY | 2025-06-02 17:52 | XMS_ITS | Clinical Summary ---
Author Organization [facility] Address [address] [place] [address] Phone Care Team Providers Care Playground Attendant Name Role Phone David Bynum MD Primary Care Provider [phone] Allergies Active Allergy Reactions Criticality Noted Date Comments Insulin Glargine 04/28/2025 Sulfa (Sulfonamide Antibiotics) 04/01 Medications ondansetron ODT (ZOFRAN-ODT) 4 mg disintegrating tablet Let 1 tablet dissolve under the tongue three times daily as needed for nausea or vomiting. 10 tablet 05/06/20 25 Encounters Date Type Department Care Team Description 04/29/2025 12:01 AM EDT - 04/29/2025 4:[address] [facility] [address] [place] [address] Nixon Love MD Nausea and vomiting, unspecified vomiting type (Primary Dx); Dizziness Discharge Disposition: Home or Self Care from Last 3 Months Medical History Medical History Date Comments Hypertension DX:Hypertension Diabetes mellitus type 2, co ntrolled, with complications (CMS/HCC V24, CMS/HCC V28) DX:Diabetes mellitus type 2, controlled, with complications (HCC) Tumor DX:Tumor Social History Tobacco Use Types Packs/Day Years Used Date Smoking Tobacco: Never Smokeless Tobacco: Never Comments No Sex and Gender Information Value Date Recorded Sex Assigned at Not on file Legal Sex Female 8:25 AM EST Gender Identity Not on file Sexual Orientation Not on file Obstetrics History Last Filed Vital Signs Vital Sign Reading Time Taken Comments Blood Pressure 139/82 04/29/2025 3:30 AM EDT Pulse 64 04/29/2025 3:30 AM EDT Temperature 36.8 C (98.3 F) 04/29/2025 12:31 AM EDT Respiratory Rate 20 04/29/2025 3:30 AM EDT Oxygen Saturation 97% 04/29/2025 3:30 AM EDT Inhaled Oxygen Concentration - - Weight 125 kg (275 lb) 04/28/2025 10:22 PM EDT Height 182.9 cm (6') 04/28/2025 10:22 PM EDT Body Mass Index 37.3 04/28/2025 10:22 PM EDT Plan of Treatment Health Maintenance Due Date Last Done Comments Breast Cancer Screening 1982 Diabetes: Annual Foot Exam 01/26/1992 Diabetes: Annual Retina Eye Exam 01/26/1992 Hepatitis B Vaccines (1 of 3 - 19+ 3-dose series) 2001 Cervical Cancer Screening: Pap Smear 2003 HPV Vaccines (1 - 3-dose SCDM series) 2009 Cholesterol Screening (Lipid Panel) 07/03/2022 Social Influencers of Health Screening 07/03/2022 Depression Screening 07/31/2024 Diabetes: Annual Urine Albumin-Creatinine Ratio (uACR) 09/13/2024 COVID-19 Vaccine ( season) 2025 Influenza Vaccine (#1) 2025 , 08/05/2019, 07/07/2017, Additional history exists Diabetes: Blood Sugar Control Test (HGBA1C) 07/02/2025 12/31/2024, 06/13/2024 Diabetes: Annual GFR (Glomerular Filtration Rate) 04/28/2026 04/28/2025 Hypertension/CHF/CAD Annual BMP Blood Test 04/28/2026 04/28/2025 DTaP,Tdap,and Td Vaccines (2 - Td or Tdap) 08/10/2027 08/10/2017 RSV Immunization Adult Patients (1 - 1-dose 75+ series) 2057 Pneumococcal Vaccine: Pediatrics (0 to 5 Years) and At-Risk Patients (6 to 49 Years) Aged Out 01/17/2018, 06/18/2010 No longer eligibl e based on patient's age to complete this topic HIV Screening Completed 03/27/2025, 11/25/2022 Hepatitis C Screening Completed 03/27/2025, 023 HIB Vaccines Aged Out No longer eligi [...] Procedure Name Priority Date/Time Associated Diagnosis Comments ECG ANNOTATED 04/30/2025 POC , URINE DIAGNOSTIC STAT 04/29/2025 1:44 AM EDT URINALYSIS WITH REFLEX MICROSCOPIC STAT 04/29/2025 1:01 AM EDT URINALYSIS WITH REFLEX MICROSCOPIC STAT 04/29/2025 1:01 AM EDT ECG 12-LEAD STAT 04/29/2025 12:40 AM EDT TROPONIN I HIGH SENSITIVITY STAT 04/29/2025 12:30 AM EDT LIPASE STAT Add-on 04/28/2025 11:44 PM EDT MAGNESIUM STAT Add-on 04/28/2025 11:44 PM EDT ACTIVATED PARTIAL THROMBOPLASTIN TIME STAT 04/28/2025 11:44 PM EDT PROTHROMBIN TIME WITH INR STAT 04/28/2025 11:44 PM EDT CBC WITH AUTO DIFFERENTIAL STAT 04/28/2025 11:44 PM EDT COMPREHENSIVE METABOLIC PANEL STAT 04/28/2025 11:44 PM EDT CBC AND DIFFERENTIAL STAT 04/28/2025 11:44 PM EDT from Last 3 Months Results * ECG-Annotated (04/30/2025) Provider Onbase ECG ORDERABLES Final Result * POC , urine manually resulted (04/29/2025 1:44 AM EDT) Pathologist [facility] [place] HCG, Ur POC Negative Negative POC hCG Int QC Pass? Yes Yes Urine Urine specimen obtained by clean catch procedure / Unknown 04/29/2025 1:44 AM EDT Nixon Love MD POINT OF CARE TEST ENTER/KEN T ORDERABLES Final Result * Urinalysis with reflex microscopic (04/29/2025 1:01 AM EDT) [facility] Specific Western Urine 1.028 1.003 - 1.030 04/29/2025 6:25 AM [facility] pH, Urine 5.5 5.5, 6.0, 6.5, 7.0 pH 04/29/2025 6:25 AM [facility] Leukocytes, Urine Negative Negative 04/29/2025 6:25 AM [facility] Nitrite, Urine Negative Negative 04/29/2025 6:25 AM [facility] Protein, Urine Trace mg/dL 04/29/2025 6:25 AM [facility] Glucose, Urine Negative mg/dL 04/29/2025 6:25 AM [facility] Ketones, Urine Trace mg/dL 04/29/2025 6:25 AM [facility] Urobilinogen, Urine 1.0 mg/dL 04/29/2025 6:25 AM [facility] Bilirubin, Urine Negative Negative 04/29/2025 6:25 AM EDT [facility] Blood, Urine Negative Negative 04/29/2025 6:25 AM EDT [facility] RBC, Urine 2.6 0 - 4 /HPF 04/29/2025 6:25 AM EDT [facility] WBC, Urine 1.5 0 - 4 /HPF 04/29/2025 6:25 AM EDT [facility] Squamous Epithelial, Urine 15 0 - 60 /LPF 04/29/2025 6:25 AM EDT [facility] Crystals, Urine Light Calcium Oxalate /LPF 04/29/2025 6:25 AM EDT [facility] Bacteria, Urine Negative Negative /HPF 04/29/2025 6:25 AM EDT [facility] Hyaline Casts, Urine 1.2 0 - 3 /LPF 04/29/2025 6:25 AM EDT [facility] Urine Urine specimen obtained by clean catch procedure / Unknown Non-blood Collection / Unknown 04/29/2025 1:01 AM EDT 04/29/2025 1:45 AM EDT us Nixon Love MD LAB URINE ORDERABLES Final R esult [facility] [address] [place] [address], * 12-Lead ECG (04/29/2025 12:40 AM EDT) Ventricular Rate ECG 71 BPM GEMUSE Atrial Rate 71 BPM GEMUSE P-R Interval 176 ms GEMUSE QRS Duration 76 ms GEMUSE Q-T Interval 438 ms GEMUSE QTc 475 ms GEMUSE P Wave [place] 25 degrees GEMUSE R [place] 8 degrees GEMUSE T [place] -4 degrees GEMUSE ECG Interpretation Normal sinus rhythm Poor R wave progression Abnormal ECG When compared with ECG of 01-JUN-2017 18:35, Nonspecific T wave abnormality, worse in Anterior leads Confirmed by Luci SANDOVAL JAMES ([id number]) on 04/29/2025 4:25:39 PM GEMUSE 04/29/2025 12:4 0 AM EDT 04/29/2025 4:25 PM EDT Nixon Love MD ECG ORDERABLES Final Result Performing Organization Address [facility] de Phone Number GEMUSE * Troponin I High Sensitivity (04/29/2025 12:30 AM EDT) [facility] High Sensitivity Troponin I 4 <=54 ng/L LAB CHEMISTRY METHOD 04/29/2025 1:18 AM EDT [facility] Blood Venous blood specimen / Unknown Venipuncture / Unknown 04/29/2025 12:30 AM EDT 04/29/2025 12:52 AM EDT Narrative [facility] - 04/29/2025 1:18 AM EDT High levels of biotin in samples may falsely decrease hsTroponin values. Use caution when interpreting hsTroponin results in patients taking biotin who exhibit renal impairment (eGFR <60) or in patients taking more than 20 mg/day of biotin. Nixon Love MD LAB BLOOD ORDERABLES Final R esult Performing Organization Address City/[facility] Co de Phone Number [facility] [address] [place] [address], * (ABNORMAL) CBC auto differential (04/28/2025 11:44 PM EDT) [facility] WBC 5.8 4.8 - 10.8 K/mcL LAB HEMETOLOGY METHOD 04/29/2025 1:19 AM EDT [facility] RBC 3.90 3.80 - 4.80 M/mcL LAB HEMETOLOGY METHOD 04/29/2025 1:19 AM EDT [facility] Hemoglobin 11.5 11.5 - 16.0 g/dL LAB HEMETOLOGY METHOD 04/29/2025 1:19 AM [facility] Hematocrit 35.4 35.0 - 47.0 % LAB HEMETOLOGY METHOD 04/29/2025 1:19 AM [facility] MCV 91.2 79.0 - 98.0 FL LAB HEMETOLOGY METHOD 04/29/2025 1:19 AM [facility] MCH 29.6 27.0 - 32.0 pcg LAB HEMETOLOGY METHOD 04/29/2025 1:19 AM [facility] MCHC 32.5 32.0 - 37.0 g/dL LAB HEMETOLOGY METHOD 04/29/2025 1:19 AM [facility] RDW 12.9 11.0 - 15.0 % LAB HEMETOLOGY METHOD 04/29/2025 1:19 AM [facility] Platelets 116(L) 130 - 400 K/mcL LAB HEMETOLOGY METHOD 04/29/2025 1:19 AM [facility] MPV 11.1(H) 7.0 - 11.0 FL LAB HEMETOLOGY METHOD 04/29/2025 1:19 AM [facility] NRBC 0.0 <1.0 % LAB HEMETOLOGY METHOD 04/29/2025 1:19 AM [facility] NRBC Absolute 0.00 <0.10 K/mcL LAB HEMETOLOGY METHOD 04/29/2025 1:19 AM [facility] Neutrophils Relative 43.2 % LAB HEMETOLOGY METHOD 04/29/2025 1:19 AM [facility] Lymphocytes Relative 49.2 % LAB HEMETOLOGY METHOD 04/29/2025 1:19 AM [facility] Monocytes Relative 6.2 % LAB HEMETOLOGY METHOD 04/29/2025 1:19 AM EDT [facility] Eosinophils Relative 1.0 % LAB HEMETOLOGY METHOD 04/29/2025 1:19 AM T [facility] Basophils Relative 0.2 % LAB HEMETOLOGY METHOD 04/29/2025 1:19 AM [facility] Immature Granulocytes Relative 0.2 % LAB HEMETOLOGY METHOD 04/29/2025 [facility] Neutrophils Absolute 2.50 1.50 - 7.00 K/mcL LAB HEMETOLOGY METHOD 04/29/2025 1:19 AM [facility] Lymphocytes Absolute 2.85 1.00 - 5.00 K/mcL LAB HEMETOLOGY METHOD 04/29/2025 1:19 AM [facility] Monocytes Absolute 0.36 0.20 - 1.00 K/mcL LAB HEMETOLOGY METHOD 04/29/2025 1:19 AM T [facility] Eosinophils Absolute 0.06 0.00 - 0.50 K/mcL LAB HEMETOLOGY METHOD 04/29/2025 1:19 AM [facility] Basophils Absolute 0.01 0.00 - 0.20 K/mcL LAB HEMETOLOGY METHOD 04/29/2025 1:19 AM [facility] Immature Granulocytes Absolute 0.01 0.00 - 0.03 K/mcL LAB HEMETOLOGY METHOD 04/29/2025 1:19 AM [facility] Blood Venous blood specimen / Unknown Venipuncture / Unknown 04/28/2025 11:44 PM EDT 04/29/2025 12:52 AM EDT us Nixon Love MD LAB BLOOD ORDERABLES Final R esult [facility] [address] [place] [address], [place] [phone] * APTT (04/28/2025 11:44 PM EDT) aPTT 36.9 24.1 - 39.3 sec LAB COAGULATION METHOD 04/29/2025 1:06 AM EDT [facility] Blood Venous blood specimen / Unknown Venipuncture / Unknown 04/28/2025 11:44 PM EDT 04/29/2025 12:52 AM EDT Alena MAHER LAB BLOOD ORDERABLES Fin al Result [facility] [address] [place] [address], [place] [phone] * (ABNORMAL) Protime-INR (04/28/2025 11:44 PM EDT) [facility] Protime 15.6(H) 10.6 - 13.9 sec LAB COAGULATION METHOD 04/29/2025 1:06 AM EDT [facility] INR 1.2 LAB COAGULATION METHOD 04/29/2025 1:06 AM EDT [facility] Blood Venous blood specimen / Unknown Venipuncture / Unknown 04/28/2025 11:44 PM EDT 04/29/2025 12:52 AM EDT Alena MAHER LAB BLOOD ORDERABLES Fin al Result [facility] [address] [place] [address], [place] [phone] * Magnesium (04/28/2025 11:44 PM EDT) [facility] Magnesium 1.9 1.9 - 2.6 mg/dL LAB CHEMISTRY METHOD 04/29/2025 1:24 AM EDT [facility] Blood Venous blood specimen / Unknown Venipuncture / Unknown 04/28/2025 11:44 PM EDT 04/29/2025 12:52 AM EDT Nixon Love MD LAB BLOOD ORDERABLES Final R esult Performing Organization Address [facility]/ZIP Co de Phone Number [facility] [address] [place] [address], [place] [phone] * (ABNORMAL) Lipase (04/28/2025 11:44 PM EDT) Pathologist [facility] Lipase 80(H) 13 - 75 unit/L LAB CHEMISTRY METHOD 04/29/2025 1:24 AM EDT [facility] Blood Venous blood specimen / Unknown Venipuncture / Unknown 04/28/2025 11:44 PM EDT 04/29/2025 12:52 AM EDT Nixon Love MD LAB BLOOD ORDERABLES Final R esult Performing Organization Address City/[facility]/ZIP Co de Phone Number [facility] [address] [place] [address], [place] [phone] * (ABNORMAL) Comprehensive metabolic panel (04/28/2025 11:44 PM EDT) [facility] Sodium 140 133 - 145 mmol/L LAB CHEMISTRY METHOD 04/29/2025 1:24 AM EDT [facility] Potassium 3.6 3.5 - 5.5 mmol/L LAB CHEMISTRY METHOD 04/29/2025 1:24 AM EDT [facility] Chloride 107 96 - 110 mmol/L LAB CHEMISTRY METHOD 04/29/2025 1:24 AM EDT [facility] CO2 28 21 - 32 mmol/L LAB CHEMISTRY METHOD 04/29/2025 1:24 AM EDT [facility] Anion Gap 5 3 - 11 LAB CHEMISTRY METHOD 04/29/2025 1:24 AM EDT [facility] Glucose 121(H) 70 - 100 mg/dL LAB CHEMISTRY METHOD 04/29/2025 1:24 AM [facility] BUN 11 5 - 25 mg/dL LAB CHEMISTRY METHOD 04/29/2025 1:24 AM [facility] Creatinine 0.61 0.50 - 1.10 mg/dL LAB CHEMISTRY METHOD 04/29/2025 1:24 AM [facility] eGFR 114 >=60 mL/min/1. 73m2 LAB CHEMISTRY METHOD 04/29/2025 1:24 AM [facility] Comment:Calculation based on the Chronic Kidney Disease Epidemiology Collaboration (CKD-EPI) equation refit without adjustment for race. BUN/Creatinine Ratio 18.0 LAB CHEMISTRY METHOD 04/29/2025 1:24 AM [facility] Calcium 9.4 8.5 - 10.5 mg/dL LAB CHEMISTRY METHOD 04/29/2025 1:24 AM [facility] AST (SGOT) 47(H) 10 - 42 unit/L LAB CHEMISTRY METHOD 04/29/2025 1:24 AM [facility] ALT (SGPT) 43 10 - 60 unit/L LAB CHEMISTRY METHOD 04/29/2025 1:24 AM [facility] Alkaline Phosphatase 73 42 - 121 unit/L LAB CHEMISTRY METHOD 04/29/2025 1:24 AM [facility] Total Protein 7.7 6.0 - 8.0 g/dL LAB CHEMISTRY METHOD 04/29/2025 1:24 AM [facility] Albumin 3.7 3.2 - 5.0 g/dL LAB CHEMISTRY METHOD 04/29/2025 1:24 AM [facility] Total Bilirubin 0.8 0.0 - 1.4 mg/dL LAB CHEMISTRY METHOD 04/29/2025 1:24 AM [facility] Blood Venous blood specimen / Unknown Venipuncture / Unknown 04/28/2025 11:44 PM EDT 04/29/2025 12:52 AM EDT us Nixon Love MD LAB BLOOD ORDERABLES Final R esult [facility] [address] [place] [address], [place] [phone] from Last 3 Months Insurance MEDICAID - [place] Care Teams Playground Attendant Relationship Specialty Start Date End Date David Bynum MD [address] [place] [address] PCP - General Internal Medicine 06/22/21
--- OUTSIDE RECORDS SUMMARY | 2025-06-02 17:52 | XMS_ITS | Encounter Summary ---
Author Organization [facility] Address [address] [place] [address] Phone Care Team Providers Care Electrical Equipment Tester Name Role Phone David Bynum MD Primary Care Pr ovider Hero Baltazar MD Unavailable [phone] Encounter Details Date Type Department Care Team (Late st Contact Info) Description 06/04/2018 Procedure Pass [facility] [address] [place] [address] Social History Tobacco Use Types Packs/Day Years [...] 1:30 PM EST Office Visit [facility] [address] [facility], [address] [place] [address] Corby Sanchez MD [address] [phone] [email or web address] documented as of this encounter Visit Diagnoses Not on filedocumented in this encounter Care Teams Electrical Equipment Tester Relationship Specialty Start Date End Date David Bynum MD [address] [address] PCP - General Internal Medicine 05/23/18 Hero Baltazar MD [address] [place] [address] [email or web address] Radiation Oncology 11/28/18 documented as of this encounter Additional Source Comments The information contained in this document represents components of the legal health record. It is not the complete legal health record.[facility]
--- OUTSIDE RECORDS SUMMARY | 2025-06-02 17:52 | XMS_ITS | Encounter Summary ---
Author Organization [facility] Address [address] [facility] [address] [place] [address] Care Team Providers Care Document Management Consultant Name Role Phone David Bynum MD Primary Care Provider [phone] Encounter Details Date Type Department Care Team ([facility] st Contact Info) Description 01/10/2025 Orders Only [facility] [address] [place] [address] Provider, MD Noa Social History Tobacco Use [...] Care Team (Late st Contact Info) Description 06/04/2025 10:30 AM EST Office Visit [facility] [address] [place] [address] David Bynum MD [address] [place] [address] documented as of this encounter Procedures Procedure [...] documented as of this encounter Care Teams Document Management Consultant Relationship Specialty Start Date End Date David Bynum MD [address] [place] [address] PCP - General Internal Medicine 09/22/17 documented as of this encounter
--- OUTSIDE RECORDS SUMMARY | 2025-06-02 17:52 | XMS_ITS | Encounter Summary ---
Author Organization [facility] Address [address] [facility] [address] [place] [address] Care Team Providers Care Optometric Coordinator Name Role Phone David Bynum MD Primary Care Provider [phone] Encounter Details Date Type Department Care Team ([facility] st Contact Info) Description 04/28/2025 Results Follow-Up [facility] [address] [place], [place] [phone] David Bynum MD [address] [place] [address] Urinalysis, Complete, with Reflex to Culture Social [...] Upcoming Encounters Date Type Department Care Team ([facility] st Contact Info) Description 06/04/2025 10:30 AM EST Office Visit [facility] [address] [place] [address] David Bynum MD [address] [place] [address] documented as of this encounter Visit Diagnoses Not on filedocumented in this encounter Additional Health Concerns Assessment Noted Time PHQ-9 Depression Total Score: 0 06/13/20 24 9:57 AM EST documented as of this encounter Care Teams Optometric Coordinator Relationship Specialty Start Date End Date David Bynum MD [address] [place] [address] PCP - General Internal Medicine 09/22/17 documented as of this encounter
--- OUTSIDE RECORDS SUMMARY | 2025-06-02 17:52 | XMS_ITS | Clinical Summary ---
Author Organization [employer] Address [address] [place] [address] 7 [place] [address] Care Team Providers Care Supervisor Waterworks Name Role Phone David Bynum MD Primary Care Provider [phone] Allergies Active Allergy Reactions Criticality Noted Date [...] predniSONE (Deltasone) 1 MG tablet 2 Active hydrocortisone 2.5 % creamIndications: Erythema [...] as directed by MD. 30 patch 3 4 Active Diclofenac Sodium [...] 100 each 11 5 Active sodium chloride (Delta Nasal [place]) 0.65 % nasal spray Administer 1 spray [...] PAIN OR FEVER 60 tablet 5 Active omeprazole OTC (PriLOSEC OTC) 20 MG EC tablet Take 1 tablet (20 mg) by mouth before breakfast. Do not crush, chew, or split. 30 tablet 11 5 05/02/20 26 Active Multiple Vitamins-Minerals (Culturelle Probiotics + Multiv) chewable tablet Take 1 tab daily 30 tablet 3 5 Active Ketotifen Fumarate 0.035 % solution Administer 1 drop into affected eye(s) 2 times daily. 10 mL 1 5 Active Active Problems Problem Noted Date Diagnosed Date Snoring 12/31/2024 Generalized obesity 04/01/2021 Diabetes mellitus without complication 1 Multinodular goiter 09/30/2019 Sleep apnea 09/30/2019 Hypertensive disorder 07/07/2017 Obesity 07/07/2017 Pituitary adenoma (CMS/HCC) 06/30/2017 Resolved Problems Problem Noted Date Diagnosed Date Resolved Date Epistaxis 12/31/2024 05/02/2025 Strep pharyngitis 12/31/2024 05/02/2025 Diarrhea 12/31/2024 05/02/2025 Paronychia of great toe, left 11/25/2022 05/02/2025 Assessment & Plan (11/25/2022 10:58 AM EDT): Patient with paronychia on lateral side of L great big toe and malformation of nail bed. Will refer to Podiatry and start on Keflex ans Cleocin. Routine screening for STI (s exually transmitted infection) 11/25/2022 05/02/2025 Dysuria 11/25/2022 05/02/2025 Assessment & Plan (11/25/2022 10:59 AM EDT): Patient with multiple urinary symptoms. Will check UA and send out swab. Encounters Date Type Department Care Team Description 06/02/2025 Orders Only GENERIC EXTERNAL DATA DEPARTMENT Provider, Generic External Data 05/26/2025 Telephone [facility] [address] [place] [phone] David Bynum MD Nurse Triage 05/21/2025 3:30 PM EDT Office Visit [facility] & PEDS [address] [place], [place] [phone] Elías Adhikari MD Eye swelling, left (Primary Dx) 05/21/2025 Travel 05/20/2025 Telephone [facility] [address] [place] [address] David Bynum MD Nurse Triage 05/08/[address] [address] David Bynum MD Appointment 05/02/2025 9:00 AM EDT Office Visit [facility] [address] [place] [address] Jyoti Salcido MD Gastroenteritis (Primary Dx); Controlled type 2 diabetes mellitus without complication, without long-term current use of insulin ([facility]) 05/02/2025 Travel 04/30/2025 Telephone [facility] [address] [place] [address] David Bynum MD ER Follow-up 04/30/2025 Orders Only [facility] [address] [place] [address] Noa Randolph MD 04/28/2025 Results Follow-Up [facility] [address] [place] [address] David Bynum MD Urinalysis, Complete, with Reflex to Culture 04/28/2025 Telephone [facility] [address] [place] [address] David Bynum MD Nurse Triage 04/21/2025 Results Follow-Up [facility] [address] [place] [address] Carmencita Boyd RN Urinalysis, Complete, with Reflex to Culture 04/18/2025 Orders Only [facility] [address] [place] [address] David Bynum MD Dysuria (Primary Dx) 04/08/2025 Telephone [facility] [address] [place] [address] David Bynum MD 04/04/2025 Telephone [facility] [address] [place] [address] MD 04/01/2025 Orders Only [facility] [address] [place] [address] David Rojas MD 03/28/2025 Orders Only [facility] [address] [place] [address] David Bynum MD Pancytopenia (CMS/HCC) (Primary Dx) 03/26/2025 3:15 PM EDT Office Visit [facility] [address] [place] [address] David Bynum MD Other dysphagia (Primary Dx); Hoarseness; Controlled type 2 diabetes mellitus without complication, without long-term current use of insulin (CMS/HCC); Routine screening for STI (sexually transmitted infection); Epistaxis; Multinodular goiter 03/26/2025 Travel 03/25/2025 Telephone [facility] [address] [place] [address] David Bynum MD chart prep 03/06/2025 Telephone [facility] [address] [place] [phone] David Bynum MD Referral 03/06/2025 Refill [facility] [address] [place], [place] [phone] David Bynum MD from Last 3 Months Immunizations Immunization Administration [...] housing situation today? I have bucky deneen 03/26/[address] you li [...] Access Q2 Not on file 03/26/2025 Comments No Sex and Gender Information Value Date Recorded Sex Assigned at Female 05/30/2022 10:32 AM EDT Legal Sex Female 10:32 AM EDT Gender Identity Female 05/30/2022 10:32 AM EDT Sexual Orientation Straight 05/30/2022 10 :32 AM EDT Last Filed Vital Signs Vital Sign Reading Time Taken Comments Blood Pressure 138/74 05/21/2025 3:27 PM EDT Pulse 88 05/21/2025 3:27 PM EDT Temperature 36.9 C (98.4 F) 05/21/2025 3:27 PM EDT Respiratory Rate 20 05/21/2025 3:27 PM EDT Oxygen Saturation 97% 05/02/2025 9:18 AM EDT Inhaled Oxygen Concentration - - Weight 121 kg (267 lb) 05/21/2025 3:27 PM EDT Height 177.8 cm (5' 10 ) 05/21/2025 3:27 PM EDT Body Mass Index 38.31 05/21/2025 3:27 PM EDT Plan of Treatment Upcoming Encounters Date Type Department Care Team (Late st Contact Info) Description 06/04/2025 10:30 AM EST Office Visit [facility] [address] [place], [place] [phone] David Bynum MD [address] [place] [address] Health Maintenance Due Date Last Done Comments Family Planning (PISQ) 1997 HPV Vaccines (1 - 3-dose series) 1997 Hepatitis B Vaccines (1 of 3 - 19+ 3-dose series) 2001 Diabetes: Urine Protein Screening 07/07/2021 07/07/2020 Lipid Panel 06/17/2022 06/17/2021, 07/07/2020 COVID-19 Vaccine ( - season) 2025 Influenza Vaccine (#1) 2025 [...] 07/02/2025 025, 06/13/2024, 03/11/2024, Additional history exists HPV/Cotest 10/06/2025 10/06/2020, 08/15/2017 Pap Smear 10/06/2025 10/06/2020 Alcohol/Substance Use Screening 03/26/2026 03/26/2025 Disability Screening 03/26/2026 03/26/2025 SDOH Screening 03/26/2026 03/26/2025 Tobacco Screening 05/02/2026 05/02/2025 Eye Exam 12/31/2026 12/31/2024 DTaP/Tdap/Td Vaccines (2 - Td or Tdap) 08/10/2027 08/10/2017 Zoster Vaccines (1 of 2) 01/26/2032 RSV Patients and Patients Aged 60 years or older (1 - 1-dose 75+ series) 2057 HIV Screening Completed 03/27/2025, 0402/2023, 10/06/2020 Hepatitis C Screening Completed 03/27/2025 , [...] Procedure Name Priority Date/Time Associated Diagnosis Comments COMPREHENSIVE METABOLIC PANEL Routine 06/02/2025 1:07 PM EST PROTHROMBIN TIME-INR Routine 06/02/2025 1:07 PM EST CBC WITH AUTO DIFFERENTIAL Routine 06/02/2025 1:07 PM EST POCT GLUCOSE Routine 05/02/2025 9:26 AM EDT Controlled type 2 diabetes mellitus without complication, without long-term current use of insulin (HCC) ECG 12-LEAD Routine 04/29/2025 8:57 AM EDT URINALYSIS, COMPLETE, WITH REFLEX TO CULTURE Routine 04/25/2025 1:29 PM EDT Dysuria US THYROID Routine 04/15/2025 Other dysphagia Hoarseness [...] long-term current use of insulin (CMS/HCC) POCT GLYCATED HEMOGLOBIN, TOTAL Routine 12/31/2024 [...] Relevant to Health Maintenance Results * (ABNORMAL) CBC auto differential (06/02/2025 1:07 PM EST) Only the most recent of2 resultswithin the time period is included. White Blood Count 6.0 4.8 - 10.8 X10*3/uL [facility] Red Blood Count 3.89(L) 4.20 - 5.50 X10*6/uL [facility] Hemoglobin 11.9(L) 12.0 - 16.0 g/dl [facility] Hematocrit 35.3(L) 37.0 - 47.0 % [facility] Mean Corpuscular Volume 90.7 80.0 - 98.0 fL [facility] Mean Corpuscular Hemoglobin 30.6 27.0 - 33.0 pg [facility] Mean Corpuscular HGB Conc 33.7 31.0 - 35.0 g/dl [facility] Red Cell Distribution Width 12.5 11.0 - 16.0 % [facility] Platelet Count 114(L) 160 - 400 X10*3/uL [facility] Mean Platelet Volume 11.0 9.4 - 12.3 fL [facility] Neutrophils Percent Auto 47.2 45 - 73 % [facility] Imm Gran Pct Auto 0.2 0.0 - 0.4 % [facility] Lymphocytes Percent Auto 43.8(H) 20 - 40 % [facility] Monocytes Percent Auto 7.7 2 - 11 % [facility] Eosinophils Percent Auto 0.8 0 - 4 % [facility] Basophils Percent Auto 0.3 0 - 2 % [facility] NRBC Pct Auto 0.0 0.0 - 0.2 /100WBC [facility] Neutrophils Absolute Auto 2.8 2.0 - 8.3 x10*3/uL [facility] Imm Gran Abs Auto 0.01 0.00 - 0.03 X10*3/uL [facility] Lymphocytes Absolute Auto 2.6 1.2 - 4.9 X10*3/uL [facility] Monocytes Absolute Auto 0.5 0.1 - 1.2 X10*3/uL [facility] Eosinophils Absolute Auto 0.1 0.0 - 0.4 X10*3/uL [facility] Basophils Absolute Auto 0.0 0.0 - 0.2 X10*3/uL [facility] NRBC Abs Auto 0.000 0.0 - 0.012 X10*3/uL [facility] 06/02/2025 1:07 PM EST 06/02/2025 1:17 PM EST us Generic External Data Provider LAB BLOOD ORDERAB LES Final Result Performing Organization Address [facility] Co de Phone Number [facility] [address] [place] [phone] * (ABNORMAL) Prothrombin Time-INR (06/02/2025 1:07 PM EST) Prothrombin Time 15.6(H) 10.9 - 12.4 SEC [facility] INTERNATIONAL NORM RATIO 1.4(H) 0.9 - 1.1 [facility] Comment:INTERNATIONAL NORMAL IZED RATIO (INR) REFERENCE RANGES Reference RangeFor patients not on anticoagulant therapy: 0.9 - 1.1INR ranges for oral anticoagulanttherapy:For prevention and treatment of venous thrombosis and pulmonary embolism: 2.0 - 3.0For acute myocardial infarction with aspirin therapy: 2.0 - 3.0For acute myocardial infarction without aspirin therapy: 3.0 - 4.0For patients with mechanical prosthetic heart valves: 2.5 - 3.5 06/02/2025 1:07 PM EST 06/02/2025 1:17 PM EST us Generic External Data Provider LAB BLOOD ORDERAB LES Final Result Performing Organization Address [facility] de Phone Number [facility] [address] [place] [phone] * (ABNORMAL) Comprehensive Metabolic Panel (06/02/2025 1:07 PM EST) Pathologist [facility] Sodium 141 135 - 145 mmol/L [facility] Potassium 3.6 3.3 - 5.1 mmol/L [facility] Chloride 108 96 - 108 mmol/L [facility] Carbon Dioxide 27 22 - 29 mmol/L [facility] Anion Gap 10(L) 12 - 20 [facility] Urea Nitrogen (BUN) 10 9 - 16 mg/dL [facility] Creatinine, Serum 0.60 0.5 - 1.4 mg/dL [facility] Creatinine Clr Calc Pharmacy 176.1 [facility] Comment:Provided height and weight: 180.34 cm,124.6 kg.eGFR (calculated from the MDRD study equation) and eCrCl(calculated from the Cockcroft-Gault equation) are based ondifferent parameters and may not yield comparable results.If eCrCl result is absurd, please check patient'sheight/weight. Estimated Glomerular Filt Rate >60 [facility] Comment:Chronic Kidney Disea se: Estimated GFR < 60 mL/min/1.31e5Zoosge Kidney Disease: Estimated GFR < 15 mL/min/1.73m2 Glucose 72 60 - 115 mg/dL [facility] Calcium 9.0 8.4 - 10.2 mg/dL [facility] Bilirubin, Total 0.8 0.0 - 1.0 mg/dL [facility] Aspartate Amino Transferase 57(H) 5 - 31 U/L [facility] Alanine Aminotransferase 43(H) 0 - 31 U/L [facility] Total Protein 7.4 6.5 - 8.0 g/dL [facility] Albumin Level 4.0 3.5 - 5.0 g/dL [facility] Alkaline Phosphatase 69 39 - 117 U/L [facility] 06/02/2025 1:07 PM EST 06/02/2025 1:17 PM EST us Generic External Data Provider LAB BLOOD ORDERAB LES Final Result [facility] [address] [place] [phone] * POCT Glucose (05/02/2025 9:26 AM EDT) Only the most recent of2 resultswithin the time period is included. Glucose Blood, POC 118 60 - 200 mg/dL QC Media Lot # [id number] Lot# Expiration Date Blood Capillary blood specimen / Unknown 05/02/2025 9:26 AM EDT us Jyoti Salcido MD POINT OF CARE TEST ENTER/EDIT OR DERABLES Final Result * ECG 12 lead (04/29/2025 8:57 AM EDT) us Historical Provider MD ECG ORDERABLES Final Res ult * Urinalysis, Complete, with Reflex to Culture (04/25/2025 1:29 PM EDT) Only the most recent of2 resultswithin the time period is included. Color Urine Yellow [facility] Appearance Urine Hazy [facility] PH 6.5 5.0 - 9.0 [facility] Glucose Urine UA Negative Negative mg/dL [facility] Urine Blood Trace Negative [facility] Specific Corea - Urine 1.010 1.005 - 1.025 [facility] Urine Protein Trace Neg-Trace mg/dL [facility] Urine Ketones Negative Negative mg/dL [facility] Nitrite Urine Negative Negative [facility] Leukocyte Esterase Urine Negative Negative [facility] RBC Urine 0-2 0 - 2 /HPF [facility] Urine WBC 0-5 0 - 5 /HPF [facility] Urine Squamous Epithelial Cell 0-2 0 - 2 /HPF [facility] Urine Bacteria Trace None Seen [facility] Hyaline Casts, Urine 0-2 0 - 2 /LPF [facility] Urine 04/25/2025 1:29 PM EDT 04/25/2025 5:55 PM EDT Narrative [facility] - 04/25/2025 7:31 PM EDT [id number], Clean Catch us David Bynum MD LAB URINE ORDERABLES Final Result [facility] [address] [place] [phone] * US Thyroid (04/15/2025) Anatomical Region Laterality Modality Head, Neck Ultrasound us David Bynum MD IMG US PROCEDURES Final Res ult * Hepatitis C Antibody with Reflex to HCV, RNA, Quantitative, Real-Time PCR (03/27/2025 9:08 AM EDT) Hepatitis C Antibody Nonreactive Nonreactive [facility] Comment:Antibodies to HCV no t detected; does not exclude early acuteHCV infection. Blood Venous blood specimen / Unknown 03/27/2025 9:08 AM EDT 03/27/2025 2:41 PM EDT David Bynum MD LAB BLOOD ORDERABLES Final Result Performing Organization Address [facility] Co de Phone Number [facility] [address] [place] [phone] * RPR (Monitor) with Reflex to??Titer (03/27/2025 9:08 AM EDT) Pathologist [facility] RPR (Monitor) w/Refl Titer NON-REACTI VE NON-REACT DEDE [facility] Comment:THIS TEST WAS PERFOR MED AT:[facility] [place] [phone] STAPLES MD Rapid Plasma Reagin Ab Titer TNP [facility] Blood Venous blood specimen / Unknown 03/27/2025 9:08 AM EDT 03/27/2025 2:41 PM EDT David Bynum MD LAB BLOOD ORDERABLES Final Result Performing Organization Address [facility] de Phone Number [facility] [address] [place] [phone] * HIV-1/2 Antigen and Antibodies, Fourth Generation, with Reflexes (03/27/2025 9:08 AM EDT) Pathologist [facility] HIV AB/AG Nonreactive Nonreactive [facility] Comment:HIV-1 p24 Ag and/or HIV-1/HIV-2 Ab not detected.A test result that is nonreactive does not exclude thepossibility of exposure to or infection with HIV-1 and/orHIV-2. Nonreactive results in this assay for individualswith prior exposure to HIV-1 and/or HIV-2 may be due toantigen and antibody levels that are below the limit ofdetection of this assay.The [employer] Alinity HIV Ag/Ab Combo assay result andsupplemental assay results should be interpreted inconjunction with the patient's clinical presentation,history and other laboratory results. If the results areinconsistent with clinical evidence, additional testing issuggested to confirm the result. Blood Venous blood specimen / Unknown 03/27/2025 9:08 AM EDT 03/27/2025 2:41 PM EDT David Bynum MD LAB BLOOD ORDERABLES Final Result [facility] [address] [place] [address] [phone] * POCT HGB A1C (12/31/2024 4:26 PM EDT) Pathologist [facility] Hemoglobin A1C 5.7 4.0 - 6.0 % QC Media Lot # [id number] Lot# Expiration Date Blood 12/31/2024 4:26 PM EDT Sally Pereira REHABILITATION SERVICES MANAGER POINT OF CARE TEST ENTER/EDIT ORDERABLES Final Result * Diabetes Eye Exam (12/31/2024 9:53 AM EDT) Historical Provider HEALTH MAINTENANCE Final Result * BI Mammogram Screening Tomosynthesis Bilateral (04/20/2023 12:52 PM EDT) Anatomical Region Laterality Modality Breast Bilateral Mammography 04/20/2023 12:5 2 PM EDT Narrative 05/09/2023 1:00 PM EDT [address] [place] [address] Mammography Report Signed Patient: Alton Jimenez MR#: [id number] : 1980 Acct:[id number] Age/Sex: 43 / F ADM Date: 04/20/23 Loc: MAMMO Attending Dr: David Bynum MD Ordering Physician: David Bynum MD Results: 1 Negative Date of Service: 04/20/23 Follow Up: 1 Year From Orig ina Mammogram Procedure(s): MM tomosynthesis screening BI Accession Number(s): [id number] cc: David Bynum MD EXAMINATION: MM SCREENING [...] in OV> 05/09/23 1257 DD/ 1252 TD/TT: Fruit Grader: Procedure Note Donotuseinterpreter, Image - 05/09/2023 Luis Daniel [facility] [address] [place] [address] Mammography Report Signed Patient: Ronda Jimenez#: [id number] : 1980Acct:[id number] Age/Sex: 43 / FADM Date: 04/20/23 Loc: MAMMO Attending Dr: David Bynum MD Ordering Physician: David Bynum MDResults: 1 Negative Date of Service: 04/20/23Follow Up: 1 Year From Orig ina Mammogram Procedure(s): MM tomosynthesis screening BI Accession Number(s): [id number] cc: David Bynum MD EXAMINATION: MM SCREENING [...] in OV> 05/09/23 1257 DD/ 1252 TD/TT: Fruit Grader: David Bynum MD IMG BI PROCEDURES Final [...] liver disease. LDL Cholesterol Calculated 112 mg/dl [facility] Comment: Desirable LDL: less than [...] >60 [facility] Comment: NOTE: For -[place]erm[place] individuals, multiply the result by 1.210. Chronic [...] Vitamin D 25-OH Total 13.6 >30 ng/mL [facility] Comment: Health Based Reference Values* [...] Free T4 0.91 0.32 - 4.0 uIU/mL [facility] Insulin 46(H) 2 - 29 [...] Historical Provider HISTORICAL/NON ORDERABLE LABS Final Result [facility] [address] [place] [address], * THINPREP PAP (10/06/2020 12:09 PM EST) Clinical Information: None given [facility] COMMENT SEE COMMENT [facility] [...] along with historic and current clinical information. Dye Padder Operator : SEE COMMENT [facility] Comment: RK CT(ASCP) CT screening location: [place] [address] Interpretation/R esult: Negative for intraepithelial lesion or malignancy. [facility] LMP: NONE [facility]IVEN [facility] Prev. BX: NONE [facility]IV[facility] Prev. PAP: NONE [facility]IV[facility] SOURCE: None given [facility] Statement Of Adequacy: SEE COMMENT [facility] Comment: Satisfactory for evaluation. Endocervical/transformation zone component absent. Age and/or menstrual status not provided 10/06/2020 12:0 9 PM EST [facility] PATHOLOGY ORDERABLES Final Result Performing Organization Address [facility] Phone Number [facility] [address] [place] [address], * HPV mRNA E6/E7 (10/06/2020 12:09 PM EST) HPV nRNA E6/E7 Not Detected Not Detected [facility] Comment: Methodology: Stage Electrician-Mediated Amplification This assay detects E6/E7 viral messenger RNA (mRNA) from 14 high-risk HPV types (16,18,31,33,35,39,45,51,52,56,58,59,66,68). The analytical performance characteristics of this assay have been determined by [employer]. The modifications have not been cleared or approved by the FDA. This assay has been validated pursuant to the CLIA regulations and is used for clinical purposes. For additional information, please refer to http://education.Anametrix/faq/ICT379o9 (This link if provided for information/ educational purposes only.) 10/06/2020 12:0 9 PM EST [facility] LAB BLOOD ORDERABLES Karine l Result Performing Organization Address [facility] Phone Number [facility] [address] [place] [address], * ALBUMIN, RANDOM URINE W/CREATININE (07/07/2020 8:56 AM EST) Pathologist [facility] Microalbumin Urine 2.8 See Note: mg/dL [facility] Comment: Reference Range: Reference Range [...] Creatinine, Urine 193 20 - 275 mg/dL [facility] 07/07/2020 8:56 AM EST David Bynum MD LAB URINE ORDERABLES Final Result [facility] [address] [place] [address], from Last 3 Months or Most Recently Relevant to Health Maintenance Insurance FULL Care Teams Supervisor Waterworks Relationship Specialty Start Date End Date David Bynum MD [address] [place] [phone] PCP - General Internal Medicine 09/22/17
--- OUTSIDE RECORDS SUMMARY | 2025-06-02 17:52 | XMS_ITS | Encounter Summary ---
Author Organization [employer] Address [address] [facility] [place] [address] Care Team Providers Care Blanching Machine Operator Name Role Phone David Bynum MD Primary Care Provider [phone] Encounter Details Date Type Department Care Team ([facility] st Contact Info) Description 01/10/2025 Orders Only [facility] [address] [place], [place] [phone] David Bynum MD [address] [place] [address] Diarrhea, unspecified type (Primary Dx); Normocytic anemia [...] Description 06/04/2025 10:30 AM EST Office Visit [facility] [address] [place] [address] David Bynum MD [address] [place] [address] documented as of this encounter Procedures Procedure Name Priority Date/Time Associated Diagnosis Comments CBC WITH AUTO DIFFERENTIAL Routine 01/14/2025 Diarrhea, unspecified type documented in this encounter Results * CBC auto differential (01/14/2025) Blood Venous blood specimen / Unknown us David Bynum MD LAB BLOOD ORDERABLES Final Result [facility] [address] [place] [address] [phone] documented in this encounter Visit Diagnoses Diagnosis Diarrhea, unspecified type- Primary Normocytic anemia Unspecified anemia documented in this encounter Additional Health Concerns Assessment Noted Time PHQ-9 Depression Total Score: 0 06/13/20 24 9:57 AM EST documented as of this encounter Care Teams Blanching Machine Operator Relationship Specialty Start Date End Date David Bynum MD [address] [place] [phone] PCP - General Internal Medicine 09/22/17 documented as of this encounter
--- OUTSIDE RECORDS SUMMARY | 2025-06-02 17:52 | XMS_ITS | Encounter Summary ---
Author Organization [employer] Address [address] [facility] 7t [place] [address] Care Team Providers Care Melter Loader Name Role Phone David Bynum MD Primary Care Provider [phone] Encounter Details Date Type Department Care Team ([facility] st Contact Info) Description 04/30/2025 Orders Only [facility] CHC MED & PEDS [address] [place] [address] Provider, MD Noa Social History Tobacco Use [...] Upcoming Encounters Date Type Department Care Team ([facility] st Contact Info) Description 06/04/2025 10:30 AM EST Office Visit [facility] MED & PEDS 505 [place] [address] David Bynum MD 505 [place] [address] documented as of this encounter Procedures Procedure Name Priority Date/Time Associated Diagnosis Comments ECG 12-LEAD Routine 04/29/2025 8:57 AM EDT documented in this encounter Results * ECG 12 lead (04/29/2025 8:57 AM EDT) us Historical Provider ECG ORDERABLES Final Res ult documented in this encounter Visit Diagnoses Not on filedocumented in this encounter Additional Health Concerns Assessment Noted Time PHQ-9 Depression Total Score: 0 06/13/20 24 9:57 AM EST documented as of this encounter Care Teams Melter Loader Relationship Specialty Start Date End Date David Bynum MD 505 [place] [address] PCP - General Internal Medicine 09/22/17 documented as of this encounter
--- OUTSIDE RECORDS SUMMARY | 2025-06-02 17:52 | XMS_ITS | Encounter Summary ---
Author Organization [facility] Address [address] [facility] [address] [place] [address] Phone Care Team Providers Care Electrician Helper Powerhouse Name Role Phone David Bynum MD Primary Care Pr ovider Hero Baltazar MD Unavailable [phone] Encounter Details Date Type Department Care Team (Late st Contact Info) Description 12/14/2018 Radiation Completion Encounter [facility] Dept of Radiation Oncology [address] [address] Hero Baltazar MD [address] [place] [address] [email or web address] Social History Tobacco Use Types Packs/Day Years [...] Description 07/14/2025 1:30 PM EST Office Visit [facility] [address] [place] [address], [facility] [address] [place] [address] Corby Sanchez MD [address] [phone] [email or web address]. u documented as of this encounter Visit Diagnoses Not on filedocumented in this encounter Care Teams Electrician Helper Powerhouse Relationship Specialty Start Date End Date David Bynum MD [address] [address] PCP - General Internal Medicine 05/23/18 Hero Baltazar MD [address] [place] [address] [email or web address] Radiation Oncology 11/28/18 documented as of this encounter Additional Source Comments The information contained in this document represents components of the legal health record. It is not the complete legal health record.[facility]
--- OUTSIDE RECORDS SUMMARY | 2025-06-02 17:52 | XMS_ITS | Encounter Summary ---
Author Organization [employer] Address [address] [place] [address] [place] [address] Care Team Providers Care Access Rep Name Role Phone David Bynum MD Primary Care Provider [phone] Reason for Referral * Imaging (Routine) - Closed Specialty Diagnoses / Procedures Referred By Contac t Referred To Contact Radiology Diagnoses Intervertebral disc stenosis of neural canal of lumbar region Procedures MR Lumbar Spine w/o Contrast David Bynum MD [address] [place] [address] Phone: tel: fax: [facility] Referral ID Status Reason Start Date Expiration Date Visits Re quested Visits Authorized [id number] Closed 10/16/2023 10/15/2024 1 1 Encounter Details Date Type Department Care Team (Late st Contact Info) Description 10/16/2023 Orders Only [facility] CHC MED & PEDS [address] [place] [address] David Bynum MD 505 [place] [address] Intervertebral disc stenosis of neural canal of [...] Description 06/04/2025 10:30 AM EST Office Visit [facility] CHC MED & PEDS 505 [place] [address] David Bynum MD 505 [place] [address] documented as of this encounter Procedures Procedure [...] documented as of this encounter Care Teams Access Rep Relationship Specialty Start Date End Date David Bynum MD [address] [place] [address] PCP - General Internal Medicine 09/22/17 documented as of this encounter
--- OUTSIDE RECORDS SUMMARY | 2025-06-02 17:52 | XMS_ITS | Encounter Summary ---
Author Organization [employer] Address [address] [place] [address] Care Team Providers Care Railways Assistant Name Role Phone David Bynum MD Primary Care Provider [phone] Reason for Visit * Reason Onset Date Comments Referral 04/07/2023 Encounter Details Date Type Department Care Team ([facility] st Contact Info) Description 04/07/2023 Telephone [facility] CHC MED & PEDS 505 [place], [place] [phone] David Bynum MD 505 [place] [address] Referral Social History Tobacco Use Types Packs/Day [...] 1:18 PM EDT referral # faxed to [employer] * Telephone Encounter - Latoya Vuong - 04/07/2023 1:11 PM EDT Tc from pt requesting renewal of referral. Location: [address] Date: n/a Time: n/a Fax: n/a Specialty: orthopedics (knee) documented in this encounter Plan of Treatment Upcoming Encounters Date Type Department Care Team (Late st Contact Info) Description 06/04/2025 10:30 AM EST Office Visit [facility] CHC MED & PEDS 505 [place] [address] David Bynum MD [address] [place] [address] documented as of this encounter Visit Diagnoses Not on filedocumented in this encounter Additional Health Concerns Assessment Noted Time PHQ-9 Depression Total Score: 5 08/30/19 23 4:09 PM EST documented as of this encounter Care Teams Railways Assistant Relationship Specialty Start Date End Date David Bynum MD 505 [place] [address] PCP - General Internal Medicine 09/22/17 documented as of this encounter
--- OUTSIDE RECORDS SUMMARY | 2025-06-02 17:52 | XMS_ITS | Encounter Summary ---
Author Organization [facility] Address [address] [facility] [address] [place] [address] Phone Care Team Providers Care Coin Dealer Name Role Phone David Bynum MD Primary Care Pr ovider Hero Baltazar MD Unavailable [phone] Encounter Details Date Type Department Care Team (Late st Contact Info) Description 11/19/2018 Procedure Pass [facility] Imaging [address] [place] [address] Social History Tobacco Use Types Packs/Day Years [...] Description 07/14/2025 1:30 PM EST Office Visit [facility] [address] [facility], [address] [place] [address] Corby Sanchez MD [address] [phone] [email or web address] documented as of this encounter Visit Diagnoses Not on filedocumented in this encounter Care Teams Coin Dealer Relationship Specialty Start Date End Date David Bynum MD [address] [address] PCP - General Internal Medicine 05/23/18 Hero Baltazar MD 100 [place] [address] [email or web address] Radiation Oncology 11/28/18 documented as of this encounter Additional Source Comments The information contained in this document represents components of the legal health record. It is not the complete legal health record.[facility]
--- OUTSIDE RECORDS SUMMARY | 2025-06-02 17:52 | XMS_ITS | Encounter Summary ---
Author Organization [employer] Address [address] [address] Care Team Providers Care Acid Blower Name Role Phone David Bynum MD Primary Care Provider [phone] Reason for Visit * Reason Onset Date Comments Referral 02/24/2025 Encounter Details Date Type Department Care Team (Late st Contact Info) Description 02/24/2025 Telephone [facility] MEDICINE 230 [place] [address] David Bynum MD 505 [place] [address] Referral Social History Tobacco Use Types Packs/Day [...] Evaluate and treat Sleep Medicine Services Location: [address] [place] [address] 2nd Floor [address] [place] [address] Who are scheduling out for mid to end of April. Pt contacted a different office who would be ableto see her sooner. Pt would like referral modified so she can see : Dr Rosemary Lopez ( neurologist ) [address] [facility] (P) [phone] documented in this encounter Plan of Treatment Upcoming Encounters Date Type Department Care Team ([facility] st Contact Info) Description 06/04/2025 10:30 AM EST Office Visit [facility] MED & PEDS 505 [place] [address] David Bynum MD 505 [place] [address] documented as of this encounter Visit Diagnoses Not on filedocumented in this encounter Additional Health Concerns Assessment Noted Time PHQ-9 Depression Total Score: 0 06/13/20 24 9:57 AM EST documented as of this encounter Care Teams Acid Blower Relationship Specialty Start Date End Date David Bynum MD 505 [place] [address] PCP - General Internal Medicine 09/22/17 documented as of this encounter
--- OUTSIDE RECORDS SUMMARY | 2025-06-02 17:52 | XMS_ITS | Encounter Summary ---
Author Organization [employer] Address [address] [address] Care Team Providers Care Tax Specialist Name Role Phone David Bynum MD Primary Care Provider [phone] Reason for Visit * Reason Onset Date Comments Nurse Triage 12/20/2023 Encounter Details Date Type Department Care Team ([facility] st Contact Info) Description 12/20/2023 Telephone [facility] MEDICINE 230 [place] [address] David Bynum MD 505 [place] [address] Nurse Triage Social History Tobacco Use Types [...] appeared after taking unknown abx bought in [place]. Pt states when she stopped taking this med, symptoms resolved. Pt denies any current symptoms pt was c/o last week. Pt advised if symptoms return to go to ED. Pt agrees with plan. * Telephone Encounter - Shana Meyer LPN - 12/20/2023 11:25 AM EDT Triage call returned to patient with [place] american sign language interpreter [id number]. Patient reports that she has chestpain right [...] plan. Will seek cardiac evaluation at either [facility] ED.Reviewed with pt to contact PCP [...] nurse or provider NOW! Reason: Trouble breathing Kittitian Speaker (Accepted american sign language interpreter) documented in this encounter Plan of Treatment Upcoming Encounters Date Type Department Care Team (Late st Contact Info) Description 06/04/2025 10:30 AM EST Office Visit [facility] MED & PEDS 505 [place] [address] David Bynum MD 505 [place] [address] documented as of this encounter Visit Diagnoses Not on filedocumented in this encounter Additional Health Concerns Assessment Noted Time PHQ-9 Depression Total Score: 5 08/30/19 23 4:09 PM EST documented as of this encounter Care Teams Tax Specialist Relationship Specialty Start Date End Date David Bynum MD 505 [place] [address] PCP - General Internal Medicine 09/22/17 documented as of this encounter
--- OUTSIDE RECORDS SUMMARY | 2025-06-02 17:52 | XMS_ITS | Encounter Summary ---
Author Organization [facility] Address [address] [facility] [address] [place] [address] Phone Care Team Providers Care Property Developer Name Role Phone David Bynum MD Primary Care Pr ovider Hero Baltazar MD Unavailable [phone] Encounter Details Date Type Department Care Team (Late st Contact Info) Description 08/06/2021 Procedure Pass MRI, [facility] Imaging - [place] [address] [place] [address] Social History Tobacco Use Types Packs/Day Years [...] Description 07/14/2025 1:30 PM EST Office Visit [facility] [address] [facility], [address] [place] [address] Corby Sanchez MD 55 [facility] 140 [place] [address] [email or web address] documented as of this encounter Visit Diagnoses Not on filedocumented in this encounter Care Teams Property Developer Relationship Specialty Start Date End Date Beauzile, Thevenin Vikash-Raoul, MD [address] [address] PCP - General Internal Medicine 05/23/18 Hero Baltazar MD 100 [place] [address] [email or web address] Radiation Oncology 11/28/18 documented as of this encounter Additional Source Comments The information contained in this document represents components of the legal health record. It is not the complete legal health record.[facility]
--- OUTSIDE RECORDS SUMMARY | 2025-06-02 17:52 | XMS_ITS | Clinical Summary ---
Author Organization [facility] Address [address] [facility] [address] [place] [address] Phone Care Team Providers Care Auto Dismantler Name Role Phone David Bynum MD Primary Care Pr ovider Hero Baltazar MD Unavailable [phone] Allergies Active Allergy Reactions Criticality Noted Date [...] Noted Date Diagnosed Date Pituitary adenoma 12/07/2018 Social History Tobacco Use Types Packs/Day Years [...] Description 07/14/2025 1:30 PM EST Office Visit [facility] Center [address] [facility], [address] [place] [address] Corby Sanchez MD [address] [facility] [address] [facility] [address] [place] [address] [email or web address] Health Maintenance Due Date Last Done Comments CREATININE LEVEL 1982 POTASSIUM LEVEL 1982 DEPRESSION SCREENING 1994 SMOKING Hx and SMOKELESS TOBACCO SCREENING 1995 HEPATITIS C SCREENING 01/26/2000 HIV ONE-TIME SCREENING (18-65 YEARS) 01/26/2000 PAP SMEAR 2003 INFLUENZA VACCINE (#1) 2025 0, 08/05/2019, 07/07/2017 COVID-19 VACCINE ( season) 2025 MAMMOGRAM 04/20/2025 04/20/2023, 12/0 03/2019, 04/19/2018 SCREENING [...] EDT) GLUCOSE 93 70 - 110 mg/dL [facility] 05/12/2020 8:00 AM EDT 05/12/2020 7:48 PM EDT us Corby Sanchez MD LAB BLOOD BKR ORDERABLES Fin al Result [facility] [address] [place] [address] from Last 3 Months or Most Recently Relevant to Health Maintenance Insurance [employer] Care Teams Auto Dismantler Relationship Specialty Start Date End Date Davdi Bynum MD [address] [place] [address] PCP - General Internal Medicine 05/23/18 Hero Baltazar MD [address] [place] [address] [email or web address] Radiation Oncology 11/28/18 Additional Source Comments The information contained in this document represents components of the legal health record. It is not the complete legal health record.[facility]
--- OUTSIDE RECORDS SUMMARY | 2025-06-02 17:52 | XMS_ITS | Encounter Summary ---
Author Organization [employer] Address [address] [address] Care Team Providers Care Associate Program Manager Name Role Phone David Bynum MD Primary Care Provider [phone] Reason for Visit * Reason Onset Date Comments Nurse Triage 04/28/2025 Encounter Details Date Type Department Care Team ([facility] st Contact Info) Description 04/28/2025 Telephone [facility] CHC MED & PEDS 505 [place] [address] David Bynum MD 505 [place] [address] Nurse Triage Social History Tobacco Use Types [...] encounter Miscellaneous Notes * Telephone Encounter - Shelby Madrid RN - 04/28/2025 3:59 PM EDT No hot mix operator needed as this typewriter aligner speaks Estonian. Call returned to Alton Marlow to triage below at [phone]. Reports having vomiting and diarrhea since yesterday. Pt reports was having dizziness as well. Pt reports having bright red blood in vomit. Denies blood in stool. Mild abdominal pain. Pt also reports weakness. Pt advised of disposition, pt wants PCP to see pt. Advised pt of risk of having large amount of blood in vomit, need for medical evaluation to determine cause of bleed . Pt agrees to seek ER. Will send to team for status check PRN. Protocol Used: Vomiting (Adult) Protocol-Based Disposition: Go to ED Now Positive Triage Question: * Vomiting red blood or black (coffee ground) material * All higher-acuity triage questions were negative * Telephone Encounter - Antwan Alexandre - 04/28/2025 3:49 PM EDT Symptoms: Vomiting, Diarrhea Outcome: Schedule an urgent appointment (within 1 hour) or talk to a nurse or provider soon Reason: Caller denied all higher acuity questions The caller accepted this outcome. Contact pt at [phone] (south sudanese) documented in this encounter Plan of Treatment Upcoming Encounters Date Type Department Care Team ([facility] st Contact Info) Description 06/04/2025 10:30 AM EST Office Visit [facility] MED & PEDS 505 [place] [address] David Bynum MD 505 [place] [address] documented as of this encounter Visit Diagnoses Not on filedocumented in this encounter Additional Health Concerns Assessment Noted Time PHQ-9 Depression Total Score: 0 06/13/20 24 9:57 AM EST documented as of this encounter Care Teams Associate Program Manager Relationship Specialty Start Date End Date David Bynum MD 505 [place] [address] PCP - General Internal Medicine 09/22/17 documented as of this encounter
--- OUTSIDE RECORDS SUMMARY | 2025-06-02 17:52 | XMS_ITS | Encounter Summary ---
Author Organization [facility] Address [address] [facility] [address] [place] [address] Phone Care Team Providers Care Certified Industrial Hygienist Name Role Phone David Bynum MD Primary Care Pr ovider Hero Baltazar MD Unavailable [phone] Encounter Details Date Type Department Care Team (Late st Contact Info) Description 11/19/2018 Procedure Pass [facility] Imaging 55 [place] [address] Social History Tobacco Use Types Packs/Day Years [...] Description 07/14/2025 1:30 PM EST Office Visit [facility] Clinical Center [address] [facility], [address] [place] [address] Corby Sanchez MD [address] [phone] [email or web address] documented as of this encounter Visit Diagnoses Not on filedocumented in this encounter Care Teams Certified Industrial Hygienist Relationship Specialty Start Date End Date David Bynum MD [address] [address] PCP - General Internal Medicine 05/23/18 Hero Baltazar MD 100 [place] [address] [email or web address] Radiation Oncology 11/28/18 documented as of this encounter Additional Source Comments The information contained in this document represents components of the legal health record. It is not the complete legal health record.[facility]
--- OUTSIDE RECORDS SUMMARY | 2025-06-02 17:52 | XMS_ITS | Encounter Summary ---
Author Organization [facility] Address [address] [facility] [address] [place] [address] Phone Care Team Providers Care Gps Navigation Installer Name Role Phone David Bynum MD Primary Care Pr ovider Hero Baltazar MD Unavailable [phone] Encounter Details Date Type Department Care Team (Late st Contact Info) Description 11/19/2018 Procedure Pass [facility] Imaging 55 [place] [address] Social History Tobacco Use Types Packs/Day Years [...] Description 07/14/2025 1:30 PM EST Office Visit [facility] [address] [facility], [address] [place] [address] Corby Sanchez MD [address] [phone] [email or web address] documented as of this encounter Visit Diagnoses Not on filedocumented in this encounter Care Teams Gps Navigation Installer Relationship Specialty Start Date End Date David Bynum MD [address] [address] PCP - General Internal Medicine 05/23/18 Hero Baltazar MD 100 [place] [address] [email or web address] Radiation Oncology 11/28/18 documented as of this encounter Additional Source Comments The information contained in this document represents components of the legal health record. It is not the complete legal health record.[facility]
--- OUTSIDE RECORDS SUMMARY | 2025-06-02 17:52 | XMS_ITS | Encounter Summary ---
Author Organization [employer] Address [address] [facility] 7 [place] [address] Care Team Providers Care Line Server Name Role Phone David Bynum MD Primary Care Provider [phone] Encounter Details Date Type Department Care Team ([facility] st Contact Info) Description 04/18/2025 Orders Only [facility] CHC MED & PEDS [address] [place], [place] [phone] David Bynum MD 505 [place] [address] Dysuria (Primary Dx) Social History Tobacco Use [...] Upcoming Encounters Date Type Department Care Team ([facility] Contact Info) Description 06/04/2025 10:30 AM EST Office Visit [facility] MED & PEDS [address] [place] [address] David Bynum MD 505 [place] [address] documented as of this encounter Procedures Procedure Name Priority Date/Time Associated Diagnosis Comments URINALYSIS, COMPLETE, WITH REFLEX TO CULTURE Routine 04/25/2025 1:29 PM EDT Dysuria documented in this encounter Results * Urinalysis, Complete, with Reflex to Culture (04/25/2025 1:29 PM EDT) Color Urine Yellow [facility] Appearance Urine Hazy [facility] PH 6.5 5.0 - 9.0 [facility] Glucose Urine UA Negative Negative mg/dL [facility] Urine Blood Trace Negative [facility] Specific Villanueva - Urine 1.010 1.005 - 1.025 [facility] Urine Protein Trace Neg-Trace mg/dL [facility] Urine Ketones Negative Negative mg/dL [facility] Nitrite Urine Negative Negative [facility] Leukocyte Esterase Urine Negative Negative [facility] RBC Urine 0-2 0 - 2 /HPF [facility] Urine WBC 0-5 0 - 5 /HPF [facility] Urine Squamous Epithelial Cell 0-2 0 - 2 /HPF [facility] Urine Bacteria Trace None Seen [facility] Hyaline Casts, Urine 0-2 0 - 2 /LPF [facility] Urine 04/25/2025 1:29 PM EDT 04/25/2025 5:55 PM EDT Narrative [facility] - 04/25/2025 7:31 PM EDT [id number], Clean Catch us David Bynum MD LAB URINE ORDERABLES Final Result [facility] [address] [place] [address] [phone] documented in this encounter Visit Diagnoses Diagnosis Dysuria- Primary documented in this encounter Additional Health Concerns Assessment Noted Time PHQ-9 Depression Total Score: 0 06/13/20 24 9:57 AM EST documented as of this encounter Care Teams Line Server Relationship Specialty Start Date End Date David Bynum MD [address] [place] [address] PCP - General Internal Medicine 09/22/17 documented as of this encounter
--- OUTSIDE RECORDS SUMMARY | 2025-06-02 17:52 | XMS_ITS | Encounter Summary ---
Author Organization [employer] Address [address] [facility] 7 [place] [address] Care Team Providers Care Sofa Back Upholsterer Name Role Phone David Bynum MD Primary Care Provider [phone] [phone] Encounter Details Date Type Department Care Team (Late st Contact Info) Description 06/02/2025 Orders Only GENERIC EXTERNAL DATA DEPARTMENT Provider, Generic External Data Social History Tobacco Use Types Packs/Day Years [...] Description 06/04/2025 10:30 AM EST Office Visit [facility] MED & PEDS [address] [place], [place] [phone] David Bynum MD [address] [place], [place] [phone] documented as of this encounter Procedures Procedure Name Priority Date/Time Associated Diagnosis Comments CBC WITH AUTO DIFFERENTIAL Routine 06/02/2025 1:07 PM EST PROTHROMBIN TIME-INR Routine 06/02/2025 1:07 PM EST COMPREHENSIVE METABOLIC PANEL Routine 06/02/2025 1:07 PM EST documented in this encounter Results * (ABNORMAL) Comprehensive Metabolic Panel (06/02/2025 1:07 PM EST) Sodium 141 135 - 145 mmol/L [facility] Potassium 3.6 3.3 - 5.1 mmol/L [facility] Chloride 108 96 - 108 mmol/L [facility] Carbon Dioxide 27 22 - 29 mmol/L [facility] Anion Gap 10(L) 12 - 20 [facility] Urea Nitrogen (BUN) 10 9 - 16 mg/dL [facility] Creatinine, Serum 0.60 0.5 - 1.4 mg/dL [facility] Creatinine Clr Calc Pharmacy 176.1 [facility] Comment:Provided height and weight: 180.34 cm,124.6 kg.eGFR (calculated from the MDRD study equation) and eCrCl(calculated from the Cockcroft-Gault equation) are based ondifferent parameters and may not yield comparable results.If eCrCl result is absurd, please check patient'sheight/weight. Estimated Glomerular Filt Rate >60 [facility] Comment:Chronic Kidney Disea se: Estimated GFR < 60 mL/min/1.57w6Fysbje Kidney Disease: Estimated GFR < 15 mL/min/1.73m2 Glucose 72 60 - 115 mg/dL [facility] Calcium 9.0 8.4 - 10.2 mg/dL [facility] Bilirubin, Total 0.8 0.0 - 1.0 mg/dL [facility] Aspartate Amino Transferase 57(H) 5 - 31 U/L [facility] Alanine Aminotransferase 43(H) 0 - 31 U/L [facility] Total Protein 7.4 6.5 - 8.0 g/dL [facility] Albumin Level 4.0 3.5 - 5.0 g/dL [facility] Alkaline Phosphatase 69 39 - 117 U/L [facility] 06/02/2025 1:07 PM EST 06/02/2025 1:17 PM EST us Generic External Data Provider LAB BLOOD ORDERAB LES Final Result Performing Organization Address City/State/[facility] Co de Phone Number [facility] [address] [place] [phone] * (ABNORMAL) Prothrombin Time-INR (06/02/2025 1:07 PM EST) Prothrombin Time 15.6(H) 10.9 - 12.4 SEC [facility] INTERNATIONAL NORM RATIO 1.4(H) 0.9 - 1.1 [facility] Comment:INTERNATIONAL NORMAL IZED RATIO (INR) REFERENCE [...] Provider LAB BLOOD ORDERAB LES Final Result [facility] [address] [place] [address] [phone] * (ABNORMAL) CBC auto differential (06/02/2025 1:07 PM EST) White Blood Count 6.0 4.8 - 10.8 X10*3/uL [facility] Red Blood Count 3.89(L) 4.20 - 5.50 X10*6/uL [facility] Hemoglobin 11.9(L) 12.0 - 16.0 g/dl [facility] Hematocrit 35.3(L) 37.0 - 47.0 % [facility] Mean Corpuscular Volume 90.7 80.0 - 98.0 fL [facility] Mean Corpuscular Hemoglobin 30.6 27.0 - 33.0 pg [facility] Mean Corpuscular HGB Conc 33.7 31.0 - 35.0 g/dl [facility] Red Cell Distribution Width 12.5 11.0 - 16.0 % [facility] Platelet Count 114(L) 160 - 400 X10*3/uL [facility] Mean Platelet Volume 11.0 9.4 - 12.3 fL [facility] Neutrophils Percent Auto 47.2 45 - 73 % [facility] Imm Gran Pct Auto 0.2 0.0 - 0.4 % [facility] Lymphocytes Percent Auto 43.8(H) 20 - 40 % [facility] Monocytes Percent Auto 7.7 2 - 11 % [facility] Eosinophils Percent Auto 0.8 0 - 4 % [facility] Basophils Percent Auto 0.3 0 - 2 % [facility] NRBC Pct Auto 0.0 0.0 - 0.2 /100WBC [facility] Neutrophils Absolute Auto 2.8 2.0 - 8.3 x10*3/uL [facility] Imm Gran Abs Auto 0.01 0.00 - 0.03 X10*3/uL [facility] Lymphocytes Absolute Auto 2.6 1.2 - 4.9 X10*3/uL [facility] Monocytes Absolute Auto 0.5 0.1 - 1.2 X10*3/uL [facility] Eosinophils Absolute Auto 0.1 0.0 - 0.4 X10*3/uL [facility] Basophils Absolute Auto 0.0 0.0 - 0.2 X10*3/uL [facility] NRBC Abs Auto 0.000 0.0 - 0.012 X10*3/uL [facility] 06/02/2025 1:07 PM EST 06/02/2025 1:17 PM EST us Generic External Data Provider LAB BLOOD ORDERAB LES Final Result [facility] [address] [place] [address] [phone] documented in this encounter Visit Diagnoses Not on filedocumented in this encounter Additional Health Concerns Assessment Noted Time PHQ-9 Depression Total Score: 0 06/13/20 24 9:57 AM EST documented as of this encounter Care Teams Sofa Back Upholsterer Relationship Specialty Start Date End Date David Bynum MD [address] [place] [id number] PCP - General Internal Medicine 09/22/17 documented as of this encounter
--- OUTSIDE RECORDS SUMMARY | 2025-06-02 17:52 | XMS_ITS | Encounter Summary ---
Author Organization [employer] Address [address] [address] Care Team Providers Care Publications Distribution Clerk Name Role Phone David Bynum MD Primary Care Provider [phone]- [phone] Reason for Visit * Reason Onset Date Comments PT1 08/27/2024 Encounter Details Date Type Department Care Team ([facility] Contact Info) Description 08/27/2024 Telephone [facility] MED & PEDS [address] [place], [place] [phone] David Bynum MD [address] [place] [address] PT1 Social History Tobacco Use Types Packs/Day [...] facility name: [facility] Facility Address: [address] [place] [address] Escort needed: Y/N: Yes Do you have a wheelchair: Y/N: No If yes- Manual or electric: Visits: 1-2 times a month for 6 months Date of appt 09/17/24 at 8 am documented in this encounter Plan of Treatment Upcoming Encounters Date Type Department Care Team ([facility] st Contact Info) Description 06/04/2025 10:30 AM EST Office Visit [facility] CH[facility] MED & PEDS [address] [place] [address] David Bynum MD [address] [place] [address] documented as of this encounter Visit Diagnoses Not on filedocumented in this encounter Additional Health Concerns Assessment Noted Time PHQ-9 Depression Total Score: 0 06/13/20 24 9:57 AM EST documented as of this encounter Care Teams Publications Distribution Clerk Relationship Specialty Start Date End Date David Bynum MD [address] [place] [address] PCP - General Internal Medicine 09/22/17 documented as of this encounter
--- OUTSIDE RECORDS SUMMARY | 2025-06-02 17:52 | XMS_ITS | Encounter Summary ---
Author Organization [employer] Address [address] [place] [phone] Care Team Providers Care Advice Nurse Name Role Phone David Bynum MD Primary Care Provider [phone]- [phone] Encounter Details Date Type Department Care Team ([facility] Contact Info) Description [facility] [address] [place], [place] [phone] David Bynum MD [address] [place], [place] [phone] Social History Tobacco Use Types Packs/Day Years [...] Department Care Team (Late Contact Info) Description 06/04/2025 10:30 AM EST Office Visit [facility] CHC MED & PEDS [address] [place], [place] [phone] David Bynum MD [address] [place] [address] documented as of this encounter Visit Diagnoses Not on filedocumented in this encounter Additional Health Concerns Assessment Noted Time PHQ-9 Depression Total Score: 5 08/30/19 23 4:09 PM EST documented as of this encounter Care Teams Advice Nurse Relationship Specialty Start Date End Date David Bynum MD [address] [place] [address] PCP - General Internal Medicine 09/22/17 documented as of this encounter
--- OUTSIDE RECORDS SUMMARY | 2025-06-02 17:52 | XMS_ITS | Encounter Summary ---
Author Organization [employer] Address [address] [facility] 7 [place] [address] Care Team Providers Care Brim Edge Trimmer Name Role Phone David Bynum MD Primary Care Provider [phone] Encounter Details Date Type Department Care Team ([facility] st Contact Info) Description 01/15/2025 Orders Only [facility] [address] [place] [address] ProviderNoa MD Social History Tobacco Use Types [...] Description 06/04/2025 10:30 AM EST Office Visit [facility] MED & PEDS [address] [place] [address] David Bynum MD [address] [place] [address] documented as of this encounter Procedures Procedure [...] documented as of this encounter Care Teams Brim Edge Trimmer Relationship Specialty Start Date End Date David Bynum MD [address] [place] [address] PCP - General Internal Medicine 09/22/17 documented as of this encounter
--- OUTSIDE RECORDS SUMMARY | 2025-06-02 17:52 | XMS_ITS | Encounter Summary ---
Author Organization [email or web address] Address [address] [place] [address] [address] [place] [address] Care Team Providers Care Tape Fastener Machine Operator Name Role Phone David Bynum MD Primary Care Provider [phone] [phone] Encounter Details Date Type Department Care Team (Late Contact Info) Description 12/13/2022 Orders Only [facility] MED [facility] PEDS [address] [place], [place] [phone] Gillian Balderrama LPN Social History Tobacco Use [...] 10:30 AM EST Office Visit [facility] MED & PEDS [address] [place] [address] David Bynum MD [address] [place] [address] documented as of this encounter Visit Diagnoses Not on filedocumented in this encounter Additional Health Concerns Assessment Noted Time PHQ-9 Depression Total Score: 5 08/30/19 23 4:09 PM EST documented as of this encounter Care Teams Tape Fastener Machine Operator Relationship Specialty Start Date End Date David Bynum MD [address] [place] [address] PCP - General Internal Medicine 09/22/17 documented as of this encounter
[2025-06-02 18:41] VITALS: BP 130/77; PULSE 70; RESP 18; O2SAT 100
[2025-06-02 20:25] VITALS: BP 130/77; PULSE 70; RESP 18; TEMP 36.8; O2SAT 100
--- NOTE | 2025-06-02 20:29 | PC.NURSE ---
EKG was ordered just after the patient was discharged by the provider. Dr. Meyers aware. Pt ambulated out of ED with steady gait, denied complaints.
== END 2025-06-02 20:25 | disposition home or self-care (01) ==
PROVIDERS: Physician Assistant Medical; Emergency Provider Emergency Medicine; PCP Internal Medicine
DX: R04.0 Epistaxis (principal); K62.5 Hemorrhage of anus and rectum; R00.2 Palpitations; R42 Dizziness and giddiness; I10 Essential (primary) hypertension; Z79.899 Other long term (current) drug therapy
CPT/HCPCS: 30901; 36415; 80053; 85025; 85610; 99283; 99284